=== PATIENT | female | born 1940 | race Caucasian/White ===

== ENCOUNTER 2017-11-02 09:45 | Emergency (ER) | payer MEDICARE ==
[2017-11-02 10:11] VITALS: RESP 18; TEMP 98.4
--- NOTE | 2017-11-02 10:33 | ED ---
General Adult HPI - General Chief complaint: Extremity Problem,Nontraumatic Stated complaint: Right leg pain Time Seen by Provider: 11/02/17 10:23 Source: patient, family, RN notes reviewed Mode of arrival: wheelchair Limitations: no limitations - History of Present Illness Initial comments: Patient is a pleasant 77-year-old female presenting to the emergency Department with right leg discomfort. Onset of symptoms was a week ago. Patient started with mild discomfort near the right ankle. Patient then went on a long car ride , 800 miles. Patient has had increase discomfort and swelling since that time. Patient states discomfort is somewhat in the foot. Patient states discomfort does extend all the way to the right calf and behind the right knee. Patient states discomfort does extend somewhat up on that as well. Patient states he does feel a little bit swollen. No injury. No redness. No fever. No chest pain or difficulty in breathing. - Related Data Home Medications Medication Instructions Recorded Confirmed Aspirin 81 mg PO DAILY 11/24/15 11/02/17 Atenolol [Tenormin] 25 mg PO DAILY 11/24/15 11/02/17 Benazepril HCl 20 mg PO BID 11/24/15 11/02/17 Levothyroxine Sodium [Levoxyl] 100 mcg PO DAILY 11/24/15 11/02/17 Lovastatin [Mevacor] 20 mg PO HS 11/24/15 11/02/17 Omeprazole [PriLOSEC] 20 mg PO AC-BRKFST 11/24/15 11/02/17 amLODIPine [Norvasc] 10 mg PO DAILY 11/24/15 11/02/17 Calcium Carbonate/Vitamin D3 1 cap PO DAILY 11/02/17 11/02/17 [Calcium 600-Vit D3 500 Softgel] Triamterene-Hctz 37.5-25Mg 1 cap PO DAILY 11/02/17 11/02/17 [Dyazide 37.5-25 Capsule] Previous Rx's Medication Instructions Recorded Cyclobenzaprine [Flexeril] 10 mg PO TID PRN #12 tablet 11/02/17 Allergies Allergy/AdvReac Type Severity Reaction Status Date / Time No Known Allergies Allergy Verified 11/02/17 10:18 Review of Systems ROS Statement: Those systems with pertinent positive or pertinent negative responses have been documented in the HPI. ROS Other: All systems not noted in ROS Statement are negative. Constitutional: Denies: fever Eyes: Denies: eye pain ENT: Denies: ear pain Respiratory: Denies: cough, dyspnea Cardiovascular: Denies: chest pain Endocrine: Denies: fatigue Gastrointestinal: Denies: abdominal pain Genitourinary: Denies: dysuria Musculoskeletal: Denies: back pain Skin: Denies: rash Neurological: Denies: weakness Past Medical History Past Medical History: Coronary Artery Disease (CAD), GERD/Reflux, Hyperlipidemia , Hypertension, Thyroid Disorder Additional Past Medical History / Comment(s): "LOW HR," ON 24H MONITOR THRU TODAY. History of Any Multi-Drug Resistant Organisms: None Reported Past Surgical History: Heart Catheterization With Stent, Tonsillectomy, Tubal Ligation Additional Past Surgical History / Comment(s): BILAT CATARACTS SX. PTCA 2012 EST. COLONOSCOPY Past Anesthesia/Blood Transfusion Reactions: No Reported Reaction Date of Last Stent Placement:: [id number] Past Psychological History: No Psychological Hx Reported Smoking Status: Never smoker Past Alcohol Use History: None Reported Past Drug Use History: None Reported - Past Family History Mother Family Medical History: No Reported History General Exam Limitations: no limitations General appearance: alert, in no apparent distress Head exam: Present: atraumatic Eye exam: Present: normal appearance Neck exam: Present: normal inspection Respiratory exam: Present: normal lung sounds bilaterally Cardiovascular Exam: Present: regular rate, normal rhythm Expanded Peripheral pulses: 2+: Posterior Tibialis (R), Dorsalis Pedis (R) GI/Abdominal exam: Present: soft. Absent: tenderness Extremities exam: Present: calf tenderness, other (No bony tenderness. Swelling is not evident. Patient does have some tenderness behind the right calf and extending behind the right knee. Distally the extremity is neurovascularly intact.) Neurological exam: Present: alert Psychiatric exam: Present: normal affect, normal mood Skin exam: Present: normal color. Absent: rash, erythema Course Vital Signs 11/02/17 10:08 Temperature 98.4 F Pulse Rate 60 Respiratory 18 Rate Blood Pressure 108/60 O2 Sat by Pulse 98 Oximetry Medical Decision Making - Medical Decision Making Patient reevaluated and resting comfortably in bed. Patient and family updated. - Radiology Data Radiology results: report reviewed (Ultrasound right leg shows no dvt.), image reviewed (Right ankle x-ray shows no acute fracture. There is a heel spur.) Disposition Clinical Impression: Leg pain Disposition: HOME SELF-CARE Condition: Stable Instructions: Leg Pain (ED), Edema (ED) Additional Instructions: Please follow-up with primary care physician and orthopedics in the next couple days for recheck. Return for fever, redness, increased pain, increased swelling , worsening symptoms or other concerns. Prescriptions: Cyclobenzaprine [Flexeril] 10 mg PO TID PRN #12 tablet PRN Reason: Pain Is patient prescribed a controlled substance at d/c from ED?: No Referrals: Ryan Christiansen MD [Primary Care Provider] - 1-2 days Time of Disposition: 11:40
--- NOTE | 2017-11-02 11:13 | US ---
EXAMINATION TYPE: US venous doppler duplex LE RT DATE OF EXAM: 11/02/2017 11:08 AM COMPARISON: NONE CLINICAL HISTORY: Pain and swelling right ankle. Recent 800 mile car ride. SIDE PERFORMED: Right TECHNIQUE: The lower extremity deep venous system is examined utilizing real time linear array sonog matthieu with graded compression, doppler sonography and color-flow sonography. VESSELS IMAGED: External Iliac Vein (EIV) Common Femoral Vein Deep Femoral Vein Greater Saphenous Vein * Femoral Vein Popliteal Vein Small Saphenous Vein * Proximal Calf Veins (* superficial vessels) Grayscale, color doppler, spectral doppler imaging performed of the deep veins of the right lower ext remity. There is normal flow, compressibility, vascular waveforms. Right Leg: Negative for DVT IMPRESSION: No sonographic evidence of deep venous thrombosis within the right lower extremity.
--- NOTE | 2017-11-02 11:29 | XR ---
EXAMINATION TYPE: XR ankle complete RT DATE OF EXAM: 11/02/2017 CLINICAL HISTORY: Right ankle pain with no known injury TECHNIQUE: Frontal, lateral and oblique images of the right ankle are obtained. COMPARISON: None. FINDINGS: There is no acute fracture/dislocation evident in the right ankle. The ankle mortise appe ars within normal limits. The overlying soft tissue appears unremarkable. Small plantar heel spurs/e nthesophyte is seen. IMPRESSION: There is no acute fracture or dislocation in the right ankle. Small plantar heel spur.
[2017-11-02] MEDS ORDERED: ORPHENADRINE 30 MG/ML 2 ML VIAL IM STA (11:38)
[2017-11-02 12:03] VITALS: BP 110/56; PULSE 62
== END 2017-11-02 12:02 | disposition home or self-care (01) ==
LOC: EC 09:45
DX: M79.604 Pain in right leg (principal); M77.31 Calcaneal spur, right foot; E78.5 Hyperlipidemia, unspecified; I10 Essential (primary) hypertension; I25.10 Atherosclerotic heart disease of native coronary artery without angina pectoris; K21.9 Gastro-esophageal reflux disease without esophagitis; E07.9 Disorder of thyroid, unspecified; Z79.82 Long term (current) use of aspirin; Z79.899 Other long term (current) drug therapy
CPT/HCPCS: 73610; 93971; 99284; 96372; J2360

== ENCOUNTER → 2017-11-20 | Outpatient (CLI) | payer MEDICARE ==
--- NOTE | 2017-11-22 11:24 | MM ---
Reason for exam: screening (asymptomatic). Last mammogram was performed 6 years and 1 month ago. History: Patient is postmenopausal. Physical Findings: A clinical breast exam by your physician is recommended on an annual basis and results should be correlated with mammographic findings. MG 3D Screening Mammo W/Cad Bilateral CC and MLO view(s) were taken. Prior study comparison: October 18, 2011, bilateral digital screening mammo w/CAD. September 21, 2010, bilateral digital screening mammo w/CAD. There are scattered fibroglandular densities. There is chronic nodularity in the right breast. No significant changes when compared with prior studies. ASSESSMENT: Negative, BI-RAD 1 RECOMMENDATION: Routine screening mammogram of both breasts in 1 year.
== END | disposition home or self-care (01) ==
LOC: RADMAMWWP 13:37
PROVIDERS: ATTEND Internal Medicine
DX: Z12.31 Encounter for screening mammogram for malignant neoplasm of breast (principal)
CPT/HCPCS: 77063; 77067

== ENCOUNTER → 2020-11-01 | Outpatient (CLI) | payer MEDICARE ==
--- NOTE | 2020-11-01 12:48 | MR ---
EXAMINATION TYPE: MR lumbar spine wo con DATE OF EXAM: 11/01/2020 COMPARISON: NONE HISTORY: Low back pain into rt lower extremity, burning and numbness in lower extremities TECHNIQUE: T1 and T2 axial and sagittal images of the lumbar spine are submitted. FINDINGS: There is no abnormal signal seen within the visualized spinal cord or paraspinal soft tissu es. History of the right kidney with multiple tiny cysts. Simple cyst involving the left kidney noted and there is a 3.3 cm abdominal aortic aneurysm. There is a moderate superior endplate compression fracture of T12 which appears chronic. At T12-L1 there is degenerative disc disease but no disc herniation or canal stenosis. No foraminal e ncroachment. At L1-2 there is degenerative disc disease but no disc herniation or canal stenosis. No foraminal enc roachment. At L2-3 there is degenerative disc disease but no disc herniation or canal stenosis. No foraminal enc roachment. At L3-4 there is degenerative disc disease but no disc herniation or canal stenosis. No foraminal enc roachment. Facet arthropathy noted. At L4-5 there is degenerative disc disease but no disc herniation or canal stenosis. No foraminal enc roachment. Facet arthropathy noted. Mild circumferential disc bulging. At L5-S1 there is degenerative disc disease but no disc herniation or canal stenosis. No foraminal en croachment. facet arthropathy noted. IMPRESSION: 1. Multilevel degenerative disc disease and facet arthropathy. Chronic appearing superior endplate co mpression fracture T12. 2. No disc herniation. There is very mild disc bulging noted at L4-5 and L5-S1 centrally. No focal he rniation or canal stenosis. 3. 3.3 cm abdominal aortic aneurysm 4. Atrophic right kidney.
== END | disposition home or self-care (01) ==
LOC: RADMRIMAIN 08:50
PROVIDERS: ATTEND Internal Medicine
DX: M51.27 Other intervertebral disc displacement, lumbosacral region (principal); M51.36 Other intervertebral disc degeneration, lumbar region; M47.816 Spondylosis without myelopathy or radiculopathy, lumbar region; I71.4 Abdominal aortic aneurysm, without rupture; N26.1 Atrophy of kidney (terminal)
CPT/HCPCS: 72148

== ENCOUNTER 2020-12-14 05:45 | Emergency (ER) | payer MEDICARE ==
[2020-12-14 05:54] VITALS: TEMP 98.4
[2020-12-14] MEDS ORDERED: KETOROLAC 15 MG/ML 1 ML VIAL IVP STA (06:22)
[2020-12-14] MEDS ORDERED: ONDANSETRON 4 MG/2 ML VIAL IVP STA (06:22)
[2020-12-14] MEDS ORDERED: HYDROmorphone 0.5 MG/0.5 ML SYRINGE IVP STA (06:22)
[2020-12-14] MEDS ORDERED: atenoloL 50 MG TAB PO STA (06:25)
[2020-12-14] MEDS ORDERED: LOSARTAN 50 MG TAB PO STA (06:25)
[2020-12-14] MEDS ORDERED: methylPREDNISolone SOD SUCCI 125 MG/2 ML VIAL IV STA (06:25)
--- NOTE | 2020-12-14 06:56 | ED ---
Back Pain HPI - General Chief Complaint: Back Pain/Injury Stated Complaint: Back Pain Time Seen by Provider: 12/14/20 06:03 Source: patient, RN notes reviewed Mode of arrival: ambulatory Limitations: no limitations - History of Present Illness Initial Comments: This is a 80-year-old female presents emergency Department with chief complaint of low back pain. This has been ongoing issue. Patient had an MRI ordered and completed by her PCP patient did follow-up with Dr. Taylor in which she is ordered epidural injections. Patient has not been contacted for her plane he had. Patient states the pain states her low back she does have some right lower leg symptoms. This is been ongoing denies any bowel, bladder incontinence or retention last seizures states that she takes tramadol occasionally for the pain she did recently complete Medrol Dosepak which she states she felt better on the higher dose - Related Data Home Medications Medication Instructions Recorded Confirmed Aspirin 81 mg PO HS 11/24/15 12/14/20 Levothyroxine Sodium [Levoxyl] 100 mcg PO DAILY 11/24/15 12/14/20 Omeprazole [PriLOSEC] 20 mg PO AC-BRKFST 11/24/15 12/14/20 atenoloL [Tenormin] 25 mg PO DAILY 11/24/15 12/14/20 Acetaminophen Tab [Tylenol] 650 mg PO Q4H PRN 12/14/20 12/14/20 Atorvastatin [Lipitor] 40 mg PO HS 12/14/20 12/14/20 Calcium Carbonate [Calcium] 600 mg PO BID 12/14/20 12/14/20 Cyanocobalamin (Vitamin B-12) 1,000 mcg PO DAILY 12/14/20 12/14/20 [Vitamin B-12] Gabapentin [Neurontin] 300 mg PO TID 12/14/20 12/14/20 Losartan Potassium 100 mg PO DAILY 12/14/20 12/14/20 hydrALAZINE HCL [Apresoline] 25 mg PO TID 12/14/20 12/14/20 methylPREDNISolone Dose Pack See Taper PO DIRECTED 12/14/20 12/14/20 [Medrol Dose Pack] traMADol HCL 25 mg PO TID PRN 12/14/20 12/14/20 Previous Rx's Medication Instructions Recorded HYDROcodone/APAP 5-325MG [[place] 5] 1 each PO Q6HR PRN #12 tab 12/14/20 Allergies Allergy/AdvReac Type Severity Reaction Status Date / Time No Known Allergies Allergy Verified 12/14/20 07:42 Review of Systems ROS Statement: Those systems with pertinent positive or pertinent negative responses have been documented in the HPI. ROS Other: All systems not noted in ROS Statement are negative. Past Medical History Past Medical History: Coronary Artery Disease (CAD), GERD/Reflux, Hyperlipidem ia, Hypertension, Thyroid Disorder Additional Past Medical History / Comment(s): "LOW HR," ON 24H MONITOR THRU TODAY. History of Any Multi-Drug Resistant Organisms: None Reported Past Surgical History: Heart Catheterization With Stent, Tonsillectomy, Tubal Ligation Additional Past Surgical History / Comment(s): BILAT CATARACTS SX. PTCA 2012 EST. COLONOSCOPY Past Anesthesia/Blood Transfusion Reactions: No Reported Reaction Date of Last Stent Placement:: [id number] Past Psychological History: No Psychological Hx Reported Smoking Status: Never smoker Past Alcohol Use History: None Reported Past Drug Use History: None Reported - Past Family History Mother Family Medical History: No Reported History General Exam General appearance: alert, in no apparent distress Head exam: Present: atraumatic, normocephalic, normal inspection Respiratory exam: Present: normal lung sounds bilaterally. Absent: respiratory distress, wheezes, rales, rhonchi, stridor Cardiovascular Exam: Present: regular rate, normal rhythm, normal heart sounds. Absent: systolic murmur, diastolic murmur, rubs, gallop, clicks GI/Abdominal exam: Present: soft, normal bowel sounds. Absent: distended, tenderness, guarding, rebound, rigid Extremities exam: Present: normal inspection, full ROM, normal capillary refill. Absent: tenderness, pedal edema, joint swelling, calf tenderness Back exam: Present: full ROM, tenderness, paraspinal tenderness. Absent: vertebral tenderness Neurological exam: Present: alert, oriented X3, reflexes normal. Absent: motor sensory deficit Skin exam: Present: warm, dry, intact, normal color. Absent: rash Course Vital Signs 12/14/20 12/14/20 12/14/20 05:51 07:00 08:06 Temperature 98.4 F Pulse Rate 63 56 L Respiratory 18 16 Rate Blood Pressure 220/95 210/106 163/84 O2 Sat by Pulse 98 100 Oximetry 12/14/20 12/14/20 08:47 10:10 Temperature Pulse Rate 54 L 60 Respiratory 16 18 Rate Blood Pressure 148/78 139/62 O2 Sat by Pulse 100 93 L Oximetry Medical Decision Making - Medical Decision Making 80-year-old female presented for back pain. I did review the MRI which showed degenerative changes. Patient was seen by Dr. Taylor and referred to pain management. I did contact pain management the did not have an appointment schedule though there is a referral as I talked to salvador Hatch on-call for Dr. Taylor. Patient will follow-up in office for further pain medication. Patient will be written [place] Disposition Clinical Impression: Lumbar radiculopathy, Hypertension Disposition: HOME SELF-CARE Condition: Stable Instructions (If sedation given, give patient instructions): Acute Low Back Pain (ED) Additional Instructions: Please return to the Emergency Department if symptoms worsen or any other concerns. Prescriptions: HYDROcodone/APAP 5-325MG [[place] 5] 1 each PO Q6HR PRN #12 tab PRN Reason: Pain Is patient prescribed a controlled substance at d/c from ED?: Yes When asked, does pt state using other controlled substances?: Yes If prescribed controlled substance>3 days was MAPS reviewed?: Prescribed <3 Days If opioid is for acute pain is fill amount 7 days or less?: Yes If Rx opioid, was Start Talking consent form obtained?: Yes Referrals: Levi Garg MD [Primary Care Provider] - 1-2 days Time of Disposition: 10:27
[2020-12-14] MEDS ORDERED: hydrALAZINE HCL 20 MG/ML 1 ML VIAL IVP STA (07:22)
[2020-12-14 10:13] VITALS: BP 139/62; PULSE 60; RESP 18
== END 2020-12-14 11:11 | disposition home or self-care (01) ==
LOC: EC 05:45
DX: M54.16 Radiculopathy, lumbar region (principal); I10 Essential (primary) hypertension; I25.10 Atherosclerotic heart disease of native coronary artery without angina pectoris; E78.5 Hyperlipidemia, unspecified; K21.9 Gastro-esophageal reflux disease without esophagitis; Z79.82 Long term (current) use of aspirin; Z79.890 Hormone replacement therapy; Z79.899 Other long term (current) drug therapy
CPT/HCPCS: 96374; 96375 ×4; 99283; J0360; J2930; J2405; J1885; J1170

== ENCOUNTER 2021-01-04 06:57 | Day surgery (SDC) | payer MEDICARE ==
[2020-12-31 16:02] VITALS: BMI 31.1
[~2021-01-04 06:57] MED LIST: LACTATED RINGERS 1,000 ML IV SCH
[2021-01-04 07:24] VITALS: RESP 16; TEMP 97.6
[2021-01-04] MEDS ORDERED: LIDOCAINE 1% (10MG/ML) FOR IV START INTRADERMA ONE (07:28)
[2021-01-04] MEDS ORDERED: MIDAZOLAM 2 MG/2 ML VIAL ONE (07:41)
[2021-01-04] MEDS ORDERED: methylPREDNISolone ACETATE 40 MG/ML 1 ML VIAL ONE (07:41)
[2021-01-04] MEDS ORDERED: fentaNYL (PF) 50 MCG/ML 2 ML AMP ONE (07:41)
[2021-01-04] MEDS ORDERED: IOPAMIDOL M200 10 ML VIAL ONE (07:41)
--- NOTE | 2021-01-04 07:54 | P.PCN ---
Date of Procedure: 01/04/21 Procedure(s) Performed: PREOPERATIVE DIAGNOSIS: 1- Lumbar Degenerative Disc Diseases 2-Lumbar spondylosis with Facet arthropathy without myelopathy POSTOPERATIVE DIAGNOSIS: Same as preop diagnosis. PROCEDURE 1. Lumbar epidural steroid injection under fluoroscopic guidance at the L5-S1 level. (Fluoroscopy imaging was available in radiology department) 2. Lumbar epidurogram. ANESTHESIA: Local with 1% lidocaine 3 ml and , moderate sedation with intravenous Versed 1 mg ,and fentanyle 50 Mcg EBL: Minimal PROCEDURE INDICATION: The patient with low back pain and radiculitis symptoms unresponsive to conservative treatment. Fluoroscopy was used to optimize visualization of the needle placement and to maximize safety. PROCEDURE DESCRIPTION / TECHNIQUE: The patient was seen and identified in the preoperative area. Risks, benefits, complications including but not limited to infections ,bleeding ,allergic reaction to the medications ,nerve damage and not complete pain releife , and alternatives were discussed with the patient. The patient agreed to proceed with the procedure and signed the consent. IV was started, and vital signs were stable. Patient was taken to the OR and time out was completed. The patient was placed in the prone position on procedure table and a pillow was placed under the abdomen to reduce lumbar lordosis. The lumbosacral area was prepped and draped in the usual sterile fashion.ere closely monitored during the procedure. Co nscious sedation was used during the procedure to decrease patients anxiety. Vital signs was monitered during the entire procedure. Using anterior-posterior fluoroscopy, the L5-S1 interlaminar space was identified and the skin over this site was marked and then infiltrated with 1% lidocaine subcutaneously. Subsequently, a 20-gauge Tuohy epidural needle was inserted and advanced toward the epidural space using the ``Loss of resistance technique and guided by AP and lateral fluoroscopy. The correct needle position in the epidural space was verified with the injection of 2 mL of the water solub le contrast dye Isovue 200 contrast and observing an excellent epidurogram with the epidural spread of the dye, after negative aspiration for blood and CSF and in the absence of paresthesias. Again after negative aspiration, a 6 ml mixture containing 40 mg of Depo-medrol , and 2 ml of preservative free Normal Saline, and 2 ml of preservative free lidocaine 1% solution was injected and a washout of epidurogram was seen. Needle was withdrawn intact, skin was cleansed, and bandages were applied. COMPLICATIONS: None DISPOSITION / PLANS: The patient was placed in a supine position and transferred to the recovery area in a stable condition for observation. There was no evidence of lower extremity motor or sensory deficit after the procedure. Patient was discharged from the recovery room after meeting discharge criteria. Home discharge instructions were given to the patient by the staff. The patient was reexamined prior to discharge. The patient will schedule a follow up in the clinic in 2-4 weeks.
[2021-01-04] MEDS ORDERED: IV FLUID CONTINUATION 1,000 ML IV ONE (07:57)
[2021-01-04 08:13] VITALS: BP 149/85; PULSE 57
--- NOTE | 2021-01-04 08:25 | FL ---
EXAMINATION TYPE: FL guided pain mgmt statistic DATE OF EXAM: 01/04/2021 CLINICAL HISTORY: Low back pain. TECHNIQUE: Fluoroscopy. COMPARISON: None. FINDINGS: Fluoroscopic guidance was provided during pain relief procedure performed by Dr. Grover . A total of 3 seconds of fluoroscopic time was utilized during the procedure and 1 spot images are acquired. Single image acquired shows needle localization at L5 level. IMPRESSION: As Above.
== END 2021-01-04 08:28 | disposition home or self-care (01) ==
LOC: ORPAIN 06:57
PROVIDERS: ATTEND Specialist
DX: M51.36 Other intervertebral disc degeneration, lumbar region (principal); M47.816 Spondylosis without myelopathy or radiculopathy, lumbar region
CPT/HCPCS: 62323; J2250; J1030; J3010; Q9966

== ENCOUNTER 2021-02-08 08:48 | Day surgery (SDC) | payer MEDICARE ==
[2021-02-04 14:28] VITALS: BMI 29.2
[2021-02-08 09:39] VITALS: RESP 16; TEMP 97.9
[2021-02-08] MEDS ORDERED: LIDOCAINE 1% (10MG/ML) FOR IV START INTRADERMA ONE (09:41)
[2021-02-08] MEDS ORDERED: ROPIVACAINE 5MG/ML 20ML VIAL ONE (09:59)
[2021-02-08] MEDS ORDERED: IOPAMIDOL M200 10 ML VIAL ONE (09:59)
[2021-02-08] MEDS ORDERED: MIDAZOLAM 2 MG/2 ML VIAL ONE (09:59)
[2021-02-08] MEDS ORDERED: fentaNYL (PF) 50 MCG/ML 2 ML AMP ONE (09:59)
[2021-02-08] MEDS ORDERED: TRIAMCINOLONE ACETONIDE 40 MG/ML 1 ML VIAL ONE (09:59)
--- NOTE | 2021-02-08 10:13 | P.PCN ---
Date of Procedure: 02/08/21 Surgeon: Cynthia Olson Pathology: none sent Condition: stable Disposition: PACU Description of Procedure: 1-Lumbar radiculopathy 2- Lumber Degenerative Disc Diseases. POSTOPERATIVE DIAGNOSIS: 1-Lumbar radiculopathy. 2-Lumbar Degenerative Disc Diseases PROCEDURE 1. Lumbar epidural steroid injection under fluoroscopic guidance at the L5-S1 level in the right paramedian approach. 2. Lumbar epidurogram. ANESTHESIA: Local with 1% lidocaine; and IV moderate conscious sedation with Versed and fentanyl EBL: Minimal PROCEDURE INDICATION: The patient with low back pain and radiculitis symptoms u nresponsive to conservative treatment. Fluoroscopy was used to optimize visualization of the needle placement and to maximize safety. PROCEDURE DESCRIPTION / TECHNIQUE: The patient was seen and identified in the preoperative area. Risks, benefits, complications including but not limited to infections ,bleeding ,allergic reaction to the medications ,nerve damage and not complete pain relief , and alternatives were discussed with the patient. The patient agreed to proceed with the procedure and signed the consent. IV was started, and vital signs were stable. Patient was taken to the OR and time out was completed. The patient was placed in the prone position on procedure table and a pillow was placed under the abdomen to reduce lumbar lordosis. The lumbosacral area was prepped and draped in the usual sterile fashion with ChloraPrep.Patient was closely monitored during the procedure. Conscious sedation was used during the procedure to decrease patients anxiety. Vital signs were monitered during the entire procedure. Using anterior-posterior fluoroscopy, the L5-S1 interlaminar space was identified and the skin over this site was marked and then infiltrated with 1% lidocaine subcutaneously. Subsequently, a 20-gauge Tuohy epidural needle was inserted and advanced toward the epidural space using the Loss of resistance to air technique and guided by AP and lateral fluoroscopy. The correct needle position in the epidural space was verified with the injection of 1 mL of the water soluble contrast dye Omnipaque 180 contrast and observing an excellent epidurogram with the epidural spread of the dye, after negative aspiration for blood and CSF and in the absence of paresthesias. Again after negative aspiration, a 7 ml mixture containing 40 mg of Kenalog and 5 ml of preservative free Normal Saline, and 2 ml of preservative free ropivacaine 0.5% solution was injected and a washout of epidurogram was seen. Needle was withdrawn intact, skin was cleansed, and bandages were applied. patient tolerated procedure well and was transferred to PACU in stable condition.A copy of the needle placement picture was saved to the fluoroscopy machine. COMPLICATIONS: None DISPOSITION / PLANS: The patient was placed in a supine position and transferred to the recovery area in a stable condition for observation. There was no evidence of lower extremity motor or sensory deficit after the procedure. Patient was discharged from the recovery room after meeting discharge criteria. Home discharge instructions were given to the patient by the staff. The patient was reexamined prior to discharge. The patient will schedule a follow up in the clinic in 2-4 weeks.
[2021-02-08] MEDS ORDERED: IV FLUID CONTINUATION 750 ML IV ONE (10:20)
--- NOTE | 2021-02-08 10:22 | FL ---
Fluoroscopy INDICATION: Pain FINDINGS: Fluoroscopy time: 4 seconds. Images obtained: 2. IMPRESSIONS: 1. Documentation of fluoroscopy.
[2021-02-08 10:52] VITALS: BP 129/76; PULSE 55
== END 2021-02-08 10:55 | disposition home or self-care (01) ==
LOC: ORPAIN 08:48
PROVIDERS: ATTEND Anesthesiology
DX: M51.16 Intervertebral disc disorders with radiculopathy, lumbar region (principal)
CPT/HCPCS: 62323; J2250; J3301; J3010; Q9966; J2795; 99152

== ENCOUNTER → 2021-03-09 | Outpatient (CLI) | payer MEDICARE ==
[2021-03-09 11:13] VITALS: BP 192/98; PULSE 66; RESP 18; TEMP 98
--- NOTE | 2021-03-09 11:38 | P.PN ---
Subjective Progress Note Date: 03/09/21 This 80-year-old female presenting to clinic today for follow-up appointment for continued chronic low back pain. She has been diagnosed with lumbar degenerative disc disease, lumbar spondylosis without myelopathy. Previously we have done 2 lumbar epidural steroid injections at L5-S1. Patient reports that she's had about 50% relief with these injections however her low back pain continues. Pain increases with any activity. Patient completed physical therapy about 4 years ago when she continued to need to do home exercise program including stretching. She continues to use oral pain medications include tramado without any significant relief. Objective - Vital Signs Vital signs: Vital Signs Temp 98.0 F 03/09/21 11:08 Pulse 66 03/09/21 11:08 Resp 18 03/09/21 11:08 BP 192/98 03/09/21 11:08 Pulse Ox 97 03/09/21 11:08 Intake & Output 03/08/21 03/09/21 03/09/21 18:59 06:59 18:59 Weight 76.204 kg - Exam Physical Examinations : -Constitutiona : Cooperative , not in acute distress . -HEENT : nech : supple , no Lymphadenopathy , normal thyroid size . : eyes : no ptosis , no icterus, no photophobia . - neurologic : Cranial nerve II to XII intact , no focal neurological deffecit . -psychatric : alert , oriented X 3 , appropriate affect , intact judgment and insight . -Lymphatic : no Lymphadenopathy . - musculoskeltal : Lumber spine moter stegnth lower extremities ,thigh and legs 5/5 Right side , 5/5 Left side deep tendon reflexes : normal Knee Jerk , normal ankle Jerk lumber facet Loading Test =positive Right , positive Left Range of motion of the lumbar spine Flexion 30 degrees, extension 10 degrees strait leg raising test = positive right side at 60 tenderness over the Sacroiliac joint on the Right , and Left sides Assessment and Plan Plan: Assessment and plan #1 lumbar disc disease. #2 lumbar spondylosis with facet arthropathy. Patient would be a good candidate for agnostic bilateral lumbar medial branch block L4/5 and L5-S1 Time with Patient: Less than 30
== END ==
LOC: PNWHC3 10:38
PROVIDERS: ATTEND Specialist
DX: M51.36 Other intervertebral disc degeneration, lumbar region (principal); M47.816 Spondylosis without myelopathy or radiculopathy, lumbar region
CPT/HCPCS: 99211

== ENCOUNTER 2021-04-29 06:57 | Day surgery (SDC) | payer MEDICARE ==
[2021-04-27 15:54] VITALS: BMI 29.2
[2021-04-29] MEDS ORDERED: LACTATED RINGERS 1,000 ML IV SCH (07:24)
[2021-04-29 07:39] VITALS: TEMP 97.8
[2021-04-29] MEDS ORDERED: LIDOCAINE 1% (10MG/ML) FOR IV START INTRADERMA ONE (07:39)
[2021-04-29] MEDS ORDERED: TRIAMCINOLONE ACETONIDE 40 MG/ML 1 ML VIAL ONE (08:10)
[2021-04-29] MEDS ORDERED: ROPIVACAINE 5MG/ML 20ML VIAL ONE (08:10)
--- NOTE | 2021-04-29 08:26 | P.PCN ---
Date of Procedure: 04/29/21 Procedure(s) Performed: PREOPERATIVE DIAGNOSIS : 1- Lumbar spondylosis with Facet Arthropathy without myelopathy . 2- Lumber degenerative disc disease POSTOPERATIVE DIAGNOSIS: 1- Lumbar spondylosis with Facet Arthropathy without myelopathy . 2- Lumber degenerative disc disease PROCEDURE: Diagnostic bilateral L3 , L4 , and L5 medial branch block under fluoroscopy guidance(fluoroscopy images available in the radiology Department ) ( To target the facet joint between Bilateral L4-5 , and L5-S1 ) ANESTHESIA: Monitored anesthesia care as per anesthesia department. EBL: Minimal COMPLICATION: None PROCEDURE INDICATION: Chronic low back pain secondary to Facet arthropathy unresponsive to conservative treatment. PROCEDURE DESCRIPTION: the patient was seen and identified in the preop holding area , risks and benefits and possible complications of the procedure and alternative were discussed with the patient, and the patient agreed to proceed with the procedure and signed the consent and vital signs monitored during the procedure and fluoroscopy was used to maximize the benefit and accuracy of the needle placement, and sedation was given to decrease patient anxiety, patient was taken to the procedure room and placed in prone position vital signs monitored in the back prepped with chlorhexidine X3 then under strict sterile technique using a right oblique fluoroscopy ,the junction of the transverse process and the superior articulating process of the right L3 , L4 , and L5 vertebra which corresponding to the fluoroscopy image of the eye of the Jhonatan dog on the block side for the medial branches and subsequently , after local infiltration of skin and subcu tissuies with Ropivacaine 0.5 % , one mL at each level ,then 22-gauge Quincke-type needles , 3 needle was used , each one of them placed at the junction of the base of the transverse process and the superior articular process at the appropriate level, and the needle was advanced until the periosteum contacted, needle placement confirmed with AP oblique and lateral view and after appropriate needle placement confirmed, and after negative aspiration for heme and CSF and there was no paresthesia 1-1/2 mL of Ropivacaine 0.5% mixed with 20 mg Kenalog, then half mL injected at each level after negative aspiration the needle subsequently removed and the same procedure repeated for the left side at left side at L3 , L4 and L5 levels. At the end of the procedure and the needles removed and a bandage applied after the skin was cleaned the cleaning solution patient taken to recovery room in stable condition and monitors in the recovery room for 20-30 minutes and discharged home in stable condition after discharge criteria met and patient will follow up with the pain clinic in 2-4 weeks
[2021-04-29] MEDS ORDERED: IV FLUID CONTINUATION 1,000 ML IV ONE (08:29)
[2021-04-29 08:32] VITALS: RESP 18
[2021-04-29 08:49] VITALS: BP 167/88; PULSE 50
--- NOTE | 2021-04-29 08:51 | FL ---
Fluoroscopy INDICATION: Pain FINDINGS: Fluoroscopy time: 9 seconds. Images obtained: 4. IMPRESSIONS: 1. Documentation of fluoroscopy.
[2021-04-29] MEDS ORDERED: MIDAZOLAM 2 MG/2 ML VIAL ONE (09:39)
[2021-04-29] MEDS ORDERED: .fentaNYL (PF) 50 MCG/ML 2 ML AMP ONE (09:39)
== END 2021-04-29 09:00 | disposition home or self-care (01) ==
LOC: ORPAIN 06:57
PROVIDERS: ATTEND Specialist
DX: G89.29 Other chronic pain (principal); M54.50 Low back pain, unspecified; M47.816 Spondylosis without myelopathy or radiculopathy, lumbar region; M51.16 Intervertebral disc disorders with radiculopathy, lumbar region; I10 Essential (primary) hypertension; E78.5 Hyperlipidemia, unspecified; E07.9 Disorder of thyroid, unspecified; K21.9 Gastro-esophageal reflux disease without esophagitis; Z97.2 Presence of dental prosthetic device (complete) (partial); Z79.890 Hormone replacement therapy; Z79.891 Long term (current) use of opiate analgesic; Z79.899 Other long term (current) drug therapy
CPT/HCPCS: 64493; 64494; J2250; J3301; J3010; J2795

== ENCOUNTER 2021-06-10 06:48 | Day surgery (SDC) | payer MEDICARE ==
[2021-06-07 11:36] VITALS: BMI 29.6
[2021-06-10 07:23] VITALS: RESP 16; TEMP 97.1
[2021-06-10] MEDS ORDERED: LACTATED RINGERS 1,000 ML IV ONE (07:50)
[2021-06-10] MEDS ORDERED: fentaNYL (PF) 50 MCG/ML 2 ML AMP ONE (08:22)
[2021-06-10] MEDS ORDERED: methylPREDNISolone ACETATE 40 MG/ML 1 ML VIAL ONE (08:22)
[2021-06-10] MEDS ORDERED: MIDAZOLAM 2 MG/2 ML VIAL ONE (08:22)
[2021-06-10] MEDS ORDERED: ROPIVACAINE 5MG/ML 20ML VIAL ONE (08:22)
--- NOTE | 2021-06-10 08:38 | P.PCN ---
Date of Procedure: 06/10/21 Procedure(s) Performed: PREOPERATIVE DIAGNOSIS : 1- Lumbar spondylosis with Facet Arthropathy without myelopathy . 2- Lumber degenerative disc disease POSTOPERATIVE DIAGNOSIS: 1- Lumbar spondylosis with Facet Arthropathy without myelopathy . 2- Lumber degenerative disc disease PROCEDURE: Diagnostic bilateral L3 , L4 , and L5 medial branch block under fluoroscopy guidance(fluoroscopy images available in the radiology Department ) ( To target the facet joint between Bilateral L4-5 , and L5-S1 )# 2nd ANESTHESIA: Monitored anesthesia care as per anesthesia department. EBL: Minimal COMPLICATION: None PROCEDURE INDICATION: Chronic low back pain secondary to Facet arthropathy unresponsive to conservative treatment. PROCEDURE DESCRIPTION: the patient was seen and identified in the preop holding area , risks and benefits and possible complications of the procedure and alternative were discussed with the patient, and the patient agreed to proceed with the procedure and signed the consent and vital signs monitored during the procedure and fluoroscopy was used to maximize the benefit and accuracy of the needle placement, and sedation was given to decrease patient anxiety, patient was taken to the procedure room and placed in prone position vital signs monitored in the back prepped with chlorhexidine X3 then under strict sterile technique using a right oblique fluoroscopy ,the junction of the transverse process and the superior articulating process of the right L3 , L4 , and L5 vertebra which corresponding to the fluoroscopy image of the eye of the Jhonatan dog on the block side for the medial branches and subsequently , after local infiltration of skin and subcu tissuies with Ropivacaine 0.5 % , one mL at each level ,then 22-gauge Quincke-type needles , 3 needle was used , each one of them placed at the junction of the base of the transverse process and the superior articular process at the appropriate level, and the needle was advanced until the periosteum contacted, needle placement confirmed with AP oblique and lateral view and after appropriate needle placement confirmed, and after negative aspiration for heme and CSF and there was no paresthesia 1-1/2 mL of Ropivacaine 0.5% mixed with 20 mg Depo-Medrol, then half mL injected at each level after negative aspiration the needle subsequently removed and the same procedure repeated for the left side at left side at L3 , L4 and L5 levels. At the end of the procedure and the needles removed and a bandage applied after the skin was cleaned the cleaning solution patient taken to recovery room in stable condition and monitors in the recovery room for 20-30 minutes and discharged home in stable condition after discharge criteria met and patient will follow up with the pain clinic in 2-4 weeks
--- NOTE | 2021-06-10 08:45 | FL ---
EXAMINATION TYPE: FL guided pain mgmt statistic DATE OF EXAM: 06/10/2021 CLINICAL HISTORY: Low back pain. TECHNIQUE: Fluoroscopy. COMPARISON: None. FINDINGS: Fluoroscopic guidance was provided during pain relief procedure performed by Dr. Grover . A total of 4 seconds of fluoroscopic time was utilized during the procedure and 4 spot images are acquired. Images acquired shows needle localization at several levels in the lower lumbar spine off the midline bilaterally. IMPRESSION: As Above.
[2021-06-10] MEDS ORDERED: IV FLUID CONTINUATION 1,000 ML IV ONE (08:47)
[2021-06-10] MEDS ORDERED: LACTATED RINGERS 1,000 ML IV SCH (08:52)
[2021-06-10 09:01] VITALS: BP 170/75; PULSE 56
== END 2021-06-10 09:15 | disposition home or self-care (01) ==
LOC: ORPAIN 06:48
PROVIDERS: ATTEND Specialist
DX: G89.29 Other chronic pain (principal); M47.816 Spondylosis without myelopathy or radiculopathy, lumbar region; I10 Essential (primary) hypertension; E78.5 Hyperlipidemia, unspecified; E07.9 Disorder of thyroid, unspecified; G43.909 Migraine, unspecified, not intractable, without status migrainosus; K21.9 Gastro-esophageal reflux disease without esophagitis; Z98.51 Tubal ligation status; Z97.2 Presence of dental prosthetic device (complete) (partial); Z79.890 Hormone replacement therapy; Z79.891 Long term (current) use of opiate analgesic; Z79.899 Other long term (current) drug therapy
CPT/HCPCS: 64493; 64494; J2250; J1030; J3010; J2795

== ENCOUNTER → 2021-06-30 | Outpatient (CLI) | payer MEDICARE ==
[2021-06-30 10:29] VITALS: BP 182/84; PULSE 66; RESP 18; TEMP 98
--- NOTE | 2021-06-30 10:47 | P.PN ---
Subjective Progress Note Date: 06/30/21 Principal diagnosis: A 80 yr old female with a history of severe and chronic low back pain secondary to lumbar degenerative disc diseases and lumbar spondylosis with facet arthropathy presents today for follow-up for a bilateral facet block of the medial branches at L4-L5 and L5-S1 #2. She states she experienced 75% pain relief for one hours status post procedure and was disconcerted when the pain started to return again. Pain level is currently at 2 out of 10 in intensity dull and achy in the right aspect of the lumbar spine as progresses to 5 out of 10 in intensity with activity such as lifting, twisting, vacuuming and laying on her right side. Pain is alleviated with medications, icy hot topical, injections, physical therapy 6 years ago, laying supine on her left side and rest. Interventional pain procedures completed include LESIs and facet block of the medial branches L4-L5 to L5-S1 #2 Patient is currently on tramadol and Tylenol OTC Patient denies any side effects of the medication(s), denies excessive drowsiness or sleepiness, denies suicidal ideation and reports that the current pain medication is helping to control the pain and improve activities of daily living. Patient denies any motor or sensory deficits. Patient denies any fever or night sweats, denies any change in the bowel movements or urination. Physical Examination: -Constitutional: Cooperative. Not in acute distress . -HEENT: Neck is supple. No lymphadenopathy. No thyromegaly. Normal thyroid size. Eyes: No ptosis , no icterus, no photophobia. ENT: No auditory deficits. Normal oropharynx. No Thrush. - Respiratory: Chest clear to auscultations bilaterally. No wheezing. No rhonchi. - Cardiovascular: Regular rate and rhythm. S1 / S2 , no S3 , no S4. - Gastrointestinal: Abdomen soft no tenderness. Bowel sounds positive in all four quadrants. No organomegaly. - Genitourinary: Deferred. - Neurologic: Cranial nerve II to XII intact. No focal neurological deficits. - Psychatric: Alert & oriented x 3. Matching mood & appropriate affect. Judgment and insight intact. - Lymphatic: No Lymphadenopathy. - Musculoskeletal: Cervical spine: Muscle bulk/ tone/ strength in the bilateral upper extremities normal. Facet loading test cervical area positive. Lumbar spine: Motor bulk/ tone/ strength lower extremities , thigh and legs : 5/5 Deep tendon reflexes : Normal Knee Jerk. Normal Ankle Jerk . Vertebral body tenderness to palpation over Lumbar Facet Loading Test positive over bilateral L4-L5 and L5-S1 with jump reflex Moderate lumbar paraspinal spasms noted on the right L4 to L5 Straight Leg Raise: positive at 30 degrees right side/ left side Gaenslen's Test postive Sacral spine : Severe tenderness over the Sacroiliac joint: right side / left side Range of motion: Flexion of the lumbar spine <60 degrees Range of motion: Extension of the lumbar spine <20 degrees Gaenslen's Test positive Karen test: positive right side / left side Assessment and plan: Chronic low back pain secondary to lumbar degenerative disc disease , lumbar spondylosis with facet arthropathy without myelopathy Recommendation of bilateral RFA of the L4-L5 and L5-S1 Risks, benefits of procedure discussed and patient verbalized understanding Denies use of aspirin or anticoagulants All patient questions answered MAPS reviewed and it was appropriate. I have spent 31 minutes on patient care today. Dr Grover was available by phone for the evaluation of this patient. The time was used to review the medical records including relevant urine studies and Prescription history (MAPs), review of the available imaging, evaluation and examination of the patient, coordination of care with the medical staff and if applicable referring physicians, as well as creation of the medical record Objective - Vital Signs Vital signs: Vital Signs Temp 98.0 F 06/30/21 10:19 Pulse 66 06/30/21 10:19 Resp 18 06/30/21 10:19 BP 182/84 06/30/21 10:19 Pulse Ox 96 06/30/21 10:19 PQRS Measure Charge Sheet Mode of Arrival: Ambulatory - Pain Location Lower Back Non-Pharmacological Interventions: Heat, Inactivity, Position/Reposition Pharmacological Interventions: Block, Epidural, PRN Medication, Topical Medication PQRS Narrative: Smoking Status Never smoker Blood Pressure 182/84 Pain Intensity [Lower Back] 2 Scale Used Numeric (1 - 10) Hx Alcohol Use (MH) No Home Medications: Ambulatory Orders Levothyroxine Sodium [Levoxyl] 100 mcg PO DAILY 11/24/15 Omeprazole [PriLOSEC] 20 mg PO AC-BRKFST 11/24/15 Acetaminophen Tab [Tylenol] 650 mg PO Q4H PRN 12/14/20 Atorvastatin [Lipitor] 40 mg PO HS 12/14/20 Calcium Carbonate [Calcium] 600 mg PO BID 12/14/20 Losartan Potassium 100 mg PO DAILY 12/14/20 hydrALAZINE HCL [Apresoline] 50 mg PO TID 12/14/20 traMADol HCL 25 - 50 mg PO DAILY 12/14/20 Cyanocobalamin (Vitamin B-12) [Vitamin B-12] 1,000 mcg PO DAILY 12/31/20 Atenolol [Tenormin] 50 mg PO DAILY 06/07/21 Doxylamine Succinate [Unisom] 25 mg PO HS 06/07/21
== END ==
LOC: PNWHC3 09:57
PROVIDERS: ATTEND Physician Assistant Medical
DX: M51.36 Other intervertebral disc degeneration, lumbar region (principal); M47.816 Spondylosis without myelopathy or radiculopathy, lumbar region; G89.29 Other chronic pain
CPT/HCPCS: 99211

== ENCOUNTER 2021-08-12 06:43 | Day surgery (SDC) | payer MEDICARE ==
[2021-08-10 15:59] VITALS: BMI 28.9
[2021-08-12] MEDS ORDERED: LACTATED RINGERS 1,000 ML IV SCH (06:52)
[2021-08-12] MEDS ORDERED: LIDOCAINE 1% (10MG/ML) FOR IV START INTRADERMA PRN (06:52)
[2021-08-12 07:05] VITALS: TEMP 97
[2021-08-12] MEDS ORDERED: fentaNYL (PF) 50 MCG/ML 2 ML AMP ONE (07:48)
[2021-08-12] MEDS ORDERED: ROPIVACAINE 5MG/ML 20ML VIAL ONE (07:48)
[2021-08-12] MEDS ORDERED: methylPREDNISolone ACETATE 40 MG/ML 1 ML VIAL ONE (07:48)
[2021-08-12] MEDS ORDERED: MIDAZOLAM 2 MG/2 ML VIAL ONE (07:48)
--- NOTE | 2021-08-12 08:13 | P.PCN ---
Date of Procedure: 08/12/21 Procedure(s) Performed: PREOPERATIVE DIAGNOSIS: 1-Lumbar Spondylosis with Facet Arthropathy without myelopathy. 2- Lumber degenerative disc disease. POSTOPERATIVE DIAGNOSIS: 1- Lumbar Spondylosis with Facet Arthropathy without myelopathy. 2- Lumber degenerative disc disease. PROCEDURES : Bilateral Radiofrequency thermocoagulation, L3 , L4 , and L5 medial branch, with fluoroscopic guidance (fluoroscopy images available in the radiology department) ( to denervate the facet joint at bilateral L4-5 ,and L5-S1 levels ). ANESTHESIA: Monitored anesthesia care as per anesthesia department . EBL: Minimal PROCEDURE INDICATION: The patient with low back pain secondary to lumbar facet arthropathy who had more than 50% relief of her pain with previous diagnostic lumbar medial branch block with bupivacaine. PROCEDURE DESCRIPTION / TECHNIQUE: The patient was seen and identified in the preoperative area. Risks, benefits, complications, including but not limited to risk of infection ,bleeding , allergic reactions to the medications and no complete pain releife , and alternatives were discussed with the patient, the patient agreed to proceed with the procedure and signed the consent. IV was started. Vital signs remained stable throughout the procedure. Patient was taken to the OR and time out was completed. The patient was placed in the prone position on the procedure table. The lumber area was prepped and draped in the usual sterile fashion. . Vital signs were closely monitored during the procedure .IV sedation was used during the procedure to decrease patients anxiety. Using AP and then oblique fluoroscopy, the ``eye of the Jhonatan dog aviva esponding to the connection between the superior and transverse articular processes of right L3, L4, and L5 were identified, marked, and localized with 1% lidocaine. Subsequently, a [id number] radiofrequency cannula with a 10- mm active tip was advanced guided by fluoroscopy to each of the``eyes of the Jhonatan dog at right L3, L4, and L5. Each site then underwent sensory testing at 50 Hz and 0 to 1 volt and motor testing at 2.5 Hz and 0 to 3 volt with local stimulation, but no radicular symptoms down the legs. Thereafter each sites underwent radiofrequency thermocoagulation at 80 degrees celsius for 90 seconds after injecting 0.5 ml of PF Ropivacaine 1ml, then after the thermocoagulation done , 1 ml of the block solution containing Depo-Medrol 20 mg and 3 ml of Ropivacaine 0.5% was injected at the right L3 , L4 , and L5 , levels after negative aspiration of CSF and blood and with no paresthesias. Cannulas were retracted while injecting lidocaine 1% until the needle is out. The same procedure was repeated at the level of Left L3, L4, and L5 levels. At the end of the procedure, the skin was cleansed and bandages were applied. COMPLICATIONS: No acute complications. DISPOSITION / PLANS: The patient was placed in a supine position and transferred to the recovery area in a stable condition for observation and was discharged from the recovery room after meeting discharge criteria. Home discharge instructions given to the patient by the staff. The patient was reexamined prior to discharge. The patient will schedule a follow up in the clinic in 2-4 weeks.
[2021-08-12] MEDS ORDERED: IV FLUID CONTINUATION 1,000 ML IV ONE ×2 (08:17)
--- NOTE | 2021-08-12 08:25 | FL ---
EXAMINATION TYPE: FL guided pain mgmt statistic DATE OF EXAM: 08/12/2021 CLINICAL HISTORY: Low back pain. TECHNIQUE: Fluoroscopy. COMPARISON: None. FINDINGS: Fluoroscopic guidance was provided during pain relief procedure performed by Dr. Grover . A total of 18 seconds of fluoroscopic time was utilized during the procedure and 6 spot images are acquired. Images acquired shows needle localization at multiple levels in the lumbar spine. IMPRESSION: As Above.
[2021-08-12 08:34] VITALS: BP 160/77; PULSE 52; RESP 18
== END 2021-08-12 08:46 | disposition home or self-care (01) ==
LOC: ORPAIN 06:43
PROVIDERS: ATTEND Specialist
DX: M51.36 Other intervertebral disc degeneration, lumbar region (principal); M47.816 Spondylosis without myelopathy or radiculopathy, lumbar region; I25.10 Atherosclerotic heart disease of native coronary artery without angina pectoris; F41.8 Other specified anxiety disorders; I12.9 Hypertensive chronic kidney disease with stage 1 through stage 4 chronic kidney disease, or unspecified chronic kidney disease; E07.9 Disorder of thyroid, unspecified; N18.9 Chronic kidney disease, unspecified; E78.5 Hyperlipidemia, unspecified; Z86.718 Personal history of other venous thrombosis and embolism; Z90.49 Acquired absence of other specified parts of digestive tract
CPT/HCPCS: 64635; 64636 ×2; J2250; J1030; J3010; J2795

== ENCOUNTER → 2021-08-29 | Outpatient (CLI) | payer MEDICARE ==
[2021-08-29 10:35] VITALS: BP 149/72; PULSE 73; RESP 18
--- NOTE | 2021-08-29 10:54 | P.PN ---
Subjective Progress Note Date: 08/29/21 Principal diagnosis: A 80 yr old female with a history of severe and chronic mid & low back pain secondary to degenerative disc diseases and spondylosis with facet arthropathy presents today for evaluation status post bilateral RFA of L4-L5 and L5-S1. Patient states she experienced 75% pain relief status post procedure. Pain level is currently at 2 out of 10 in intensity, constant, achy in the mid and lower aspects of the lumbar spine which radiates to the lower extremities, right greater than left. Pain escalates as high as 5 out of 10 in intensity with bending, lifting and twisting. Pain is alleviated with medications, injections, heat, physical therapy in the past, home stretching regimen, repositioning and rest. Interventional pain procedures completed include BL RFA L4-L5, L5-S1 Patient is currently on Tramadol from Dr Benedict and Tylenol OTC Patient denies any side effects of the medication(s), denies excessive drowsiness or sleepiness, denies suicidal ideation and reports that the current pain medication is helping to control the pain and improve activities of daily living. Patient denies any motor or sensory deficits. Patient denies any fever or night sweats, denies any change in the bowel movements or urination. Physical Examination: -Constitutional: Cooperative. Not in acute distress . -HEENT: Neck is supple. No lymphadenopathy. No thyromegaly. Normal thyroid size. Eyes: No ptosis , no icterus, no photophobia. ENT: No auditory deficits. Normal oropharynx. No Thrush. - Respiratory: Chest clear to auscultations bilaterally. No wheezing. No rhonchi. - Cardiovascular: Regular rate and rhythm. S1 / S2 , no S3 , no S4. - Gastrointestinal: Abdomen soft no tenderness. Bowel sounds positive in all four quadrants. No organomegaly. - Genitourinary: Deferred. - Neurologic: Cranial nerve II to XII intact. No focal neurological deficits. - Psychatric: Alert & oriented x 3. Matching mood & appropriate affect. Judgment and insight intact. - Lymphatic: No Lymphadenopathy. - Musculoskeletal: Cervical spine: Muscle bulk/ tone/ strength in the bilateral upper extremities normal. Facet loading test cervical area positive. Thoracic spine: Vertebral body tenderness to palpation over T6-T11 with accompanying paraspinal TTP Lumbar spine: Motor bulk/ tone/ strength lower extremities , thigh and legs : 5/5 Deep tendon reflexes : Normal Knee Jerk. Normal Ankle Jerk . Vertebral body tenderness to palpation over Lumbar Facet Loading Test positive Straight Leg Raise: positive at 30 degrees right side/ left side Gaenslen's Test positive Sacral spine : Severe tenderness over the Sacroiliac joint: right side / left side Range of motion: Flexion of the lumbar spine <60 degrees Range of motion: Extension of the lumbar spine <20 degrees Gaenslen's Test positive Karen test: positive right side / left side Assessment and plan: Chronic low back pain secondary to lumbar degenerative disc disease , lumbar spondylosis with facet arthropathy without myelopathy, Thoracic DDD MRI of the Thoracic spine without contrast re: Thoracic DDD All patient questions answered MAPS reviewed and it was appropriate. I have spent 31 minutes on patient care today. Dr Grover was available by phone for the evaluation of this patient. The time was used to review the medical records including relevant urine studies and Prescription history (MAPs), review of the available imaging, evaluation and examination of the patient, coordination of care with the medical staff and if applicable referring physicians, as well as creation of the medical record Objective - Vital Signs Vital signs: Vital Signs Temp Pulse 73 08/29/21 10:31 Resp 18 08/29/21 10:31 BP 149/72 08/29/21 10:31 Pulse Ox 96 08/29/21 10:31 PQRS Measure Charge Sheet Mode of Arrival: Ambulatory - Pain Location Lower Back Non-Pharmacological Interventions: Heat, Home Exercise, Inactivity, Physical Therapy, Position/Reposition, Stretching Pharmacological Interventions: Block, PRN Medication PQRS Narrative: Smoking Status Never smoker Blood Pressure 149/72 Pain Intensity [Lower Back] 2 Scale Used Numeric (1 - 10) Hx Alcohol Use (MH) No Home Medications: Ambulatory Orders Levothyroxine Sodium [Levoxyl] 100 mcg PO DAILY 11/24/15 Omeprazole [PriLOSEC] 20 mg PO AC-BRKFST 11/24/15 Acetaminophen Tab [Tylenol] 650 mg PO Q4H PRN 12/14/20 Atorvastatin [Lipitor] 40 mg PO HS 12/14/20 Calcium Carbonate [Calcium] 600 mg PO BID 12/14/20 Losartan Potassium 100 mg PO DAILY 12/14/20 hydrALAZINE HCL [Apresoline] 50 mg PO TID 12/14/20 traMADol HCL 25 - 50 mg PO TID PRN 12/14/20 Cyanocobalamin (Vitamin B-12) [Vitamin B-12] 1,000 mcg PO DAILY 12/31/20 Atenolol [Tenormin] 50 mg PO DAILY 06/07/21 Doxylamine Succinate [Unisom] 25 mg PO HS 06/07/21 DULoxetine HCL [Cymbalta] 30 mg PO DAILY 08/10/21 Aspirin [Adult Low Dose Aspirin EC] 81 mg PO HS 08/25/21
== END ==
LOC: PNWHC3 10:00
PROVIDERS: ATTEND Specialist
DX: M51.36 Other intervertebral disc degeneration, lumbar region (principal); M47.816 Spondylosis without myelopathy or radiculopathy, lumbar region; G89.29 Other chronic pain; M51.34 Other intervertebral disc degeneration, thoracic region
CPT/HCPCS: 99211

== ENCOUNTER → 2021-10-19 | Outpatient (CLI) | payer MEDICARE ==
--- NOTE | 2021-10-20 03:12 | MR ---
EXAMINATION TYPE: MR thoracic spine wo con DATE OF EXAM: 10/19/2021 COMPARISON: None HISTORY: Back pain Multiplanar multiecho imaging of the thoracic spine with no contrast. Normal alignment. There is some anterior wedging and depression of the superior endplate of T12 verte bra 25%. Fracture unchanged compared to 11/01/2020 MR scan. There is some mild biconcave deformity of upper thoracic vertebra. There is no thoracic paraspinal mass. No thoracic spinal stenosis. Thoracic spinal cord has fairly normal signal pattern. No edema. No thoracic paraspinal mass. No evidence of a ny significant thoracic disc herniation. Posterior elements are intact. IMPRESSION: Old mild T12 compression fracture. No acute fracture seen. No spinal stenosis. There is some mild bic oncave changes in the upper thoracic spine consistent with some osteomalacia.
== END | disposition home or self-care (01) ==
LOC: RADMRIMAIN 19:49
PROVIDERS: ATTEND Internal Medicine
DX: M54.9 Dorsalgia, unspecified (principal)
CPT/HCPCS: 72146

== ENCOUNTER → 2021-11-01 | Outpatient (CLI) | payer MEDICARE ==
--- NOTE | 2021-11-01 18:41 | US ---
EXAMINATION TYPE: US duplex aorta DATE OF EXAM: 11/01/2021 COMPARISON: NONE CLINICAL HISTORY: 81-year-old female I71.4 ABDOMINAL AORTIC ANEURYSM, WITHOUT RUPTURE. Patient states having AAA. HTN. Nonsmoker. Technique: Multiple sonographic images of the abdominal aorta are obtained. FINDINGS: EXAM MEASUREMENTS: Abdominal Aorta: Proximal: 2.4 x 2.4 cm Mid: 1.5 x 1.7 cm Distal: 1.6 x 1.9 cm Bifurcation: Right- 0.9 x 0.9 cm Left- 0.9 x 0.9 cm Aneurysm visualized at mid level of Aorta = 3.7 x 3.7 and spanning 3.1 cm long. Some crescentic mural -based plaque is present within the aneurysm. IMPRESSION: Mid AAA measuring 3.7 cm.
== END | disposition home or self-care (01) ==
LOC: RADUSWWP 14:35
PROVIDERS: ATTEND Internal Medicine
DX: I71.4 Abdominal aortic aneurysm, without rupture (principal)
CPT/HCPCS: 93979

== ENCOUNTER → 2021-12-26 | Outpatient (CLI) | payer MEDICARE ==
--- NOTE | 2021-12-26 16:33 | BD ---
EXAMINATION TYPE: Axial Bone Density DATE OF EXAM: 12/26/2021 COMPARISON: NONE CLINICAL HISTORY: 81 year old Female. ICD-10 CODE: Z13.820 ENCOUNTER FOR SCREENING FOR OSTEOPOROSIS Height: 61 Weight: 146.8 FRAX RISK QUESTIONS: Alcohol (3 or more units per day): no Family History (Parent hip fracture): no Glucocorticoids (More than 3mos): no (Ex: prednisone, prednisolone, methylprednisolone, dexamethasone, and hydrocortisone). History of Fracture in Adulthood: no Secondary Osteoporosis: 1. Type 1 Diabetes: no 2. Hyperthyroidism: no 3. Menopause before 45: no 4. Malnutrition: no 5. Chronic liver disease: no Rheumatoid Arthritis: no Current Tobacco Use: no RISK FACTORS HISTORY OF: Surgery to Spine/Hip(right/left)/Wrist (right/left): no Family History of Osteoporosis: yes Active: no Diet low in dairy products/other sources of calcium: no Postmenopausal woman: yes Lost more than 2 inches in height since high school: no MEDICATIONS: Thyroid Medications: thyroid How Lon years Additional History: EXAM MEASUREMENTS: Bone mineral densitometry was performed using the [facility]. Bone mineral density as measured about the Lumbar spine is: ----- L1-L4(G/cm2): 0.824 T Score Values are as follows: ----- L1: -3.2 ----- L2: -3.3 ----- L3: -3.3 ----- L4: -2.4 ----- L1-L4: -3.0 Bone mineral density has: decreased -13.9 % since study of: 08.08.2001 Bone mineral density about the R hip (g/cm2): 0.677 Bone mineral density about the L hip (g/cm2): 0.707 T Score values are as follows: -----R Neck: -2.6 -----L Neck: -2.4 -----R Total: -2.9 -----L Total: -2.9 Bone mineral density has: decreased -22.6 % since study of: 08.08.2001 FRAX%s: The graph provided illustrates a 20.0% chance for a major osteoporotic fx and a 7.2% chance f or the hips probability for fx in 10 years time. IMPRESSION: Osteoporosis (T Score less than -2.5). There is increased fracture risk and therapy is usually indicated based on age. Re-Screen 1-2 years. NOTE: T-SCORE=SD OF THE YOUNG ADULT MEAN.
== END | disposition home or self-care (01) ==
LOC: RADBDWWP 07:42
PROVIDERS: ATTEND Internal Medicine
DX: M81.0 Age-related osteoporosis without current pathological fracture (principal)
CPT/HCPCS: 77080

== ENCOUNTER → 2022-01-05 | Outpatient (CLI) | payer MEDICARE ==
[~2022-01-05] MED LIST changes: +DENOSUMAB 60 MG/ML 1 ML SYRINGE SQ NR; -LACTATED RINGERS 1,000 ML IV SCH
[2022-01-05 10:43] VITALS: BP 158/72; PULSE 62; RESP 16; TEMP 98.8
== END ==
LOC: PROCWHC3 09:55
PROVIDERS: ATTEND Internal Medicine
DX: M81.0 Age-related osteoporosis without current pathological fracture (principal)
CPT/HCPCS: 96372; J0897

== ENCOUNTER 2022-01-17 08:15 | Day surgery (SDC) | payer MEDICARE ==
[2022-01-13 14:20] VITALS: BMI 27.6
[~2022-01-17 08:15] MED LIST changes: -DENOSUMAB 60 MG/ML 1 ML SYRINGE SQ NR; +LACTATED RINGERS 1,000 ML IV SCH
[2022-01-17 09:23] VITALS: TEMP 97.6
[2022-01-17] MEDS ORDERED: PROPOFOL 10 MG/ML 20 ML VIAL IV ONE (10:16)
--- NOTE | 2022-01-17 10:24 | P.PCN ---
Date of Procedure: 01/17/22 Procedure(s) Performed: BRIEF HISTORY: Patient is a 81-year-old, pleasant, white female scheduled for an upper endoscopy as a part of evaluation of GERD, intermittent epigastric pain and so throat with constant throat clearing the last 2 months duration. She has been on omeprazole 20 mg daily for several years.. PROCEDURE PERFORMED: Esophagogastroduodenoscopy with biopsy. PREOPERATIVE DIAGNOSIS: Long-standing history of GERD/throat irritation and intermittent dysphagia of 2 months duration. IV sedation per anesthesia. PROCEDURE: After informed consent was obtained, the patient was brought into the endoscopy unit. IV sedation was administered by Anesthesia under continuous monitoring. Initially the Olympus GIF-140 video endoscope was inserted into the mouth. Esophagus intubated without any difficulty. It was gradually advanced into the stomach and duodenum and carefully examined. The bulb and the second part of the duodenum appeared normal. The scope at this time was withdrawn to the stomach, adequately insufflated with air, and upon careful examination, mucosa of the antrum had blackish pigmentation and biopsies were done from this area. The, body, cardia and the fundus appeared normal. The scope was then withdrawn into the esophagus. The GE junction was located at 39 cm from the incisors. Small sliding type hiatal hernia noted. The esophagus appeared normal. There were no erosions or ulcerations seen and biopsies were done from the distal esophagus and the patient tolerated the procedure well. IMPRESSION: 1. Mild antral gastritis. 2. Small hiatal hernia. 3. No evidence of esophagitis or esophageal stricture RECOMMENDATIONS: The findings of this examination were discussed with the patient as well as a family. He'll follow with the biopsy results She was advised to increase omeprazole to 20 mg twice a day Hour before breakfast and dinnertime and follow antireflux measures..
[2022-01-17 10:58] VITALS: BP 185/88; PULSE 78; RESP 18
== END 2022-01-17 10:59 | disposition home or self-care (01) ==
LOC: ORWHC2ENDO 08:15
PROVIDERS: ATTEND Internal Medicine Gastroenterology
DX: K29.50 Unspecified chronic gastritis without bleeding (principal); K21.00 Gastro-esophageal reflux disease with esophagitis, without bleeding; K44.9 Diaphragmatic hernia without obstruction or gangrene; I25.10 Atherosclerotic heart disease of native coronary artery without angina pectoris; I10 Essential (primary) hypertension; E78.5 Hyperlipidemia, unspecified; Z95.5 Presence of coronary angioplasty implant and graft; E07.9 Disorder of thyroid, unspecified; Z79.899 Other long term (current) drug therapy; Z79.890 Hormone replacement therapy; Z98.51 Tubal ligation status; Z79.82 Long term (current) use of aspirin
CPT/HCPCS: 88305; 43239; J2704

== ENCOUNTER → 2022-02-06 | Outpatient (CLI) | payer MEDICARE ==
[2022-02-06 09:42] VITALS: PULSE 56; RESP 18; TEMP 98.2
--- NOTE | 2022-02-06 14:48 | P.PAINPG ---
PQRS Measure Charge Sheet Comment: A 81 yr old female with a history of severe and chronic mid to lower back pain x 1 yr secondary to T12 compression fracture, thoracolumbar degenerative disc diseases and lumbar spondylosis with facet arthropathy without myelopathy presents today for evaluation s/p Thoracic MRI. She believes her thoracic pain is due to osteoporosis of which she is taking pyridium for. Pain level is currently at 4/10 in intensity, constant, achy/ burning in character w shooting towards the BLEs. Pain is provoked as high as 7/10 in intensity by lifting/ activity. Pain is alleviated with walking, heat, massage at home, meds (Cymbalta, Tylenol, Tramadol prn), laying on her L side, repositioning and rest. Interventional pain procedures completed include BL RFA L3-5. BETTY L5-S1 x1. Patient is currently on Cymbalta, Tramadol prn, Tylenol Patient denies any side effects of the medication(s), denies excessive drowsiness or sleepiness, denies suicidal ideation and reports that the current pain medication is helping to control the pain and improve activities of daily living. Patient denies any motor or sensory deficits. Patient denies any fever or night sweats, denies any change in the bowel movements or urination. Physical Examination: -Constitutional: Cooperative. Not in acute distress . - Neurologic: Cranial nerve II to XII intact. No focal neurological deficits. - Psychatric: Alert & oriented x 3. Matching mood & appropriate affect. Judgment and insight intact. - Musculoskeletal: Cervical spine: Muscle bulk/ tone/ strength in the bilateral upper extremities normal Vertebral body tenderness to palpation over Spurling test positive Distraction test positive Facet loading test positive Thoracic spine Muscle bulk / tone/ strength in the bilateral paraspinal muscles normal Vertebral body tender to palpation over T12 Facet loading test positive Lumbar spine: Motor bulk/ tone/ strength lower extremities , thigh and legs : 5/5 Deep tendon reflexes : Normal Knee Jerk. Normal Ankle Jerk . Vertebral body tenderness to palpation over L5 Lumbar Facet Loading Test positive Straight Leg Raise: positive at 30 degrees right side/ left side Gaenslen's Test positive Sacral spine : Severe tenderness over the Sacroiliac joint: right side / left side Range of motion: Flexion of the lumbar spine <60 degrees Range of motion: Extension of the lumbar spine <20 degrees Gaenslen's Test positive Jeremiah's Test positive Karen test: positive right side / left side Thigh Thrust Test Sacral Thrust Test Imaging: MRI without contrast of the Thoracic spine from October 2021 reviewed Assessment and plan: Chronic mid to low back pain secondary to lumbar degenerative disc disease , lumbar spondylosis with facet arthropathy without myelopathy Recommendation of follow up with Dr Taylor to explore additional treatment options. We have tried BETTY L5-S1 and RFA L3-5 (which was ineffective in treating pain). All patient questions answered MAPS reviewed and it was appropriate. I have spent less than 30 minutes on patient care today. Dr Grover was avai lable by phone for the evaluation of this patient. The time was used to review the medical records including relevant urine studies and Prescription history (MAPs), review of the available imaging, evaluation and examination of the patient, coordination of care with the medical staff and if applicable referring physicians, as well as creation of the medical record PQRS Narrative: Smoking Status Never smoker Hx Alcohol Use (MH) No Home Medications: Ambulatory Orders Levothyroxine Sodium [Levoxyl] 100 mcg PO DAILY 11/24/15 Omeprazole [PriLOSEC] 20 mg PO [id number] 11/24/15 Acetaminophen Tab [Tylenol] 650 mg PO Q4H PRN 12/14/20 Atorvastatin [Lipitor] 40 mg PO HS 12/14/20 Losartan Potassium 100 mg PO DAILY 12/14/20 hydrALAZINE HCL [Apresoline] 50 mg PO TID 12/14/20 traMADol HCL 50 mg PO TID PRN 12/14/20 Cyanocobalamin (Vitamin B-12) [Vitamin B-12] 1,000 mcg PO DAILY 12/31/20 Doxylamine Succinate [Unisom] 25 mg PO HS 06/07/21 atenoloL [Tenormin] 50 mg PO DAILY 06/07/21 DULoxetine HCL [Cymbalta] 30 mg PO DAILY 08/10/21 Aspirin [Adult Low Dose Aspirin EC] 81 mg PO HS 08/25/21 Calcium Carbonate/Vitamin D3 [Calcium 600-Vit D3 10 mcg (400 Iu)] 1 each PO TID 01/13/22 Controlled Substance Measures - Controlled Substance Measures Is patient prescribed a controlled substance at discharge?: No
== END ==
LOC: PNWHC3 07:13
PROVIDERS: ATTEND Anesthesiology
DX: M51.36 Other intervertebral disc degeneration, lumbar region (principal); M47.816 Spondylosis without myelopathy or radiculopathy, lumbar region; G89.29 Other chronic pain
CPT/HCPCS: 99211

== ENCOUNTER → 2022-03-10 | Outpatient (CLI) | payer MEDICARE ==
--- NOTE | 2022-03-10 23:23 | CT ---
EXAMINATION TYPE: CT sinus wo con DATE OF EXAM: 03/10/2022 COMPARISON: NONE HISTORY: Chronic sinusitis. CT DLP: 814 mGycm. Automated Exposure Control for Dose Reduction was Utilized. TECHNIQUE: CT scan of the sinuses is performed without contrast, axial images are obtained, coronal r eformatted images are also reviewed. FINDINGS: The paranasal sinuses including the frontal, ethmoid, sphenoid, and maxillary sinuses bila terally are well-aerated without abnormal opacification or suspicious opacification. The ostiomeatal complex is patent bilaterally on coronal image 27. Visualized portion of mastoid air cells show no abnormal opacification. The globes are intact bilate rally. Visualized brain parenchyma unremarkable. IMPRESSION: The sinuses are clear and the ostiomeatal complex is patent bilaterally.
== END | disposition home or self-care (01) ==
LOC: RADCTMAIN 16:40
PROVIDERS: ATTEND Otolaryngology
DX: J32.9 Chronic sinusitis, unspecified (principal)
CPT/HCPCS: 70486

== ENCOUNTER → 2022-05-03 | Outpatient (CLI) | payer MEDICARE | END | disposition home or self-care (01) | LOC: LABPAT 09:12 | PROVIDERS: ATTEND Orthopaedic Surgery | DX: Z01.812 Encounter for preprocedural laboratory examination (principal); Z22.322 Carrier or suspected carrier of Methicillin resistant Staphylococcus aureus; M47.816 Spondylosis without myelopathy or radiculopathy, lumbar region; M43.16 Spondylolisthesis, lumbar region | CPT/HCPCS: 87070 ==

== ENCOUNTER 2022-05-09 05:37 | Observation (INO) | payer MEDICARE ==
[2022-05-05 12:43] VITALS: BMI 26.4
--- NOTE | 2022-05-08 16:10 | P.HPOR ---
History of Present Illness H&P Date: 05/03/22 .D:Date: 05/03/22 : 08:46am .T:Title: [facility] History and Physical Date of :[birth year] Age: 81 year Height: 5'2" Weight: 165 lbs BP:121/64 BMI: 30.18 kg/m2 Occupation: retired VAS: 2 CHIEF COMPLAINT: recheck low back pain DOI:Chronic DOS: None Duration of current treatment regiment: >1 year HISTORY: Xrays No new xrays taken in office Trauma or injury No Work-Related No Pain description dull, aching, burning, sharp. Location diffuse Patient notes that their pain radiates to bilateral lower extremities Activity Modification yes Hand Dominance right TREATMENTS COMPLETED: 6 weeks of PT completed? Month and Year of last PT date? 2020 Yes How many sessions? 12 Did it help? No Physician recommended home exercise completed? Duration of HEP course: Current yes Patient has trialed the physician directed home exercise program without relief of their symptoms. Medications yes List: Tramadol without relief. Pt is currently taking ASA Alternative interventions Chiropractic: No Massage therapy: No R.I.C.E: yes heat/ice without relief. Brace: No Injections Yes x2 lumbar BETTY (01/04/21, 02/08/21), 1 facet ainsley (04/29/21), 2 lumbar RFA (06/10/21, 08/12/21) How many? as above Did they help? No RFA: yes , see above SUBJECTIVE: Ms. Marrero returns to the office for a recheck of their low back pain and for a pre-operative review of the planned lumbar (L4-S1) right side MIS Transforaminal Lumbar Interbody Fusion. Patient reports no improvements to her symptoms since the time of the last appointment. The patient continues to complain low back pain radiating into the bilateral lower extremities (R>L) with numbness and tingling through the L4-S1 dermatomal distribution. Furthermore the patient continues to complain of bilateral lower extremity weakness that is effecting her gait stability. Overall the patient has seen a progressive increase in symptoms since their onset. Ms. Marrero symptoms are exacerbated with standing, ambulation, weightlifting, and any flexion/extension/twisting of the back, due to this they notes that it is increasingly difficult for Ms. Marrero to complete many of their daily tasks. Patient is having moderate sleep disturbances as well due to their ongoing pain and associated symptoms. Regarding treatments, the patient has previously trialed all abovementioned treatment modalities without relief of her symptoms. Patient denies trialing any other modalities at this time. For their symptoms, the patient has been taking Tramadol without relief. Otherwise the patient denies any f/c/sob/cp, no bladder or bowel retention/incontinence, no perineal numbness/tingling, and ambulates independently. HISTORY: Ms. Marrero last returned to the office on 02/24/22 for a recheck of their low back pain. Since the time of the last appointment the patient reports increasing diffuse lumbar pain into the bilateral lower extremities with associated diffuse numbness and tingling (R>L). Overall the patient has seen a progressive increase in symptoms since their onset. Ms. Marrero symptoms are exacerbated with most ADL's involving bending/lifting/twisting, due to this they notes that it is increasingly difficult for Ms. Marrero to complete many of their daily tasks. Patient is having severe sleep disturbances as well due to their ongoing pain and associated symptoms. Regarding treatments, the patient has previously trialed all abovementiond modalities without relief of her symptoms. Patient denies trialing any other modalities at this time. Otherwise the patient denies any f/c/sob/cp, no incision concerns, no bladder or bowel retention/incontinence, no perineal numbness/tingling, and ambulates independently. Ms. Marrero was last seen on 01/20/2021 regarding her low back. To review, at the time of the last appointment (12/09/2020) she was given a script for a intralaminar injection between L4-L5, a Medrol dose ricardo, trial of Gabapentin, along with home exercise/health maintenance, and supplements programs. With this she states that she has made good progress. Overall since getting the injection the patient states that her pain has improved moderately. She notes continued pain about the low back but this is vastly improved since the previous appointment. Regarding her pain she does not some mild numbness and tingling in the bilateral lower distal extremities but has no other concerns. At this time she is able to complete many of her daily functions without significant distress. Casandra is happy with the current course of treatment. Of note the patient presents to the office without the use of any ambulatory aides. The patient was previously seen on 12/09/2020 regarding her lower back pain, which she notes was onset in 2017 while she was lifting the corner of a couch. Since this incident she has had ongoing lower pain that has not been relieved with physical therapy. This lower back pain, she notes, radiates down into her right lower extremity. The patient stated that in addition to this pain she also has back spasms which she is taking Tramadol for. She denied having any injections done for her lower back pain. Additionally, she had taken Gabapentin for this pain as well but the patient reports that this did not help either. Overall the pain had limited her movement. However she was not currently using any ambulatory aides for her back pain. Ms. Marrero was otherwise doing well The patients' past social, medical, family, surgical history, as well as review of systems, have been reviewed. Please refer to the Neurosurgery History and Physical form that has been scanned in to our electronic medical record system. 16 points review of systems completed and as stated in HPI, all other systems reviewed are negative. Social History: Reviewed, see appropriate section of the chart for details. P3 Social History: Smoking: never a smoker P3 Alcohol: none P3 Family History: Reviewed, see appropriate section of the chart for details. P2 Past Medical History: Reviewed, see appropriate section of the chart for details. P1 Current Medications: Rx: atenoloL 50 mg tablet Ref: 0 Rx: atorvastatin 40 mg tablet Ref: 0 Rx: hydrALAZINE 25 mg tablet Ref: 0 Rx: levothyroxine 100 mcg capsule Ref: 0 Rx: PriLOSEC Ref: 0 Rx: traMADol 50 mg tablet Ref: 0 Rx: aspirin 81 mg tablet,delayed release Ref: 0 Rx: B12 5,000 mcg-100 mcg sublingual lozenge Ref: 0 Rx: Calcium 600 mg calcium (1,500 mg) tablet Ref: 0 Rx: DULoxetine 30 mg capsule,delayed release Ref: 0 Rx: losartan 100 mg tablet Ref: 0 Rx: Tylenol Extra Strength 500 mg tablet Ref: 0 PHYSICAL EXAMINATION: General: Awake, alert, appropriate for age, in no acute distress. HEENT: No unusual neck masses around region of lateral neck triangle, thyroid, supraclavicular groove Heart: Regular rate and rhythm, normal S1, S2 and no murmur/gallop. Lungs: Clear to auscultation bilaterally with no use of accessory muscles. Extremities: Skin warm and dry without acute lesions, coloration, temperature, skin intact, no tenderness or erythema Integument: Hairy patches: ABSENT Dorsal skin dimples: ABSENT Cafe au lait spots: ABSENT Surgical incisions: NONE Palpation: Please see Pain drawing on Intake sheet for further detail. Midline spinal tenderness: No E6 Cervical Tenderness: No E6 Paralumbar tenderness: No E6 Parathoracic tenderness: No E6 Buttocks tenderness: No E6 Sacroiliac Tenderness: No POSTURAL and MUSCULO-SKELETAL EVALUATION: Coronal Balance: NEUTRAL Recumbent testing: Patient is able to lay flat on back Sagittal Balance: NEUTRAL Shoulder Profile: LEVEL Pelvic Girdle: LEVEL Neck ROM: UNRESTRICTED Lumbar ROM: RESTRICTED Shoulder ROM: Symmetrical Hip ROM: Symmetrical Knee ROM: Symmetrical Hands: Normal appearance, symmetrical Feet: Normal appearance, Symmetrical VASCULAR STATUS : LEFT RIGHT Wrist Pulses INTACT INTACT Pedal Pulses (Dors. pedis & post.tibialis) INTACT INTACT Color NORMAL NORMAL Edema Absent Absent NEUROLOGIC EXAMINATION: Mental Status:Awake and alert, fully oriented, with normal attention, concentration and memory, and fluent, appropriate speech. Cranial Nerves: I: Olfactory not tested. II: Visual acuity normal, no visual field deficit noted with confrontation. III,IV: Normal pupillary reflexes & intact extraocular movements without nystagmus. V,: Intact symmetrical facial sensation. VII: Intact symmetrical facial motor movement VIII: Hearing intact. IX,X: Intact gag, swallow, & normal voice. XI: Sternocleidomastoid, trapezius function intact. XII: Tongue midline with normal movements. L'hermitte's Sign: Negative / absent Spurling'Sign: Absent bilaterally. Cubital percussion test: Absent bilaterally. Mcwilliams-Tinel sign - Carpal region: Absent bilaterally. Straight Leg Raising: Positive right side Crossed straight leg raise: negative O8 MOTOR EXAM (0-5/5, N/T) UPPER EXTREMITY Shoulder Abduction Biceps Triceps Wrist Extension Hand Intr insics Pneumatic Tester Right 5/5 5/5 5/5 5/5 5/5 5/5 Left 5/5 5/5 5/5 5/5 5/5 5/5 LOWER EXTREMITY Hip Flexion Knee Extension Knee Flexion DF PF EHL FHL Right 5/5 5/5 5/5 4/5 4/5 4/5 4/5 Left 5/5 5/5 5/5 4/5 4/5 4/5 4/5 REFLEXES(0-4/2, NT)Upper ExtremityLower Extremity Right 2 2 Left 2 2 Pathological Reflexes RIGHT LEFT Mcwilliams's Absent Absent Clonus Absent Absent Babinski Absent Absent # Indicates mechanical impairment Muscle appearance: Symmetrical, without signs of atrophy or dystrophy. Rectal Tone:Deferred Sensory system (0-4, N/T) Test type RU IRVING RL LL Joint-Position 2 2 2 2 Vibration 2 2 2 2 Pain & LT sense 2 2 2 2 Dermatomal Deficit: None None L4-S1 L4-S1 Gait and Functional Evaluation: Ambulatory aids: Independent Romberg's test: Intact bilaterally Toe heel walk / heel-toe walk intact while maintaining satisfactory balance? No bilaterally Squatting/straightening w/o assistance to a min of 60 degree knee flexion? yes Single leg stance: not intact bilaterally Trendelenburg sign negative bilaterally Hand and finger dexterity intact bilaterally? yes Disdiadochokinesis examination negative bilaterally? yes RADIOGRAPHIC STUDIES: XRay multiview 5 views taken on 12/09/20 completed at [facility] was reviewed by Dr. Alvarado and indicates: Spondylosis throught the lumbar spine worse at L4-5 and L5-S1. There are no acute fractures noted. There is a grade I spondylolisthesis at L4-5 which reduces on extension. overall alignment is maintained. AP pelvis shows no fracture or dislocation with congruent pelvis. This echoes the xrays with Grade I spondylolisthesis of L4-5 which is reduced in supine position. There is spondylosis from L4-S1 with L5-S1 being the worse. There are boggy facets at these levels, some facet hypertrophy. There is mild stenosis created by ligamental hypertrophy as well as facet hypertrophy. There is no fracture dislocation or other lesions noted. There are modic changes type II L5-S1 noted. MRI scan without contrastfrom 11/01/2020 at [facility]: images are reviewed with the patient demonstrate spondylosis from L4 5 and L5- S1. There is a grade 1 spondylolisthesis of L4 and L5 which is mobile and nearly reduced under supine film. It does cause bilateral foraminal stenosis as well as central stenosis due to facet hypertrophy ligamental hypertrophy and facet arthropathy at these levels. Again there is moderate to severe central as well as foraminal stenosis L4 through S1 as well there is spondylosis these levels with disc degeneration disc height loss. There are no acute fractures noted. No lesions. IMPRESSION: It was my pleasure to have seen and examined Casandra. I reviewed the patient's clinical syndrome, physical findings, and imaging studies during the appointment today. It is my impression that the patient has a diagnosis of. 1. L4-L5 grade 1 spondylolisthesis 2. L5-S1 spondylosis with stenosis 3. right lower extremity radiculopathy 4. right lower extremity weakness 5. mechanical low back pain I outlined the natural course history without intervention and various interventional options. PLAN: Based on my findings I suggest the following course of action: -Advised patient to continue with supplements, health maintenance, and home exercise programs. Patient expressed understanding and will continue with these modalities. -I discussed treatment options with the patient, including operative and non- operative options, and they have elected to proceed with the following surgical procedure: lumbar (L4-S1) right side MIS Transforaminal Lumbar Interbody Fusion The indications, risks, benefits, and alternatives to surgery were discussed with the patient at length. Specifically (but not limited to) the risks of infection, stiffness, recurrence of symptoms, need for revision surgery, local numbness, neurovascular injury, and blood clots were discussed. The patient's questions were answered. The decision to proceed was made. Consent will be obtained for the procedure. Spine Surgery Risk Review Ms. Marrero is presenting for evaluation of low back pain. It was my pleasure to have seen and examined Ms. Marrero. In our visit today we have had a chance to go over subjective complaints, physical examination findings and treatments including the natural course history without intervention and various interventional options. The patients imaging demonstrates: XRay multiview 5 views taken on 12/09/20 completed at [facility] was reviewed by Dr. Alvarado and indicates: Spondylosis through the lumbar spine worse at L4-5 and L5-S1. There are no acute fractures noted. There is a grade I spondylolisthesis at L4-5 which reduces on extension. overall alignment is maintained. AP pelvis shows no fracture or dislocation with congruent pelvis. This echoes the xrays with Grade I spondylolisthesis of L4-5 which is reduced in supine position. There is spondylosis from L4-S1 with L5-S1 being the worse. There are boggy facets at these levels, some facet hypertrophy. There is mild stenosis created by ligamental hypertrophy as well as facet hypertrophy. There is no fracture dislocation or other lesions noted. There are modic changes type II L5-S1 noted. MRI scan without contrastfrom 11/01/2020 at [facility]: images are reviewed with the patient demonstrate spondylosis from L4 5 and L5- S1. There is a grade 1 spondylolisthesis of L4 and L5 which is mobile and nearly reduced under supine film. It does cause bilateral foraminal stenosis as well as central stenosis due to facet hypertrophy ligamental hypertrophy and facet arthropathy at these levels. Again there is moderate to severe central as well as foraminal stenosis L4 through S1 as well there is spondylosis these levels with disc degeneration disc height loss. There are no acute fractures noted. No lesions. On physical exam, Ms. Marrero demonstrates severely restricted lumbar ROM due to pain radiating into her bilateral lower extremities. Furthermore the patient demonstrates bilateral lower extremity weakness and L4-S1 dermatomal distribution deficits. Patient demonstrates gait disturbance due to her symptoms and is limited with functional testing due to pain. I have explained to the patient that as their condition progresses it will cause further neurological deficits and eventual paralysis. Based on the patients imaging, physical exam, and the rapid progression and disabling nature of their symptoms, at this time I recommend surgery in the form or a: lumbar (L4-S1) right side MIS Transforaminal Lumbar Interbody Fusion. I discussed the risk and benefits of this procedure at length with Ms. Marrero. The patient and her agreed to considered pursuing the procedure abovementioned. Prior to surgery, she should follow up with her PCP (Cardio, ID, IM etc) for clearance. Questions were invited and answered, and the patient wishes to proceed as outlined below. Currently, I am recommendin.lumbar (L4-S1) right side MIS Transforaminal Lumbar Interbody Fusion 2.Follow up with PCP for surgical clearance 3.Review of surgical risks and benefits as well as an educational packet on the proposed surgical procedure. Risks: All surgical procedures come with inherent risks, including those related to positioning, anesthesia, intraoperative findings, and postoperative complications. It is important to understand that surgery does not come with any guarantee of a successful outcome as complications and adverse events are always possible. The patient was given a handout in office today discussing the surgical procedure and risks associated with the intervention, both of which were discussed with the patient. These risks include but are not limited to the following: * Experiencing same, different or even worse symptoms in back, neck, arms, or legs compared to before surgery. Requiring further surgery or other forms of treatment presently or at some time in the future at same or other levels of the intended spine surgery. On an extreme but fortunately relatively rare basis severe complication such as blindness, stroke, heart attack, temporary and/or permanent nerve injury, paralysis, coma, or may occur, sometimes without known explanation. Surgical complications may include but are not limited to risk of infection, fluid accumulation in the surgical dissection site, including a seroma or hematoma, that requires additional surgery, wound drainage, bleeding, new numbness or weakness, vision changes/loss, spinal fluid leakage, non-healing and/or infected incision, headaches, difficulty or inability to swallow, h oarseness, hemopneumothorax, pneumothorax, impotence, retrograde ejaculation, vaginal dryness; injury to nerves, spinal cord, blood vessels, lymphatics or other vital organs (i.e., bowel injury, injury to the great vessels); heterotopic bone formation; complications related to the hardware such as screws, rods, cages including misplaced hardware, device failure, instrumentation at the wrong spine level, hardware fracture/breakage, or hardware loosening; vertebral failure of the spinal column above or below the newly placed hardware; retained surgical instrumentations or devices and the need for further surgery. * Medical risks of the planned spine surgery include but are not limited to generalized Infections to the whole body or local areas outside of the surgical site (sepsis), heart attack, bleeding, anaphylaxis, meningitis, seizure, epilepsy, hearing loss, burn moore, laceration of the head or other areas of the body, bruising, hypersensitivity of the skin, bladder over dist ension; allergic reaction; shoulder injury related to positioning; fat, blood and air clots to other areas of the body like heart, lungs, brain; failure of internal organs such as lungs, kidneys, liver and excessive bleeding. If blood transfusions are necessary, note that transfusions may cause intolerance reactions such as anaphylaxis or other complex reactions. Despite best efforts, the results of spine surgery might not heal in terms of bone, soft tissues such as skin, fascia, ligaments, and joints. Additionally, in order to achieve best possible results, spine surgery may be carried out beyond the initially planned levels and involve decompression, fusion including insertion of hardware at levels other than the original intended area of surgical interest change some portions of the procedure in order to ensure the best possible outcomes. With spine surgery and spinal fusion, there are different off label uses of instrumentation (devices, implants and hardware) as well as biological substances (bone morphogenic proteins, demineralized bone matrix) as well as using extra bone from allograft sources (i.e. cadaver bone) or autograft (iliac crest bone, ribs, or the spine itself). The patient has been given information about these practices and their inherent risks and benefits. Former[facility] is an educational center that serves as a training facility for neurosurgical and orthopedic HEALTH NURSE and Nursing students. Physician assistants are medically trained surgical providers who function in the outpatient, inpatient, and operating room setting under the direct supervision of the attending surgeon. Formerly [facility] has multiple operating rooms with single and overlapping rooms running daily. They currently function under the required guidelines as produced by the [facility] Finance Committee with regards to the overlapping rooms and will continue to comply with changes to this policy as they occur. The requirements include and are complied with as follows: (1) the critical portions of the overlapping rooms will not occur at the same time, (2) the attending physician will be physically present during the critical portions of the procedure and immediately available during the entire case, and (3) a back-up attending is designated should the primary attending not be immediately available. The patient has had a chance to review all the listed information, has been given print outs detailing this information, and has had all his/her questions answered to their satisfaction. It was my pleasure to have seen and examined Ms. Marrero. In our visit today we have had a chance to go over my understanding of our patient's current condition, the natural course history without intervention and various interventional options. Questions were invited and answered, and the patient wishes to proceed as outlined above. I have seen and examined the patient for 25 minutes and we have spent more than 50% of the time in repeat and detailed counseling about the patient's condition, its natural course history with out and as much as can be predicted with surgery and re-review of various surgical treatment options. In conclusion, Ms. Marrero and her spouse requested we proceed with the above suggested surgery and are willing to accept risks and limitations of the suggested surgery as nature of the disease process and our best attempts at treatment for the condition. Thank you again for allowing us to be part of your patient's care. Please don't hesitate to contact me if you have any further questions. Signed and authenticated by: graphic Follow- up: 2 weeks post-op Patient Education: (Informational booklet, instructions, etc) given at today's appointment: Yes .ED:Patient Education: Y Plan at next visit: pre-operative review Medications Reviewed: YES In our visit today Ms. Marrero and I have had a chance to go over my understanding of the patient's current condition, the natural course history without intervention and various interventional options. Questions were invited and answered, and the patient wishes to proceed as outlined above. I will be sure to keep you updated afterMs. Marrero returns here for further follow-up. Thank you again for your referral. Please do not hesitate to contact me if you have any further questions. Signed and authenticated by: Lee Ghotra Penn [facility] [address] [place] [address] This message is confidential, intended only for the named recipient(s) and may contain information that is privileged or exempt from disclosure under applicable law. If you are not the intended recipient(s), you are notified that the dissemination, distribution or copying of this information is strictly prohibited. If you received this message in error, please notify the sender then delete this message. Patient verbalizes understanding of the information discussed. CC: Dr. Hauser # SIGNED BY Lee Taylor ([facility])05/04/2022 11:22AM Past Medical History Past Medical History: Coronary Artery Disease (CAD), Deep Vein Thrombosis (DVT), GERD/Reflux, Hyperlipidemia, Hypertension, Osteoarthritis (OA), Thyroid Disorder Additional Past Medical History / Comment(s): Hx of DVT right leg about 5 yrs ago, hx migraines, vertebra "out of place," low back pain. History of Any Multi-Drug Resistant Organisms: None Reported Past Surgical History: Heart Catheterization With Stent, Tonsillectomy, Tubal Ligation Additional Past Surgical History / Comment(s): BILATERAL CATARACTS, COLONOSCOPY, one cardiac stent, pain procedure. Past Anesthesia/Blood Transfusion Reactions: No Reported Reaction Date of Last Stent Placement:: 2010 Past Psychological History: No Psychological Hx Reported Smoking Status: Never smoker Past Alcohol Use History: None Reported Past Drug Use History: None Reported - Past Family History Mother Family Medical History: No Reported History Medications and Allergies Home Medications Medication Instructions Recorded Confirmed Type Levothyroxine Sodium [Levoxyl] 100 mcg PO QAM 11/24/15 05/05/22 History Omeprazole [PriLOSEC] 20 mg PO BID 11/24/15 05/05/22 History Atorvastatin [Lipitor] 40 mg PO HS 12/14/20 05/05/22 History Losartan Potassium 100 mg PO QAM 12/14/20 05/05/22 History hydrALAZINE HCL [Apresoline] 50 mg PO TID 12/14/20 05/05/22 History traMADol HCL 50 mg PO TID PRN 12/14/20 05/05/22 History Cyanocobalamin (Vitamin B-12) 1,000 mcg PO DAILY 12/31/20 05/05/22 History [Vitamin B-12] Doxylamine Succinate [Unisom] 25 mg PO HS 06/07/21 05/05/22 History atenoloL [Tenormin] 50 mg PO QAM 06/07/21 05/05/22 History DULoxetine HCL [Cymbalta] 30 mg PO QAM 08/10/21 05/05/22 History Aspirin [Adult Low Dose Aspirin EC] 81 mg PO HS 08/25/21 05/05/22 History Calcium Carbonate/Vitamin D3 1 each PO BID 01/13/22 05/05/22 History [Calcium 600-Vit D3 10 mcg (400 Iu)] Acetaminophen Tab [Tylenol Tab] 500 mg PO Q4-6H PRN 05/05/22 05/05/22 History Allergies Allergy/AdvReac Type Severity Reaction Status Date / Time No Known Allergies Allergy Verified 05/05/22 12:19 Physical Examination Osteopathic Statement: *. No significant issues noted on an osteopathic structural exam other than those noted in the History and Physical/Consult.
[~2022-05-09 05:37] MED LIST changes: +ACETAMINOPHEN TAB 500 MG TAB PO PRN; +GABAPENTIN 300 MG CAP PO PRN; -LACTATED RINGERS 1,000 ML IV SCH; +ONDANSETRON 4 MG/2 ML VIAL IVP PRN; +TRANEXAMIC ACID IN NACL,ISO-OS 1,000 MG in SALINE 1 100ML.BAG IVPB PRN
[2022-05-09] MEDS ORDERED: LIDOCAINE 1% (10MG/ML) FOR IV START INTRADERMA PRN (06:13)
[2022-05-09] MEDS ORDERED: ONDANSETRON 4 MG/2 ML VIAL IVP ONE ×2 (06:13→12:12)
[2022-05-09] MEDS ORDERED: DEXAMETHASONE SOD PHOSPHATE 4 MG/ML 1 ML VIAL IV ONE (06:13)
[2022-05-09] MEDS: LACTATED RINGERS 1,000 ML IV SCH ×2 (06:52→06:56)
[2022-05-09] MEDS ORDERED: ceFAZolin 3,000 MG in SODIUM CHLORIDE 0.9% IRRIGATIO 3,000 ML IRRIGATION ONE (08:34)
[2022-05-09] MEDS ORDERED: THROMBIN (BOVINE) 5,000 UNIT VIAL MISCELLANE ONE (08:43)
[2022-05-09] MEDS ORDERED: GELATIN SPONGE,ABSORB (LARGE) 1 EACH SPONGE MISCELLANE ONE (08:43)
[2022-05-09] MEDS ORDERED: LACTATED RINGERS 1,000 ML IV ONE (10:36)
--- NOTE | 2022-05-09 10:47 | XR ---
Intraoperative/procedural fluoroscopic services were provided for L4-S1 fusion. Hardware appears inta ct with appropriate alignment. Total fluoroscopy time is 2.35 minutes with a total of 5 submitted cali ges to PACS. Please see the operative note for further details.
[2022-05-09] MEDS ORDERED: HYDROcodone/APAP 5-325MG 1 EACH TAB PO PRN (10:48)
[2022-05-09] MEDS ORDERED: SENNOSIDES-DOCUSATE SODIUM 1 EACH TAB PO PRN (10:48)
[2022-05-09] MEDS ORDERED: MAG HYDROX/AL HYDROX/SIMETH 30 ML CUP PO PRN (10:48)
[2022-05-09] MEDS ORDERED: MAGNESIUM HYDROXIDE 2,400 MG/10 ML CUP PO PRN (10:48)
[2022-05-09] MEDS ORDERED: ONDANSETRON 4 MG/2 ML VIAL IVP PRN (10:48)
[2022-05-09] MEDS: HYDROmorphone 0.5 MG/0.5 ML SYRINGE IVP PRN ×5 (11:27→23:44)
[2022-05-09] MEDS: ACETAMINOPHEN TAB 325 MG TAB PO SCH ×3 (14:41→23:45)
--- NOTE | 2022-05-09 14:55 | P.OP ---
Date of Procedure: 05/09/22 Preoperative Diagnosis: 1. L4-5 Grade I spondylolisthesis 2. L5-S1 severe spondylosis with foraminal stenosis 3. LE paresthesia and radiculopathy 4. Mechanical LBP Postoperative Diagnosis: 1. L4-5 Grade I spondylolisthesis 2. L5-S1 severe spondylosis with foraminal stenosis 3. LE paresthesia and radiculopathy 4. Mechanical LBP Procedure(s) Performed: 1. L4-5 and L5-S1 posteriolatearl and interbody fusion (96046, 15592) 2. Insertion of biomechanical device ([id number]) 3. Segmental instrumentation L4-S1 (82955) 4. L4-S1 laminectomy, facetectomy and foraminotomy more than that needed for cage placement and for extral dural element decompression (35847, 37886) Use of IONM Use of microscope Implants: -Globus Creo Screw and austyn system -Zivation expandable cages x2 -Autograft, Allograft, iFactor, MagnatOs Anesthesia: JINGA Surgeon: Lee Taylor [employer] Plant Operations Engineer #1: Bj Solorio (Was present and assisted in all aspecrtes of the case from positioning to dressing placement) Estimated Blood Loss (ml): 50 IV fluids (ml): 1,000 Urine output (ml): 250 Pathology: none sent Condition: stable Disposition: PACU Indications for Procedure: Ms. Marrero is presenting for evaluation of low back pain. It was my pleasure to have seen and examined Ms. Marrero. In our visit today we have had a chance to go over subjective complaints, physical examination findings and treatments including the natural course history without intervention and various interventional options. The patients imaging demonstrates: XRay multiview 5 views taken on 12/09/20 completed at [facility] of was reviewed by Dr. Alvarado and indicates: Spondylosis through the lumbar spine worse at L4-5 and L5-S1. There are no acute fractures noted. There is a grade I spondylolisthesis at L4-5 which reduces on extension. overall alignment is maintained. AP pelvis shows no fracture or dislocation with congruent pelvis. This echoes the xrays with Grade I spondylolisthesis of L4-5 which is reduced in supine position. There is spondylosis from L4-S1 with L5-S1 being the worse. There are boggy facets at these levels, some facet hypertrophy. There is mild stenosis created by ligamental hypertrophy as well as facet hypertrophy. There is no fracture dislocation or other lesions noted. There are modic changes type II L5-S1 noted. [facility] are reviewed with the patient demonstrate spondylosis from L4 5 and L5- S1. There is a grade 1 spondylolisthesis of L4 and L5 which is mobile and nearly reduced under supine film. It does cause bilateral foraminal stenosis as well as central stenosis due to facet hypertrophy ligamental hypertrophy and facet arthropathy at these levels. Again there is moderate to severe central as well as foraminal stenosis L4 through S1 as well there is spondylosis these levels with disc degeneration disc height loss. There are no acute fractures noted. No lesions. On physical exam, Ms. Marrero demonstrates severely restricted lumbar ROM due to pain radiating into her bilateral lower extremities. Furthermore the patient demonstrates bilateral lower extremity weakness and L4-S1 dermatomal distribution deficits. Patient demonstrates gait disturbance due to her symptoms and is limited with functional testing due to pain. I have explained to the patient that as their condition progresses it will cause further neurological deficits and eventual paralysis. Based on the patients imaging, physical exam, and the rapid progression and disabling nature of their symptoms, at this time I recommend surgery in the form or a: lumbar (L4-S1) right side MIS Transforaminal Lumbar Interbody Fusion. I discussed the risk and benefits of this procedure at length with Ms. Marrero. The patient and her agreed to considered pursuing the procedure abovementioned. Prior to surgery, she should follow up with her PCP (Cardio, ID, IM etc) for clearance. Questions were invited and answered, and the patient wishes to proceed as outlined below. Currently, I am recommendin.lumbar (L4-S1) right side MIS Transforaminal Lumbar Interbody Fusion Description of Procedure: The patient was seen and examined in the preoperative area. All preoperative protocols were followed. Informed consent was obtained risks and benefits of the procedure were discussed at length. Risks including bleeding infection damage to the surrounding tissue and risk of reoperation were discussed with the patient. Risk of anesthesia up to and including was a discussed with the patient. These are outlined in the risk review. They were willing to accept these risks and all the risks of surgery. The patient was given a weight-based dose of antibiotics in the form of 2 g Ancef. The patient was seen and evaluated by the anesthesia team who deemed them fit for surgery. The site was marked, the patient was willing to proceed with the procedure. The patient was transferred to the operative suite by the Department of anesthesia. They were then drifted off to sleep by the department anesthesia and GETA was performed. The patient tolerated this well. Leggett catheter was placed by nursing staff, a-traumatically. Once confirmation of lines and ventilation the patient was transferred to a prone Shiva table very carefully. All bony prominences including wrists, elbows, axilla, chest, hips, and thighs, and feet were padded very well. Special attention was paid to the genitalia, and these were padded accordingly. SCDs were placed on bilateral lower extremities and were connected. Arms were well padded and placed on arm boards up and out in the 90/90 position. Once in position, again we confirmed good ventilation capabilities and that lines were running appropriately. The patients Lumbar spine was then exposed. 1010s were placed outlining the incision site. Standard alcohol was used to clean the incision site and allowed to dry. C-arm was used to needle localize the pedicles at L4-S1 and bio-urvashi the patient and confirm level for incision which was marked with a skin marker. Operative briefing was performed with all teams and everyone in agreement to proceed. The patient was then prepped and draped in a normal sterile fashion. Timeout was then performed, and all parties agreed with the procedure to be performed. C arm was then used to target pedicles bilaterally at L4-S1. Jamshidi was used and bi-planar fluoroscopy was used to access L4 pedicles. Once accessed wires were placed in their void. This was repeated at L5 and S1 bilaterally. Skin incision was then made along these wires and on the left side, perfect scalpel was used over the wire to create a path and measure screw length at L4-S1. Screws were then placed over wires on the left side. Once screw was at the back of the body wire was removed. The screws were confirmed to be in good position on AP and lateral. We then tested screws and they all tested above 20 mA. Attention was then turned to interbody fusion at L5-S1. Tubular retractor system was placed at the interspace of L5-S1 using biplanar c arm. Once in position and dilated up to 26mm tube it was locked to the bed and confirmed in good position. Microscope was then brought in for visualization. Limited myomectomy was performed and laminectomy, complete facetectomy and foraminotomy performed at L5-S1 using high speed lillie and Kerrison rongure. The ligamentum was removed and dural sac decompressed. Exiting and traversing roots visualized and decompressed. Neural elements were then protected, and disc space accessed with an osteotome. Sequential shaving then done under lateral imaging and complete discectomy performed using kalia, pituitary and curette. Once good bleeding endplates accomplished and good height synagogue with trials, a combination of autograft, allograft and synthetic placed anterior in the disc space. The cage was then selected and impacted into place under lateral imag ing. The cage was then expanded restoring height, lordosis and alignment. The cage was backfilled with bone graft through a funnel. The medical records secretary removed and area inspected. Good cage placement, stable cage and no injuries. Area was irrigated copiously, and meticulous hemostasis achieved. The tubular retractor was then removed under direct visualization. Attention was then turned to interbody fusion at L4-5. Tubular retractor system was placed at the interspace of L4-5 using biplanar c arm. Once in position and dilated up to 26mm tube it was locked to the bed and confirmed in good position. Microscope was then brought in for visualization. Limited myomectomy was performed and laminectomy, complete facetectomy and foraminotomy performed at L4-5 using high speed lillie and Kerrison rongure. The ligamentum was removed and dural sac decompressed. Exiting and traversing roots visualized and decompressed. Neural elements were then protected, and disc space accessed with an osteotome. Sequential shaving then done under lateral imaging and complete discectomy performed using kalia, pituitary and curette. Once good bleeding endplates accomplished and good height synagogue with trials, a combination of autograft, allograft and synthetic placed anterior in the disc space. The cage was then selected and impacted into place under lateral imaging. The cage was then expanded restoring height, lordosis and alignment. The cage was backfilled with bone graft through a funnel. The medical records secretary removed and area inspected. Good cage placement, stable cage and no injuries. Area was irrigated copiously, and meticulous hemostasis achieved. The tubular retractor was then removed under direct visualization. Screws were then selected and placed over the previously placed wires on the right side. This was done in the fashion described above. Screws were then tested, and all tested above 15 mA. Shells were then placed on the tabs. Austyn length was then measured, and rods selected. They were then placed through the MIS tabs, subfascial. These were then locked into place with set screws and final tightened. Austyn holders removed and images taken showing good placement of rods good lordosis and synagogue of height. Tabs were broken off. Wounds were then copiously irrigated with NSS. [place] used for TP decortication and mixture of MagnatOs, allograft and autograft packed posterolateral. Facia was then closed with 0 Vircyl on a Scorpion suture passer for MIS closure. Deep subq closed with 0 Vicryl. Superficial subq closed with 2-0 Vicryl and skin with tej. Wound edges approximated very well. Wound was then cleaned with alcohol and dried. Wounds dressed with Optifoam dressings. The patient was then transferred off the table back to their hospital bed a- traumatically. They were extubated by the department of anesthesia. They were then transferred to PACU in stable condition having tolerated the procedure with no complications.
--- NOTE | 2022-05-09 15:53 | CT ---
EXAMINATION TYPE: CT lumbar spine wo con DATE OF EXAM: 05/09/2022 3:40 PM COMPARISON: None HISTORY: Post op lumbar fusion CT DLP: 612.9 mGycm Automated exposure control for dose reduction was used. Unenhanced CT of the lumbar spine was performed. Bone and soft tissue window settings are submitted as well as coronal and sagittal reconstructions. L1-L2: Normal disc space height. No disc herniation protrusion or central stenosis. No facet joint arthropathy. No evidence for foraminal encroachment. L2-L3: Normal disc space height. No disc herniation protrusion or central stenosis. No facet joint arthropathy. No evidence for foraminal encroachment. L3-L4: Mild degenerative disc space narrowing. Left paracentral disc bulge without left-sided foramin al encroachment. No evidence for central stenosis. L4-L5: Postoperative changes of lumbar fusion. Pedicular screws are in place. Soft tissue foci of air are noted compatible with recent postoperative procedure. Postoperative alignment is within normal l imits. Streak artifact limits evaluation. L5-S1: Postoperative changes of lumbar fusion. Pedicular screws are in place. Soft tissue foci of air are noted compatible with recent postoperative procedure. Postoperative alignment is within normal l imits. Streak artifact limits evaluation. Abdominal aortic aneurysm has been discussed previously. IMPRESSION: Postoperative changes of the lumbar fusion. Postoperative soft tissue air noted. No evidence for absc ess. Intervertebral body spacers are well placed.
--- NOTE | 2022-05-09 16:03 | P.CONS ---
History of Present Illness - Reason for Consult Consult date: 05/09/22 HTN Requesting physician: Lee Taylor - Chief Complaint back pain - History of Present Illness Patient is a 81-year-old female with coronary artery disease status post stent, hypertension, dyslipidemia, and prior DVT who presented to the hospital for elective L4 to S1 decompression with fusion secondary to severe spondylosis with foraminal stenosis and radiculopathy Patient seen and examined at bedside. She is doing well post surgery. She is having some back pain with raidation down her right leg to mid thigh. She denies any lightheadedness, dizziness, nausea, chest pain, shortness of breath. She was in her normal state of health up and back pain prior to surgery. She was not using any assistive devices at home. She lives with her . Pertinent positives and negatives as discussed in HPI, a complete review of systems was performed and all other systems are negative. Vital signs reviewed General: nontoxic, , appears at stated age Derm: warm, dry Head: atraumatic, normocephalic, symmetric Eyes: EOMI, no lid lag, anicteric sclera, pupils equal round reactive to light ENT: Nose and ears atraumatic, no thrush, no pharyngeal erythema Neck: No thyromegaly, no cervical lymphadenopathy, trachea midline, supple Mouth: no lip lesion, mucus membranes moist Cardiovascular: S1S2 reg, no murmur, positive posterior tibial pulse bilateral, no edema, capillary refill less than 2 seconds Lungs: clear to auscultation bilateral, no rhonchi, no rales, no wheeze, no accessory muscle use Abdominal: soft, nontender to palpation, no guarding, no appreciable organomegaly, normal bowel sounds Ext: no gross muscle atrophy, muscle strength 5 out of 5 in bilateral upper extremities, able to wiggle toes on bilateral lower extremities, no contractures Neuro: CN II-XII grossly intact, no focal deficits noted movement in LE limited due to pain. Psych: Alert, oriented, appropriate affect Assessment/Plan: 81 yo F with severe lumbar spondylosis with foraminal stenosis resulting in ridiculopathy s/p 4-S1 decompression wtih fusion. -Postoperative management by Orthopedic spine surgery. Hypertension -Blood pressure mildly elevated after surgery up to 166/79 likely secondary to pain -Resume home hydralazine, atenolol with parameters -Follow blood pressures Dyslipidemia -Resume statin on discharge GERD -Resume home PPI Hypothyroidism -Resume home levothyroxine History of DVT - post procedural, about 5 years ago, was on eliquis has been off for years. If she is in the hospital past tomorrow I would start chemical DVT prophylaxis if okay with orthopedic spine surgery. Coronary artery disease status post stent Thank you for allowing us to participate in the care of this pleasant patient. Do not hesitate to contact us with questions. Someone can be reached from the [facility] [place]Note 2[place] hospitalist group all hours of the day at [phone] or via [employer]. Past Medical History Past Medical History: Coronary Artery Disease (CAD), Deep Vein Thrombosis (DVT), GERD/Reflux, Hyperlipidemia, Hypertension, Osteoarthritis (OA), Thyroid Disorder Additional Past Medical History / Comment(s): Hx of DVT right leg about 5 yrs ago, hx migraines, vertebra "out of place," low back pain. History of Any Multi-Drug Resistant Organisms: None Reported Past Surgical History: Heart Catheterization With Stent, Tonsillectomy, Tubal Ligation Additional Past Surgical History / Comment(s): BILATERAL CATARACTS, COLONOSCOPY, one cardiac stent, pain procedure. Past Anesthesia/Blood Transfusion Reactions: No Reported Reaction Date of Last Stent Placement:: End 2010 Past Psychological History: No Psychological Hx Reported Smoking Status: Never smoker Past Alcohol Use History: None Reported Past Drug Use History: None Reported - Past Family History Mother Family Medical History: No Reported History father Family Medical History: Coronary Artery Disease (CAD) Medications and Allergies Home Medications Medication Instructions Recorded Confirmed Type Levothyroxine Sodium [Levoxyl] 100 mcg PO QAM 11/24/15 05/09/22 History Omeprazole [PriLOSEC] 20 mg PO BID 11/24/15 05/09/22 History Atorvastatin [Lipitor] 40 mg PO HS 12/14/20 05/09/22 History Losartan Potassium 100 mg PO QAM 12/14/20 05/09/22 History hydrALAZINE HCL [Apresoline] 50 mg PO TID 12/14/20 05/09/22 History traMADol HCL 50 mg PO TID PRN 12/14/20 05/09/22 History Cyanocobalamin (Vitamin B-12) 1,000 mcg PO DAILY 12/31/20 05/09/22 History [Vitamin B-12] Doxylamine Succinate [Unisom] 25 mg PO HS 06/07/21 05/09/22 History atenoloL [Tenormin] 50 mg PO QAM 06/07/21 05/09/22 History DULoxetine HCL [Cymbalta] 30 mg PO QAM 08/10/21 05/09/22 History Aspirin [Adult Low Dose Aspirin EC] 81 mg PO HS 08/25/21 05/09/22 History Calcium Carbonate/Vitamin D3 1 each PO BID 01/13/22 05/09/22 History [Calcium 600-Vit D3 10 mcg (400 Iu)] Acetaminophen Tab [Tylenol Tab] 500 mg PO Q4-6H PRN 05/05/22 05/09/22 History Allergies Allergy/AdvReac Type Severity Reaction Status Date / Time No Known Allergies Allergy Verified 05/09/22 06:27 Physical Exam Osteopathic Statement: *. No significant issues noted on an osteopathic structural exam other than those noted in the History and Physical/Consult. Vitals: Vital Signs Temp Pulse Pulse Resp BP Pulse Ox 05/09/22 15:15 97.3 F L 81 20 154/70 91 L 05/09/22 14:13 97.3 F L 81 19 154/70 05/09/22 13:30 78 16 146/63 100 05/09/22 13:00 77 17 153/79 92 L 05/09/22 12:46 69 15 166/79 95 05/09/22 12:32 68 16 163/80 98 05/09/22 12:15 73 16 168/74 100 05/09/22 12:00 62 24 166/94 100 05/09/22 11:45 60 24 187/99 99 05/09/22 11:30 60 24 165/80 100 05/09/22 11:15 60 16 161/80 05/09/22 11:00 61 16 154/93 97 05/09/22 10:48 97 F L 67 16 141/61 98 05/09/22 06:36 97.2 F L 59 L 16 183/83 99 Intake and Output 05/09/22 05/09/22 05/09/22 06:59 14:59 22:59 Intake Total 200 1750 Output Total 400 Balance 200 1350 Intake: IV 200 1750 Output: Urine 350 Estimated Blood Loss 50 Other: Weight 63.4 kg 63.4 kg
[2022-05-09] MEDS: HYDROcodone/APAP 7.5-325MG 1 EACH TAB PO PRN ×2 (16:45→22:54)
[2022-05-09] MEDS: hydrALAZINE HCL 50 MG TAB PO SCH ×2 (16:45→21:24)
[2022-05-09] MEDS ORDERED: CALCIUM CARBONATE 500 MG CHEWABLE PO PRN (18:35)
[2022-05-09] MEDS: GABAPENTIN 100 MG CAP PO SCH (21:24)
[2022-05-09] MEDS: CYCLOBENZAPRINE 5 MG TAB PO PRN (22:54)
[2022-05-10] MEDS: HYDROcodone/APAP 7.5-325MG 1 EACH TAB PO PRN (06:32)
[2022-05-10] MEDS: ACETAMINOPHEN TAB 325 MG TAB PO SCH ×3 (06:32→17:51)
[2022-05-10] MEDS: PANTOPRAZOLE 40 MG TABLET PO SCH (06:33)
[2022-05-10] MEDS: CYCLOBENZAPRINE 5 MG TAB PO PRN (06:33)
[2022-05-10] MEDS: LEVOTHYROXINE 100 MCG TAB PO SCH (06:33)
--- NOTE | 2022-05-10 08:10 | P.PN ---
Subjective Progress Note Date: 05/10/22 Principal diagnosis: L4-5 Grade I spondylolisthesis L5-S1 severe spondylosis with foraminal stenosis LE paresthesia and radiculopathy Mechanical LBP Patient seen and examined this morning. Patient is resting in bed. She states that she was up with physical therapy yesterday and stood at bedside and sat in chair. She states that her pain is not currently managed, medication will be modified. Patient denies numbness healing to bilateral lower extremities. She does report a burning sensation in her right thigh. Surgical dressing is clean dry and intact. We will reassess patient this afternoon for possible discharge. Patient denies any fevers/chills, nausea/vomiting, or chest pain. Objective - Vital Signs Vital signs: Vital Signs Temp 97.5 F L 05/10/22 07:51 Pulse 75 05/10/22 07:51 Resp 17 05/10/22 07:51 BP 156/75 05/10/22 07:51 Pulse Ox 92 L 05/10/22 07:51 FiO2 Intake & Output 05/09/22 05/10/22 05/10/22 18:59 06:59 18:59 Intake Total 1750 Output Total 1000 1300 Balance 750 -1300 Weight 63.4 kg Intake: IV 1750 Output: Urine 950 1300 Estimated Blood Loss 50 Other: Voiding Method Indwelling Catheter - Exam Physical Examination General: The patient is awake and alert, in no acute distress Skin: Skin is warm and dry with no obvious rashes or lesions. Hairy patches absent, no dorsal skin dimples, no cafe au lait spots. Surgical incisions to lumbar region. Eye: Pupils are equal, round and reactive to light, extra-ocular movements are intact; there is normal conjunctiva bilaterally. Neck: The neck is supple, there is no tenderness and ROM intact. Cardiovascular: There is a regular rate and rhythm. No murmur, rub or gallop is appreciated. Respiratory: Lungs are clear to auscultation, respirations are non-labored, breath sounds are equal. Gastrointestinal: Soft, non-distended, non-tender abdomen. Back: There is no tenderness to palpation in the midline, paralumbar, parathoracic or buttocks region. There is no obvious deformity . Musculoskeletal: ROM limited secondary to pain and stiffness from surgical procedure. Muscle strength in all major muscle groups of bilateral upper extremities 5/5, bilateral lower extremities 4/5. Neurological: CN 2-12 intact. There are no obvious motor or sensory deficits. Movement and coordination equal and intact. Sensory exam to light touch intact C5-T1 and intact from L2-S1. Reflexes 2/4 in bilateral upper and lower extremities. Negative Hoffmans, babinski, and clonus signs. Psychiatric: Cooperative, appropriate mood & affect, normal judgment. Assessment and Plan Assessment: Post-Op day 1: Minimally Invasive TLIF L4-S1 Plan: -Appreciate communications consultant and team management. -Activity: Ambulate QID, OOB all meals, up and about, limit lifting bending twisting to less than 5 lbs. Use walker or cane if needed for stability. -Daily PT/OT, increase ambulation strength and balance. -Brace when up and about, not needed in bed or chair -Pain control: Adequate at this time -Meds: reviewed -GI ppx: senna, Miralax -DVT PPX: Heparin -Hygiene: Shower today. Maintain dressing clean and dry. Meticulous cleaning after BMs away from the incision site -Encourage IS 10x/hr -Dispo: Anticipate discharge home later today with homecare *I reviewed and discussed this case with my attending Dr. Taylor, whom has reviewed this chart and films and is in agreement with assessment and plan of care as outlined above. I have personally seen and examined the patient, performed the documentation and the assessment and plan as written. Number of minutes spent on the visit: 20m.
[2022-05-10] MEDS: GABAPENTIN 100 MG CAP PO SCH ×2 (08:20→21:41)
[2022-05-10] MEDS: atenoloL 50 MG TAB PO SCH (08:20)
[2022-05-10] MEDS: hydrALAZINE HCL 50 MG TAB PO SCH ×3 (08:20→21:41)
[2022-05-10] MEDS: LOSARTAN 50 MG TAB PO SCH (08:20)
[2022-05-10] MEDS: DULoxetine HCL 30 MG CAPSULE.DR PO SCH (08:20)
[2022-05-10] MEDS: HYDROmorphone 0.5 MG/0.5 ML SYRINGE IVP PRN ×2 (08:22→11:53)
[2022-05-10] MEDS: CYCLOBENZAPRINE 5 MG TAB PO SCH ×3 (08:27→21:41)
[2022-05-10 10:25] LABS: HCT 35.4 % (37.2-46.3); HGB 11.6 g/dL (12.0-15.0); MCH 31.1 pg (27.0-32.0); MCHC 32.8 g/dL (32.0-37.0); MCV 94.9 fL (80.0-97.0); Mean Platelet Volume 9.2 fL (9.5-12.2); NRBC Per 100 WBC 0 /100 WBCS (0.0-0.0); Platelet Count 172 X 10*3/uL (140-440); RBC 3.73 X 10*6/uL (4.10-5.20); RDW 13.2 % (11.5-14.5); WBC 13.72 X 10*3/uL (4.50-10.00)
[2022-05-10] MEDS: HYDROcodone/APAP 7.5-325MG 1 EACH TAB PO SCH ×3 (11:01→21:42)
--- NOTE | 2022-05-10 11:54 | P.PN ---
Subjective Progress Note Date: 05/10/22 Pt is slowly improving. PT recommends ongoing monitoring for unsteady gait. Gen: awake, alert HEENT: normocephalic, atraumatic, good hearing acuity, moist mucous membranes Resp: good air exchange, breathing comfortably with no accessory muscle use CVS: good distal perfusion x 4, GI: soft, NTTP, ND : no SPT, no CVAT, pinzon catheter not present MSK: no pitting edema, no clubbing Neuro: non-focal, moving all extremities Psych: cooperative, euthymic mood Assessment/plan: 81 yo F with severe lumbar spondylosis with foraminal stenosis resulting in ridiculopathy s/p 4-S1 decompression wtih fusion. -Postoperative management by Orthopedic spine surgery. Hypertension -Blood pressure mildly elevated after surgery up to 166/79 likely secondary to pain -Resume home hydralazine, atenolol with parameters -Follow blood pressures Dyslipidemia -Resume statin on discharge GERD -Resume home PPI Hypothyroidism -Resume home levothyroxine History of DVT - post procedural, about 5 years ago, was on eliquis has been off for years. If she is in the hospital past tomorrow I would start chemical DVT prophylaxis if okay with orthopedic spine surgery. Coronary artery disease status post stent Thank you for allowing us to participate in the care of this pleasant patient. Do not hesitate to contact us with questions. Someone can be reached from the [facility] hospitalist group all hours of the day at [phone] or via perfect serve. Objective - Vital Signs Vital signs: Vital Signs Temp 97.5 F L 05/10/22 07:51 Pulse 75 05/10/22 07:51 Resp 17 05/10/22 07:51 BP 156/75 05/10/22 07:51 Pulse Ox 92 L 05/10/22 07:51 FiO2 Intake & Output 05/09/22 05/10/22 05/10/22 18:59 06:59 18:59 Intake Total 1750 Output Total 1000 1300 Balance 750 -1300 Weight 63.4 kg Intake: IV 1750 Output: Urine 950 1300 Estimated Blood Loss 50 Other: Voiding Method Indwelling Catheter Indwelling Catheter - Labs CBC & Chem 7: 05/10/22 07:58 Labs: Abnormal Lab Results - Last 24 Hours (Table) 05/10/22 Range/Units 07:58 WBC 13.72 H (4.50-10.00) X 10*3/uL RBC 3.73 L (4.10-5.20) X 10*6/uL Hgb 11.6 L (12.0-15.0) g/dL Hct 35.4 L (37.2-46.3) % MPV 9.2 L (9.5-12.2) fL
[2022-05-10 12:08] LABS: Basophils # (A) 0.02 X 10*3/uL (0.00-0.10); Basophils % (A) 0.1 %; Eosinophils # (A) 0 X 10*3/uL (0.04-0.35); Eosinophils % (A) 0 %; Immature Grans, Automated 0.4 %; Lymphocytes # (A) 1.05 X 10*3/uL (0.90-5.00); Lymphocytes % (A) 7.7 %; Monocytes # (A) 1.61 X 10*3/uL (0.20-1.00); Monocytes % (A) 11.7 %; Neutrophils # (A) 10.99 X 10*3/uL (1.80-7.70); Neutrophils % (A) 80.1 %
[2022-05-10] MEDS: traMADol 50 MG TAB PO PRN ×2 (13:44→18:52)
[2022-05-10 17:50] LABS: African American GFR (CKD) 49.8 (60.0-200.0); Anion Gap 12.8 mmol/L (10.00-18.00); BUN/Creat Ratio 18.33 Ratio (12.00-20.00); Calcium 9.3 mg/dL (8.7-10.3); Carbon Dioxide 22.2 mmol/L (20.0-27.5); Non-African American GFR(CKD) 42.9 (60.0-200.0); Potassium 4.7 mmol/L (3.5-5.5)
[2022-05-11] MEDS: HYDROcodone/APAP 7.5-325MG 1 EACH TAB PO SCH ×4 (01:00→11:28)
[2022-05-11] MEDS: ACETAMINOPHEN TAB 325 MG TAB PO SCH ×3 (01:02→11:29)
[2022-05-11] MEDS: LEVOTHYROXINE 100 MCG TAB PO SCH (06:22)
[2022-05-11] MEDS ORDERED: LIDOCAINE 2% INJ 20 MG/ML (2 ML VIAL) ONE (07:32)
[2022-05-11] MEDS ORDERED: SUCCINYLCHOLINE CHLORIDE 200 MG/10 ML VIAL IV ONE (07:32)
[2022-05-11] MEDS ORDERED: fentaNYL (PF) 50 MCG/ML 2 ML AMP ONE (07:32)
[2022-05-11] MEDS ORDERED: MIDAZOLAM 2 MG/2 ML VIAL ONE (07:32)
[2022-05-11] MEDS ORDERED: HYDROmorphone (PF) 1 MG/ML ONE (07:32)
[2022-05-11] MEDS ORDERED: ePHEDrine 50 MG/ML 1 ML VIAL ONE (07:32)
[2022-05-11] MEDS ORDERED: PROPOFOL 10 MG/ML 20 ML VIAL IV ONE (07:32)
[2022-05-11] MEDS ORDERED: TRANEXAMIC ACID IN NACL,ISO-OS 1,000 MG/100 ML BAG ONE (07:32)
[2022-05-11] MEDS: DULoxetine HCL 30 MG CAPSULE.DR PO SCH (08:15)
[2022-05-11] MEDS: PANTOPRAZOLE 40 MG TABLET PO SCH (08:15)
[2022-05-11] MEDS: GABAPENTIN 100 MG CAP PO SCH (08:17)
[2022-05-11] MEDS: CYCLOBENZAPRINE 5 MG TAB PO SCH (08:17)
[2022-05-11] MEDS: atenoloL 50 MG TAB PO SCH (08:18)
--- NOTE | 2022-05-11 08:34 | P.PN ---
Subjective Progress Note Date: 05/11/22 Principal diagnosis: L4-5 Grade I spondylolisthesis L5-S1 severe spondylosis with foraminal stenosis LE paresthesia and radiculopathy Mechanical LBP Patient seen and examined this morning. Patient is resting in bed. Awaiting delivery for LSO brace. Please encourage patient to continue to increase her physical activity as tolerated. She may shower this morning prior to discharge. Patient denies numbness healing to bilateral lower extremities. Surgical dressing is clean dry and intact. Patient denies any fevers/chills, nausea/vomiting, or chest pain. Objective - Vital Signs Vital signs: Vital Signs Temp 98.9 F 05/11/22 00:53 Pulse 73 05/11/22 00:53 Resp 18 05/11/22 00:53 BP 117/67 05/11/22 00:53 Pulse Ox 95 05/10/22 20:00 FiO2 Intake & Output 05/10/22 05/11/22 05/11/22 18:59 06:59 18:59 Other: Voiding Method Indwelling Catheter # Voids 2 1 - Exam Physical Examination General: The patient is awake and alert, in no acute distress Skin: Skin is warm and dry with no obvious rashes or lesions. Hairy patches absent, no dorsal skin dimples, no cafe au lait spots. Surgical incisions to lumbar region. Eye: Pupils are equal, round and reactive to light, extra-ocular movements are intact; there is normal conjunctiva bilaterally. Neck: The neck is supple, there is no tenderness and ROM intact. Cardiovascular: There is a regular rate and rhythm. No murmur, rub or gallop is appreciated. Respiratory: Lungs are clear to auscultation, respirations are non-labored, breath sounds are equal. Gastrointestinal: Soft, non-distended, non-tender abdomen. Back: There is no tenderness to palpation in the midline, paralumbar, parathoracic or buttocks region. There is no obvious deformity . Musculoskeletal: ROM limited secondary to pain and stiffness from surgical procedure. Muscle strength in all major muscle groups of bilateral upper extremities 5/5, bilateral lower extremities 4/5. Neurological: CN 2-12 intact. There are no obvious motor or sensory deficits. Movement and coordination equal and intact. Sensory exam to light touch intact C5-T1 and intact from L2-S1. Reflexes 2/4 in bilateral upper and lower extremities. Negative Hoffmans, babinski, and clonus signs. Psychiatric: Cooperative, appropriate mood & affect, normal judgment. - Labs CBC & Chem 7: 05/10/22 07:58 05/10/22 07:58 Labs: Abnormal Lab Results - Last 24 Hours (Table) 05/10/22 05/10/22 Range/Units 07:58 07:58 WBC 13.72 H (4.50-10.00) X 10*3/uL RBC 3.73 L (4.10-5.20) X 10*6/uL Hgb 11.6 L (12.0-15.0) g/dL Hct 35.4 L (37.2-46.3) % MPV 9.2 L (9.5-12.2) fL Immature Gran # 0.05 H (0.00-0.04) X 10*3/uL Neutrophils # 10.99 H (1.80-7.70) X 10*3/uL Monocytes # 1.61 H (0.20-1.00) X 10*3/uL Eosinophils # 0 L (0.04-0.35) X 10*3/uL Est GFR (CKD-EPI)AfAm 49.8 L (60.0-200.0) Est GFR (CKD-EPI)NonAf 42.9 L (60.0-200.0) Assessment and Plan Assessment: Post-Op day 2: Minimally Invasive TLIF L4-S1 Plan: -Appreciate mergers and acquisitions consultant and team management. -Activity: Ambulate QID, OOB all meals, up and about, limit lifting bending t wisting to less than 5 lbs. Use walker or cane if needed for stability. -Daily PT/OT, increase ambulation strength and balance. -Brace when up and about, not needed in bed or chair -Pain control: Adequate at this time -Meds: reviewed -GI ppx: senna, Miralax -DVT PPX: Heparin -Hygiene: Shower today. Maintain dressing clean and dry. Meticulous cleaning after BMs away from the incision site -Encourage IS 10x/hr -Dispo: Anticipate discharge home today with homecare *I reviewed and discussed this case with my attending Dr. Taylor, whom has reviewed this chart and films and is in agreement with assessment and plan of care as outlined above. I have personally seen and examined the patient, performed the documentation and the assessment and plan as written. Number of minutes spent on the visit: 20m.
[2022-05-11 09:06] VITALS: RESP 16; TEMP 97.8
[2022-05-11 09:24] VITALS: BP 135/76; PULSE 80
[2022-05-11] MEDS: LOSARTAN 50 MG TAB PO SCH (09:28)
[2022-05-11] MEDS: traMADol 50 MG TAB PO PRN (09:28)
[2022-05-11] MEDS: hydrALAZINE HCL 50 MG TAB PO SCH (09:28)
[2022-05-11] MEDS: LACTATED RINGERS 1,000 ML IV SCH (10:30)
--- NOTE | 2022-05-11 11:39 | P.PN ---
Subjective Progress Note Date: 05/11/22 Pt is slowly improving. Medically cleared for discharge. Gen: awake, alert HEENT: normocephalic, atraumatic, good hearing acuity, moist mucous membranes Resp: good air exchange, breathing comfortably with no accessory muscle use CVS: good distal perfusion x 4, GI: soft, NTTP, ND : no SPT, no CVAT, pinzon catheter not present MSK: no pitting edema, no clubbing Neuro: non-focal, moving all extremities Psych: cooperative, euthymic mood Assessment/plan: 81 yo F with severe lumbar spondylosis with foraminal stenosis resulting in ridiculopathy s/p 4-S1 decompression wtih fusion. -Postoperative management by Orthopedic spine surgery. Hypertension -Blood pressure mildly elevated after surgery up to 166/79 likely secondary to pain -Resume home hydralazine, atenolol with parameters -Follow blood pressures Dyslipidemia -Resume statin on discharge GERD -Resume home PPI Hypothyroidism -Resume home levothyroxine History of DVT - post procedural, about 5 years ago, was on eliquis has been off for years. If she is in the hospital past tomorrow I would start chemical DVT prophylaxis if okay with orthopedic spine surgery. Coronary artery disease status post stent Thank you for allowing us to participate in the care of this pleasant patient. Do not hesitate to contact us with questions. Someone can be reached from the [facility] hospitalist group all hours of the day at [phone] or via [employer] serve. Objective - Vital Signs Vital signs: Vital Signs Temp 97.8 F 05/11/22 08:00 Pulse 80 05/11/22 09:20 Resp 16 05/11/22 08:00 BP 135/76 05/11/22 09:20 Pulse Ox 99 05/11/22 10:20 FiO2 Intake & Output 05/10/22 05/11/22 05/11/22 18:59 06:59 18:59 Intake Total 360 Balance 360 Intake: Oral 360 Other: Voiding Method Indwelling Catheter # Voids 2 1 2 - Labs CBC & Chem 7: 05/10/22 07:58 05/10/22 07:58 Labs: Abnormal Lab Results - Last 24 Hours (Table) 05/10/22 05/10/22 Range/Units 07:58 07:58 Immature Gran # 0.05 H (0.00-0.04) X 10*3/uL Neutrophils # 10.99 H (1.80-7.70) X 10*3/uL Monocytes # 1.61 H (0.20-1.00) X 10*3/uL Eosinophils # 0 L (0.04-0.35) X 10*3/uL Est GFR (CKD-EPI)AfAm 49.8 L (60.0-200.0) Est GFR (CKD-EPI)NonAf 42.9 L (60.0-200.0)
== END 2022-05-11 12:00 | disposition home health service (06) ==
LOC: OR 05:37 → EDSTATUS 10:15 → 4SSUR 10:52 → OR 05-11 06:31 → 4SSUR 05-11 06:31
PROVIDERS: ADMIT Orthopaedic Surgery; ATTEND Orthopaedic Surgery
DX: M47.27 Other spondylosis with radiculopathy, lumbosacral region (principal); M48.07 Spinal stenosis, lumbosacral region; M51.17 Intervertebral disc disorders with radiculopathy, lumbosacral region; M43.16 Spondylolisthesis, lumbar region; E03.9 Hypothyroidism, unspecified; I25.10 Atherosclerotic heart disease of native coronary artery without angina pectoris; K21.9 Gastro-esophageal reflux disease without esophagitis; E78.5 Hyperlipidemia, unspecified; I10 Essential (primary) hypertension; I71.40 Abdominal aortic aneurysm, without rupture, unspecified; Z86.718 Personal history of other venous thrombosis and embolism; Z79.82 Long term (current) use of aspirin; Z79.899 Other long term (current) drug therapy; Z95.5 Presence of coronary angioplasty implant and graft; Z98.51 Tubal ligation status; Z79.890 Hormone replacement therapy; Z98.42 Cataract extraction status, left eye; Z98.41 Cataract extraction status, right eye; Z82.49 Family history of ischemic heart disease and other diseases of the circulatory system
CPT/HCPCS: 96365; 97116; 97162; 97530; 97166; 80048; 85025; 72100; 72131; 22612; 22614; 22853 ×2; 20930; 20936; G0378; C1713; C1762; J2250; J0330; J1100; J0690 ×3; J2405; J3010; J1170 ×3; J2704; J2001; 36415; 86850; 86900; 86901

== ENCOUNTER → 2022-05-31 | Outpatient (CLI) | payer MEDICARE ==
--- NOTE | 2022-05-31 17:03 | US ---
EXAMINATION TYPE: US venous doppler duplex LE DATE OF EXAM: 05/31/2022 4:48 PM COMPARISON: NONE CLINICAL HISTORY: R60.0 LOCALIZED EDEMA. Edema bilateral legs. Back surgery 3 weeks ago SIDE PERFORMED: bilateral TECHNIQUE: The lower extremity deep venous system is examined utilizing real time linear array sonog matthieu with graded compression, doppler sonography and color-flow sonography. VESSELS IMAGED: Common Femoral Vein Deep Femoral Vein Greater Saphenous Vein * Femoral Vein Popliteal Vein Small Saphenous Vein * Proximal Calf Veins (* superficial vessels) Right Leg: No evidence of acute DVT. duplicate vein noted Left Leg: No evidence of acute DVT Grayscale, color doppler, spectral doppler imaging performed of the deep veins of the lower extremiti es. There is normal flow, compressibility, vascular waveforms. IMPRESSION: No evidence of deep vein thrombosis of the bilateral lower extremities.
== END | disposition home or self-care (01) ==
LOC: RADUSWWP 15:58
PROVIDERS: ATTEND Internal Medicine
DX: R60.0 Localized edema (principal)
CPT/HCPCS: 93970

== ENCOUNTER → 2023-02-02 | Outpatient (CLI) | payer MEDICARE ==
[~2023-02-02] MED LIST changes: -ACETAMINOPHEN TAB 500 MG TAB PO PRN; +DENOSUMAB 60 MG/ML 1 ML SYRINGE SQ ONE; -GABAPENTIN 300 MG CAP PO PRN; -ONDANSETRON 4 MG/2 ML VIAL IVP PRN; -TRANEXAMIC ACID IN NACL,ISO-OS 1,000 MG in SALINE 1 100ML.BAG IVPB PRN
[2023-02-02 15:31] VITALS: BP 197/93; PULSE 55; RESP 18; TEMP 97.6
== END ==
LOC: PROCWHC3 12:58
PROVIDERS: ATTEND Internal Medicine
DX: M81.0 Age-related osteoporosis without current pathological fracture (principal)
CPT/HCPCS: 96372; J0897

== ENCOUNTER → 2023-11-12 | Outpatient (CLI) | payer MEDICARE ==
[2023-11-12 13:19] VITALS: BP 154/87; PULSE 61; RESP 16; TEMP 98.3
[2023-11-12] MEDS: DENOSUMAB 60 MG/ML 1 ML SYRINGE SQ NR (13:19)
== END ==
LOC: PROCWHC3 12:48
PROVIDERS: ATTEND Internal Medicine
DX: M81.0 Age-related osteoporosis without current pathological fracture (principal)
CPT/HCPCS: 96372; J0897

== ENCOUNTER → 2024-03-19 | Outpatient (CLI) | payer MEDICARE ==
[2024-03-19 15:00] LABS: African American GFR (CKD) 40 (>60 ml/min/1.73 sqM); Blood Urea Nitrogen 45 mg/dL (7-17); Non-African American GFR(CKD) 34 (>60 ml/min/1.73 sqM)
== END | disposition home or self-care (01) ==
LOC: RADCTMAIN 14:17
PROVIDERS: ATTEND Surgery
DX: I71.43 Infrarenal abdominal aortic aneurysm, without rupture (principal)
CPT/HCPCS: 82565; 84520

== ENCOUNTER → 2024-04-09 | Outpatient (CLI) | payer MEDICARE ==
[~2024-04-09] MED LIST changes: -DENOSUMAB 60 MG/ML 1 ML SYRINGE SQ ONE; +SODIUM CHLORIDE 0.9% 250 ML in EMPTY BAG 1 BAG IV PRN; +SODIUM CHLORIDE 0.9% 500 ML 500 ML in EMPTY BAG 1 BAG IV PRN
[2024-04-09 08:59] VITALS: BP 155/82; PULSE 62; RESP 16; TEMP 97.7
[2024-04-09] MEDS: SODIUM CHLORIDE 0.9% 1,000 ML IV NR (09:01)
[2024-04-09 10:55] LABS: African American GFR (CKD) 49 (>60 ml/min/1.73 sqM); Blood Urea Nitrogen 34 mg/dL (7-17); Non-African American GFR(CKD) 43 (>60 ml/min/1.73 sqM)
--- NOTE | 2024-04-09 12:04 | CT ---
EXAMINATION TYPE: CT angio abdomen pelvis CT DLP: 2002 mGycm, Automated exposure control for dose reduction was used. DATE OF EXAM: 04/09/2024 11:38 AM COMPARISON:CT lumbar spine 05/09/2022, aortic duplex ultrasound 11/01/2021 CLINICAL INDICATION:Female, 83 years old with history of I71.40 ABDOMINAL AORTIC ANEURYSM, WITHOUT RU PTURE,; ABDOMINAL AORTIC ANEURYSM TECHNIQUE: Multiple thin slice sub-millimeter images were obtained through the abdomen and pelvis bef ore and after administration of contrast. Patient was given Isovue 370, 100 cc intravenously. 3-D r econstructed images and maximum intensity projection images were obtained of the aorta. FINDINGS: CTA Abdomen and pelvis: Tortuosity of the descending thoracic aorta with moderate mural thrombus. The re is a thrombosed 8 mm saccular aneurysm (series 9, image 12). Atherosclerotic plaquing is identifie d within the abdominal aorta. No evidence for intramural hematoma or dissection. Tortuosity of the a bdominal aorta. Fusiform abdominal aortic aneurysm at the level of the renal arteries measuring 4.5 x 3.8 cm with moderate eccentric mural plaque. There is a broad-based saccular aneurysm on the right a t this level at the origin the right renal artery measuring 1.3 cm. This demonstrates complete thromb osis. There is trace flow identified within a narrow caliber right renal artery. Additional right eduardo al artery saccular aneurysm measuring up to 6 mm with questionable internal enhancement. The left eduardo al artery is widely patent. The celiac axis and SMA are patent with mild to moderate stenosis of the origins. Within the mid abdominal aorta is fusiform ectasia measuring up to 2.6 cm. The ALVIN is patent . The bilateral common iliac arteries are patent with mild atherosclerotic plaque. The internal and e xternal iliac arteries are patent with mild atherosclerotic plaque. The common femoral arteries appea r widely patent. VISCERA: The liver, spleen, adrenal glands, kidneys, pancreas, and gallbladder are not optimally enha nced due the arterial phase utilized. LIVER: Unremarkable GALLBLADDER AND BILE DUCTS: Unremarkable. PANCREAS: Unremarkable. SPLEEN: Unremarkable. ADRENAL GLANDS: Unremarkable. KIDNEYS AND URETERS: No evidence of hydronephrosis or renal calculus. The right kidney with a 1.1 cm cyst. PELVIS BLADDER: Underdistended, limiting evaluation. REPRODUCTIVE: Uterus is surgical absent versus atrophic. ABDOMEN & PELVIS STOMACH AND BOWEL: Stomach and duodenum are unremarkable. Distal colonic diverticulosis without evide nce for acute diverticulitis. The appendix is within normal limits. No focal bowel wall thickening or surrounding inflammatory changes. No evidence of bowel obstruction. PERITONEUM: No evidence of pneumoperitoneum or free fluid. MUSCULOSKELETAL: No acute osseous abnormalities. Post surgical changes from posterior fusion involvin g L4-S1 with disc spacers. Prominent node involving the inferior endplate of the L3 vertebral body. D egenerative changes of the pubic symphysis. LYMPH NODES: No evidence for lymphadenopathy. SOFT TISSUE/ABDOMINAL WALL: Small fat filled umbilical hernia. LOWER CHEST: Visualized lung bases are clear. Coronary artery calcifications. Mitral annulus calcific ations. IMPRESSION 1. Fusiform abdominal aortic aneurysm measuring up to 4.5 cm at the level of the renal arteries. Add itional fusiform ectasia of the mid abdominal aorta measuring up to 2.6 cm. 2. 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 3. Trace flow with narrow caliber of the right renal artery with saccular aneurysm measuring up to 6 mm with questionable internal enhancement. Resultant atrophic appearance of the right kidney 4. 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 5. Colonic diverticulosis without evidence for acute diverticulitis. [facility], , 04/09/2024 12:02 PM
== END ==
LOC: PROCWHC3 08:30
PROVIDERS: ATTEND Surgery
DX: I71.40 Abdominal aortic aneurysm, without rupture, unspecified (principal)
CPT/HCPCS: 82565; 84520; 74174; 96360; Q9967

== ENCOUNTER 2024-05-15 13:39 | Inpatient (IN) | payer MEDICARE ==
[2024-05-15] MEDS: HYDROmorphone 1 MG/ML 1 ML SYRINGE IVP STA (14:06)
--- NOTE | 2024-05-15 14:29 | XR ---
EXAMINATION TYPE: XR ankle complete 3 views RT DATE OF EXAM: 05/15/2024 COMPARISON: NONE CLINICAL INDICATION: Female, 83 years old with history of fall down stairs; FINDINGS: Images show trimalleolar ankle fracture dislocation characterized by oblique fracture dista l fibula, displaced fracture of the posterior malleolus, and additional transverse fracture through t he base of the medial malleolus. There is secondary posterior dislocation of the tibiotalar joint and associated soft tissue swelling. IMPRESSION: Trimalleolar ankle fracture dislocation. [facility], , 05/15/2024 2:27 PM
[2024-05-15] MEDS: PROPOFOL 10 MG/ML 20 ML VIAL IV ONE ×2 (15:08→17:29)
--- NOTE | 2024-05-15 15:33 | XR ---
EXAMINATION TYPE: XR ankle limited RT DATE OF EXAM: 05/15/2024 3:28 PM COMPARISON: 05/15/2024 CLINICAL INDICATION: Female, 83 years old with history of post reduction, pain TECHNIQUE: XR ankle limited RT; ankle is imaged in frontal, lateral and oblique projections. FINDINGS/IMPRESSION: Persistent posterior dislocation of the foot with respect to the ankle. There remains displacement of the medial and lateral malleolus. [facility], , 05/15/2024 3:31 PM
[2024-05-15] MEDS: LIDOCAINE 1% INJ 10MG/ML (20 ML MDV) SQ ONE (17:04)
[2024-05-15] MEDS: BUPIVACAINE (PF) 0.5% 30 ML VIAL SQ STA (17:04)
[2024-05-15] MEDS ORDERED: NALOXONE 0.4 MG/ML 1 ML VIAL IV PRN (17:47)
--- NOTE | 2024-05-15 17:47 | ED ---
Lower Extremity Injury HPI - General Chief Complaint: Extremity Injury, Lower Stated Complaint: Fall, right ankle pain Time Seen by Provider: 05/15/24 13:46 Source: patient, EMS Mode of arrival: EMS - History of Present Illness Initial Comments: 83-year-old female presents emergency department after she sustained a fall. Patient was going down the stairs when she missed the last step and rolled her ankle. She was unable to get her 's attention therefore she crawled across the house to get him. EMS was called. It was splinted by fire. Patient had significant deformity with purple discoloration to her ankle. Pulses were thready. Patient brought into the emergency department and had been given 5 mg of morphine for her pain. She denies any other injuries from the fall. Denies head injury. No neck or back pain. Patient is not on any blood thinners. Has had previous back surgery by Dr. Be and is requesting Dr. Be if she needs surgery. - Related Data Home Medications Medication Instructions Recorded Confirmed Levothyroxine Sodium [Levoxyl] 100 mcg PO DAILY 11/24/15 05/15/24 Omeprazole [PriLOSEC] 20 mg PO DAILY 11/24/15 05/15/24 Atorvastatin [Lipitor] 40 mg PO HS 12/14/20 05/15/24 Losartan Potassium 100 mg PO DAILY 12/14/20 05/15/24 DULoxetine HCL [Cymbalta] 30 mg PO DAILY 08/10/21 05/15/24 Aspirin [Adult Low Dose Aspirin EC] 81 mg PO HS 08/25/21 05/15/24 Calcium Carbonate/Vitamin D3 1 tab PO BID@0900,1300 01/13/22 05/15/24 [Calcium 600-Vit D3 10 mcg (400 Iu)] Acetaminophen Tab [Tylenol Tab] 500 mg PO Q6H PRN 05/05/22 05/15/24 Ascorbic Acid [Vitamin C] 2,000 mg PO DAILY 02/02/23 05/15/24 atenoloL [Tenormin] 50 mg PO BID 02/02/23 05/15/24 Amitriptyline HCl [Elavil] 20 mg PO HS 05/15/24 05/15/24 Cyanocobalamin (Vitamin B-12) 2,500 mcg PO DAILY 12/26/24 12/26/24 [Vitamin B-12] Magnesium 200 mg PO DAILY 05/15/24 05/15/24 hydrALAZINE HCL [Apresoline] 50 mg PO TID 05/15/24 05/15/24 Allergies Allergy/AdvReac Type Severity Reaction Status Date / Time No Known Allergies Allergy Verified 05/15/24 19:18 Review of Systems ROS Statement: Those systems with pertinent positive or pertinent negative responses have been documented in the HPI. ROS Other: All systems not noted in ROS Statement are negative. Past Medical History Past Medical History: Coronary Artery Disease (CAD), Deep Vein Thrombosis (DVT), GERD/Reflux, Hyperlipidemia, Hypertension, Musculoskeletal Disorder, Osteoarthritis (OA), Thyroid Disorder Additional Past Medical History / Comment(s): Hx of DVT right leg about 5 yrs ago, hx migraines, vetebra "out of place," low back pain History of Any Multi-Drug Resistant Organisms: None Reported Past Surgical History: Back Surgery, Heart Catheterization With Stent, Tonsillectomy, Tubal Ligation Additional Past Surgical History / Comment(s): BILATERAL CATARACTS, COLONOSCOPY. one cardiac stent, Pain procedure, back surgery april Past Anesthesia/Blood Transfusion Reactions: No Reported Reaction Date of Last Stent Placement:: [id number] Past Psychological History: No Psychological Hx Reported Smoking Status: Never smoker - Past Family History Mother Family Medical History: No Reported History father Family Medical History: Coronary Artery Disease (CAD) General Exam General appearance: alert, in no apparent distress Head exam: Present: atraumatic, normocephalic, normal inspection Eye exam: Present: normal appearance, PERRL, EOMI. Absent: scleral icterus, conjunctival injection, periorbital swelling ENT exam: Present: normal exam, mucous membranes moist Neck exam: Present: normal inspection. Absent: tenderness, meningismus, lymphadenopathy Respiratory exam: Present: normal lung sounds bilaterally. Absent: respiratory distress, wheezes, rales, rhonchi, stridor Cardiovascular Exam: Present: regular rate, normal rhythm, normal heart sounds. Absent: systolic murmur, diastolic murmur, rubs, gallop, clicks GI/Abdominal exam: Present: soft, normal bowel sounds. Absent: distended, tenderness, guarding, rebound, rigid Extremities exam: Present: tenderness, normal capillary refill, joint swelling, other (Gross deformity to the right ankle. The foot is purple and discolored. There is a palpable DP and PT pulse. Patient has limited range of motion due to the obvious injury). Absent: pedal edema, calf tenderness Back exam: Present: normal inspection Neurological exam: Present: alert, oriented X3, CN II-XII intact Psychiatric exam: Present: normal affect, normal mood Skin exam: Present: warm, dry, intact, normal color. Absent: rash Course Vital Signs 05/15/24 05/15/24 05/15/24 13:44 14:09 14:35 Temperature 98.2 F Pulse Rate 61 58 L 57 L Respiratory 20 21 20 Rate Blood Pressure 191/99 196/94 178/92 O2 Sat by Pulse 99 99 100 Oximetry 05/15/24 05/15/24 05/15/24 14:59 15:09 15:12 Temperature Pulse Rate 62 61 55 L Respiratory 21 17 22 Rate Blood Pressure 192/115 207/113 203/105 O2 Sat by Pulse 100 100 86 L Oximetry 05/15/24 05/15/24 05/15/24 15:14 15:30 15:37 Temperature Pulse Rate 56 L 58 L 59 L Respiratory 14 15 15 Rate Blood Pressure 198/97 171/88 169/85 O2 Sat by Pulse 96 99 100 Oximetry 05/15/24 05/15/24 05/15/24 16:03 16:58 17:00 Temperature Pulse Rate 59 L 57 L 57 L Respiratory 16 22 18 Rate Blood Pressure 142/91 197/94 176/97 O2 Sat by Pulse 93 L 99 99 Oximetry 05/15/24 05/15/24 05/15/24 17:08 17:10 17:12 Temperature Pulse Rate 57 L 67 57 L Respiratory 21 25 H 14 Rate Blood Pressure 187/103 183/95 O2 Sat by Pulse 100 94 L 100 Oximetry 05/15/24 05/15/24 05/15/24 17:14 17:15 17:19 Temperature Pulse Rate 59 L 54 L 58 L Respiratory 13 14 13 Rate Blood Pressure 189/99 166/91 171/85 O2 Sat by Pulse 100 96 100 Oximetry 05/15/24 05/15/24 05/15/24 17:24 17:25 18:46 Temperature 98.1 F Pulse Rate 58 L 62 56 L Respiratory 17 15 14 Rate Blood Pressure 176/94 127/75 201/95 O2 Sat by Pulse 96 100 99 Oximetry Procedures - [place] Protocol (Time Out) Procedure Performed:: right ankle reduction Performing Provider: Anna Moreno Nurse: Kelli Momin Respiratory Therapist: Marisela Toscano Patient Identification (2 identifiers required): Verbal, Name Patient/Legal Cellophane Wrapping Examiner has Confirmed: Consent Site: right ankle Site Marked: Yes Site Verified With Patient/Guardian: Yes Final Confirmation: Site - Procedures Initial comment: - Procedural Sedation #2 *Procedural Sedation Start Time: 17:09 *Procedural Sedation Stop Time: 17:40 *Risks,benefits, and alternative therapies discussed?: Yes *Patient indicates understanding of risk/benefit discussion?: Yes *Indications: fracture/dislocation reduction *Previous Adverse Reaction to Anesthesia/Sedation?: No * Testing Complete?: No Reason Test Not Complete:: Post-menopausal *ASA Class: II *Mallampati Airway Score: 1 Preparation: awake overnight monitor applied, pulse oximeter, capnometry used, supplemental O2 applied, reversal agents at bedside, suction/airway equipment at bedside IV Propofol Dose (mgs): 60 Complications: hypoxia Interventions: oxygen applied Patient Tolerated Procedure: well, no complications - Orthopedic Fracture Reduction Fracture #1 Consent Obtained: written consent Side: right Fracture Reduction Location: tibia, fibula Analgesia: procedural sedation Technique: direct manipulation Post Reduction X-rays Demonstrate: other (not reduced) Post-Reduction Neuro Exam: intact Post-Reduction Vascular Exam: intact Splint Applied: Yes Patient Tolerated Procedure: well - Orthopedic Splinting/Casting Injury #1 Side: right Lower Extremity Injury Location: ankle Lower Extremity Immobilizer: posterior splint, stirrup splint, Jesús wrap, synthetic pre-padded splint - Procedural Sedation *Procedural Sedation Start Time: 15:09 *Procedural Sedation Stop Time: 15:40 *Risks,benefits, and alternative therapies discussed?: Yes *Patient indicates understanding of risk/benefit discussion?: Yes *Indications: fracture/dislocation reduction *Previous Adverse Reaction to Anesthesia/Sedation?: No * Testing Complete?: No Reason Test Not Complete:: Post-menopausal *ASA Class: II *Mallampati Airway Score: 1 Preparation: awake overnight monitor applied, pulse oximeter, capnometry used, supplemental O2 applied, reversal agents at bedside, suction/airway equipment at bedside IV Propofol Dose (mgs): 40 Complications: hypoxia Interventions: oxygen applied Patient Tolerated Procedure: well, no complications Medical Decision Making - Medical Decision Making Was pt. sent in by a medical professional or institution (, [facility], PSYCHOLOGICAL ANTHROPOLOGIST, urgent care, hospital, or usp...) When possible be specific @ -No Did you speak to anyone other than the patient for history (EMS, parent, family, police, friend...)? What history was obtained from this source @ -Spoke with EMS for history Did you review nursing and triage notes (agree or disagree)? Why? @ -I reviewed and agree with nursing and triage notes Were old charts reviewed (outside hosp., previous admission, EMS record, old EKG, old radiological studies, urgent care reports/EKG's, usp records)? Report findings @ -No old charts were reviewed Differential Diagnosis (chest pain, altered mental status, abdominal pain women, abdominal pain men, vaginal bleeding, weakness, fever, dyspnea, syncope, headache, dizziness, GI bleed, back pain, seizure, CVA, palpatations, mental health, musculoskeletal)? @ -Differential Musculoskeletal Muscular strain, contusion, ligament sprain, fracture, arthritis, septic arthritis, bursitis, cellulitis, muscle spasm, nerve compression, DVT, arterial occlusion, herpes zoster, electrolyte abnormality, tumor.... This is not meant to be in all inclusive list EKG interpreted by me (3pts min.). @ -Not done X-rays interpreted by me (1pt min.). @ -Yes which demonstrates a right sided trimalleolar fracture dislocation of the ankle CT interpreted by me (1pt min.). @ -None done U/S interpreted by me (1pt. min.). @ -None done What testing was considered but not performed or refused? (CT, X-rays, U/S, labs)? Why? @ -None What meds were considered but not given or refused? Why? @ -None Did you discuss the management of the patient with other professionals (professionals i.e. [facility] Kathleen, PSYCHOLOGICAL ANTHROPOLOGIST, lab, RT, psych nurse, social media senior associate, acquisitions librarian, teacher, bsa/aml compliance officer, case management assistant)? Give summary @ -Spoke with Dr. Be who does present to the emergency department and evaluates the patient Was smoking cessation discussed for >3mins.? @ -No Was critical care preformed (if so, how long)? @ -No Were there social determinants of health that impacted care today? How? (Homelessness, low income, unemployed, alcoholism, drug addiction, transportation, low edu. Level, literacy, decrease access to med. care, correction, rehab)? @ -No Was there de-escalation of care discussed even if they declined (Discuss DNR or withdrawal of care, Hospice)? DNR status @ -No What co-morbidities impacted this encounter? (DM, HTN, Smoking, COPD, CAD, Cancer, CVA, ARF, Chemo, Hep., AIDS, mental health diagnosis, sleep apnea, mor bid obesity)? @ -None Was patient admitted / discharged? Hospital course, mention meds given and ro wesly, prescriptions, significant lab abnormalities, going to OR and other pertinent info. @ -Upon arrival patient seen and evaluated in trauma 2. Thorough history and physical exam was performed. Upon arrival patient is administered additional pain medications. She had been given 5 mg of morphine by EMS. I did perform an x-ray which demonstrates a fracture dislocation. Patient was given procedural sedation and I did attempt to reduce the patient's dislocation. Post reduction films demonstrate persistent dislocation. Because of this I did call and speak with Dr. be. He does present to the emergency department. I did sedate the patient a second time and this time he attempted reduction which was unsuccessful. He states that the patient must go to the OR for fixation. Catherine chance will be admitted to his service with medicine on consult Undiagnosed new problem with uncertain prognosis? @ -No Drug Therapy requiring intensive monitoring for toxicity (Heparin, Nitro, Insulin, Cardizem)? @ -No Were any procedures done? @ -No Diagnosis/symptom? @ -Acute fall, right ankle trimalleolar fracture dislocation Acute, or Chronic, or Acute on Chronic? @ -Acute Uncomplicated (without systemic symptoms) or Complicated (systemic symptoms)? @ -Complicated Side effects of treatment? @ -No Exacerbation, Progression, or Severe Exacerbation? @ -No Poses a threat to life or bodily function? How? (Chest pain, USA, NM, pneumonia, PE, COPD, DKA, ARF, appy, cholecystitis, CVA, Diverticulitis, Homicidal, Suicidal, threat to staff... and all critical care pts) @ -No - Lab Data Result diagrams: 05/17/24 03:45 05/17/24 03:45 Lab Results 05/15/24 05/15/2405/15/24 Range/Units 18:09 18:09 18:09 WBC 7.7 (3.8-10.6) k/uL RBC 4.09 (3.80-5.40) m/uL Hgb 12.2 (11.4-16.0) gm/dL Hct 37.8 (34.0-46.0) % MCV 92.4 (80.0-100.0) fL MCH 29.9 (25.0-35.0) pg MCHC 32.4 (31.0-37.0) g/dL RDW 12.6 (11.5-15.5) % Plt Count 210 (150-450) k/uL MPV 6.8 Immature Gran % (Auto) % Absolute Nucleated RBC % Neutrophils % 77 % Lymphocytes % 11 % Monocytes % 7 % Eosinophils % 2 % Basophils % 0 % Immature Gran # (0.00-0.04) X 10*3/uL Neutrophils # 6.0 (1.3-7.7) k/uL Lymphocytes # 0.9 L (1.0-4.8) k/uL Monocytes # 0.6 (0-1.0) k/uL Eosinophils # 0.1 (0-0.7) k/uL Basophils # 0.0 (0-0.2) k/uL NRBC/100 WBC Diff (0.00-0.01) X 10*3/uL Hypochromasia PT 10.4 (10.0-12.5) sec INR 0.9 (<1.2) APTT 20.3 L (22.0-30.0) sec Sodium 135 L (137-145) mmol/L Potassium 4.9 (3.5-5.1) mmol/L Chloride 106 (98-107) mmol/L Carbon Dioxide 23 (22-30) mmol/L Anion Gap 6 mmol/L BUN 32 H (7-17) mg/dL Creatinine 1.21 H (0.52-1.04) mg/dL Est GFR (CKD-EPI)AfAm 49 (>60 ml/min/1.73 sqM) Est GFR (CKD-EPI)NonAf 42 (>60 ml/min/1.73 sqM) Glucose 86 (74-99) mg/dL POC Glucose (mg/dL) (70-110) mg/dL POC Glu Pipelines Manager ID Calcium 8.9 (8.4-10.2) mg/dL Total Bilirubin 0.4 (0.2-1.3) mg/dL AST 27 (14-36) U/L ALT 20 (4-34) U/L Alkaline Phosphatase 38 (38-126) U/L Total Protein 5.7 L (6.3-8.2) g/dL Albumin 3.6 (3.5-5.0) g/dL Globulin g/dL Albumin/Globulin Ratio Blood Type Blood Type Recheck Bld Type Recheck Status Antibody Screen Spec Expiration Date 05/15/24 05/15/24 05/16/24 Range/Units 19:36 22:14 07:33 WBC 8.02 6.9 (3.8-10.6) k/uL RBC 3.89 L 3.68 L (3.80-5.40) m/uL Hgb 11.3 L 11.0 L (11.4-16.0) gm/dL Hct 36.9 L 35.1 (34.0-46.0) % MCV 94.9 95.2 (80.0-100.0) fL MCH 29.0 30.0 (25.0-35.0) pg MCHC 30.6 L 31.5 (31.0-37.0) g/dL RDW 13.2 12.6 (11.5-15.5) % Plt Count 184 195 (150-450) k/uL MPV 9.4 L 6.6 Immature Gran % (Auto) 0.40 % Absolute Nucleated RBC 0 % Neutrophils % 70.1 78 % Lymphocytes % 13.8 11 % Monocytes % 13.6 7 % Eosinophils % 1.9 2 % Basophils % 0.2 0 % Immature Gran # 0.03 (0.00-0.04) X 10*3/uL Neutrophils # 5.62 5.4 (1.3-7.7) k/uL Lymphocytes # 1.11 0.8 L (1.0-4.8) k/uL Monocytes # 1.09 H 0.5 (0-1.0) k/uL Eosinophils # 0.15 0.1 (0-0.7) k/uL Basophils # 0.02 0.0 (0-0.2) k/uL NRBC/100 WBC Diff 0 (0.00-0.01) X 10*3/uL Hypochromasia Moderate PT (10.0-12.5) sec INR (<1.2) APTT (22.0-30.0) sec Sodium (137-145) mmol/L Potassium (3.5-5.1) mmol/L Chloride (98-107) mmol/L Carbon Dioxide (22-30) mmol/L Anion Gap mmol/L BUN (7-17) mg/dL Creatinine (0.52-1.04) mg/dL Est GFR (CKD-EPI)AfAm (>60 ml/min/1.73 sqM) Est GFR (CKD-EPI)NonAf (>60 ml/min/1.73 sqM) Glucose (74-99) mg/dL POC Glucose (mg/dL) 95 (70-110) mg/dL POC Glu Pipelines Manager ID Opal Huber Calcium (8.4-10.2) mg/dL Total Bilirubin (0.2-1.3) mg/dL AST (14-36) U/L ALT (4-34) U/L Alkaline Phosphatase (38-126) U/L Total Protein (6.3-8.2) g/dL Albumin (3.5-5.0) g/dL Globulin g/dL Albumin/Globulin Ratio Blood Type Blood Type Recheck Bld Type Recheck Status Antibody Screen Spec Expiration Date 05/16/24 05/16/24 Range/Units 07:33 07:40 WBC (3.8-10.6) k/uL RBC (3.80-5.40) m/uL Hgb (11.4-16.0) gm/dL Hct (34.0-46.0) % MCV (80.0-100.0) fL MCH (25.0-35.0) pg MCHC (31.0-37.0) g/dL RDW (11.5-15.5) % Plt Count (150-450) k/uL MPV Immature Gran % (Auto) % Absolute Nucleated RBC % Neutrophils % % Lymphocytes % % Monocytes % % Eosinophils % % Basophils % % Immature Gran # (0.00-0.04) X 10*3/uL Neutrophils # (1.3-7.7) k/uL Lymphocytes # (1.0-4.8) k/uL Monocytes # (0-1.0) k/uL Eosinophils # (0-0.7) k/uL Basophils # (0-0.2) k/uL NRBC/100 WBC Diff (0.00-0.01) X 10*3/uL Hypochromasia PT (10.0-12.5) sec INR (<1.2) APTT (22.0-30.0) sec Sodium 133 L (137-145) mmol/L Potassium 4.7 (3.5-5.1) mmol/L Chloride 106 (98-107) mmol/L Carbon Dioxide 21 L (22-30) mmol/L Anion Gap 6 mmol/L BUN 26 H (7-17) mg/dL Creatinine 1.12 H (0.52-1.04) mg/dL Est GFR (CKD-EPI)AfAm 53 (>60 ml/min/1.73 sqM) Est GFR (CKD-EPI)NonAf 46 (>60 ml/min/1.73 sqM) Glucose 105 H (74-99) mg/dL POC Glucose (mg/dL) (70-110) mg/dL POC Glu Pipelines Manager ID Calcium 8.5 (8.4-10.2) mg/dL Total Bilirubin 0.4 (0.2-1.3) mg/dL AST 22 (14-36) U/L ALT 15 (4-34) U/L Alkaline Phosphatase 41 (38-126) U/L Total Protein 5.2 L (6.3-8.2) g/dL Albumin 3.2 L (3.5-5.0) g/dL Globulin 2.0 g/dL Albumin/Globulin Ratio 1.6 Blood Type B Positive Blood Type Recheck B Pos Bld Type Recheck Status No Antibody Screen NEGATIVE Spec Expiration Date 05/19/20242339 Disposition Clinical Impression: Trimalleolar fracture of right ankle, Fall Disposition: ADMITTED IP TO THIS [facility] Condition: Serious Is patient prescribed a controlled substance at d/c from ED?: No Time of Disposition: 17:46 Decision to Admit Reason: Admit from EC Decision Date: 05/15/24 Decision Time: 17:46
--- NOTE | 2024-05-15 17:58 | XR ---
EXAMINATION TYPE: XR ankle limited RT DATE OF EXAM: 05/15/2024 5:40 PM COMPARISON: 05/15/2024 CLINICAL INDICATION: Female, 83 years old with history of post reduction; PHH, pain TECHNIQUE: XR ankle limited RT; frontal, lateral and oblique projections. FINDINGS/IMPRESSION: 1. No evidence of acute fracture. Enthesophyte remains subluxed posteriorly with respect to the tibia. Displacement of the fibula is si milar the medial malleolus has improved placement, no prior.r foot is thought to be displaced up to 1 .7 cm. [facility], , 05/15/2024 5:55 PM
[2024-05-15 18:15] LABS: Basophils % (A) 0 %; Eosinophils # (A) 0.1 k/uL (0-0.7); Eosinophils % (A) 2 %; HCT 37.8 % (34.0-46.0); HGB 12.2 gm/dL (11.4-16.0); Lymphocytes # (A) 0.9 k/uL (1.0-4.8); Lymphocytes % (A) 11 %; MCH 29.9 pg (25.0-35.0); MCHC 32.4 g/dL (31.0-37.0); MCV 92.4 fL (80.0-100.0); Mean Platelet Volume 6.8; Monocytes # (A) 0.6 k/uL (0-1.0); Monocytes % (A) 7 %; Neutrophils % (A) 77 %; Platelet Count 210 k/uL (150-450); RBC 4.09 m/uL (3.80-5.40); RDW 12.6 % (11.5-15.5); WBC 7.7 k/uL (3.8-10.6)
[2024-05-15 18:31] LABS: ALT 20 U/L (4-34); African American GFR (CKD) 49 (>60 ml/min/1.73 sqM); Albumin 3.6 g/dL (3.5-5.0); Anion Gap 6 mmol/L; Blood Urea Nitrogen 32 mg/dL (7-17); Calcium 8.9 mg/dL (8.4-10.2); Carbon Dioxide 23 mmol/L (22-30); Chloride 106 mmol/L (98-107); Glucose 86 mg/dL (74-99); Non-African American GFR(CKD) 42 (>60 ml/min/1.73 sqM); Sodium 135 mmol/L (137-145); Total Bilirubin 0.4 mg/dL (0.2-1.3); Total Protein 5.7 g/dL (6.3-8.2)
[2024-05-15 18:34] LABS: INR 0.9 (<1.2); Partial Thromboplastin Time 20.3 sec (22.0-30.0); Prothrombin Time 10.4 sec (10.0-12.5)
[2024-05-15 18:36] LABS: Potassium 4.9 mmol/L (3.5-5.1)
[2024-05-15 18:37] LABS: AST 27 U/L (14-36); Alkaline Phosphatase 38 U/L (38-126)
[2024-05-15] MEDS: IV FLUID CONTINUATION 1,000 ML IV ONE (19:13)
[2024-05-15 19:37] LABS: Glucose,Whole Blood 95 mg/dL (70-110)
[2024-05-15] MEDS: ceFAZolin 1,000 MG VIAL IVPB ONE (19:45)
[2024-05-15] MEDS ORDERED: MIDAZOLAM 2 MG/2 ML VIAL ONE (19:45)
[2024-05-15] MEDS ORDERED: fentaNYL (PF) 50 MCG/ML 2 ML AMP ONE (19:45)
[2024-05-15] MEDS ORDERED: HYDROmorphone 0.5 MG/0.5 ML SYRINGE IVP PRN ×2 (20:02→21:08)
[2024-05-15] MEDS: BACITRACIN ZINC 500 UNIT/GM OINT 28.4 GM TUBE TOPICAL ONE (20:36)
--- NOTE | 2024-05-15 20:58 | P.HPOR ---
History of Present Illness H&P Date: 05/15/24 83 yo female sustained a fall from standing at home when she slipped on ice causing a twisting to her right ankle. She had visible deformity and inability to ambulate after and was brought to ED via EMS with her . She had attempted reduction in the ED by ED provider as well as myself which were unsuccessful due to the high instability of the fracture. She was subsequently taken to the OR emergent for closed reduction and external fixation due to swelling, open medial malleolar fracture and need for reduction to prevent further skin breakdown. She has pain in her ankle, denies any nu mbness/tingling, sob, cp, f, c, n, v, or other issues at this time. She did not hit her head when she fell. She did not LOC. Review of Systems 16 pt ROS completed and as stated in HPI all other systems reviewed negative. Past Medical History Past Medical History: Coronary Artery Disease (CAD), Deep Vein Thrombosis (DVT), GERD/Reflux, Hyperlipidemia, Hypertension, Musculoskeletal Disorder, Osteoarthritis (OA), Thyroid Disorder Additional Past Medical History / Comment(s): Hx of DVT right leg about 5 yrs ago, hx migraines, vetebra "out of place," low back pain History of Any Multi-Drug Resistant Organisms: None Reported Past Surgical History: Back Surgery, Heart Catheterization With Stent, Tonsillectomy, Tubal Ligation Additional Past Surgical History / Comment(s): BILATERAL CATARACTS, COLONOSCOPY. one cardiac stent, Pain procedure, back surgery april Past Anesthesia/Blood Transfusion Reactions: No Reported Reaction Date of Last Stent Placement:: [id number] Past Psychological History: No Psychological Hx Reported Smoking Status: Never smoker - Past Family History Mother Family Medical History: No Reported History father Family Medical History: Coronary Artery Disease (CAD) Medications and Allergies Home Medications Medication Instructions Recorded Confirmed Type Levothyroxine Sodium [Levoxyl] 100 mcg PO DAILY 11/24/15 05/15/24 History Omeprazole [PriLOSEC] 20 mg PO DAILY 11/24/15 05/15/24 History Atorvastatin [Lipitor] 40 mg PO HS 12/14/20 05/15/24 History Losartan Potassium 100 mg PO DAILY 12/14/20 05/15/24 History DULoxetine HCL [Cymbalta] 30 mg PO DAILY 08/10/21 05/15/24 History Aspirin [Adult Low Dose Aspirin EC] 81 mg PO HS 08/25/21 05/15/24 History Calcium Carbonate/Vitamin D3 1 tab PO BID@0900,1300 01/13/22 05/15/24 History [Calcium 600-Vit D3 10 mcg (400 Iu)] Acetaminophen Tab [Tylenol Tab] 500 mg PO Q6H PRN 05/05/22 05/15/24 History Ascorbic Acid [Vitamin C] 2,000 mg PO DAILY 02/02/23 05/15/24 History atenoloL [Tenormin] 50 mg PO BID 02/02/23 05/15/24 History Amitriptyline HCl [Elavil] 20 mg PO HS 05/15/24 05/15/24 History Cyanocobalamin (Vitamin B-12) 2,500 mcg PO DAILY 05/15/24 05/15/24 History [Vitamin B-12] Magnesium 200 mg PO DAILY 05/15/24 05/15/24 History hydrALAZINE HCL [Apresoline] 50 mg PO TID 05/15/24 05/15/24 History Allergies Allergy/AdvReac Type Severity Reaction Status Date / Time No Known Allergies Allergy Verified 05/15/24 19:18 Physical Examination Osteopathic Statement: *. No significant issues noted on an osteopathic structural exam other than those noted in the History and Physical/Consult. Alert and oriented 3 appears well-nourished well-hydrated is no acute distress. She does not appear septic. On exam she is laying in the trauma bay. Her right lower extremity is currently splinted. The splint was removed. She has visible deformity of the right ankle with medial tenting and skin breakdown. She has tennis palpation of the right ankle as well as pain with any motion of t he right ankle. She has numbness in the great toe however she has good capillary refill is brisk and less than 2 seconds all toes. She has positive EHL FHL. She is not able to dorsi flexion plantarflex at this time secondary to fracture. She is intact to light touch and pinprick sensation in L2 S1 nerve distribution. Compartments are soft and compressible at this time. The remainder of her exam is benign she has full painless range of motion of all upper and lower extremity joints at this time. No other injuries evident at this time. Results X-rays reveal a fracture dislocation of the right ankle with trimalleolar involvement. There is a posterior malleolus is 10-15% with a lateral malleolus that is displaced large medial malleolar fracture. There is medial clear space widening. There is obvious syndesmotic injury as well. Postreduction films showed inadequate reduction. - Labs Labs: Abnormal Lab Results - Last 24 Hours (Table) 05/15/24 05/15/24 05/15/24 Range/Units 18:09 18:09 18:09 Lymphocytes # 0.9 L (1.0-4.8) k/uL APTT 20.3 L (22.0-30.0) sec Sodium 135 L (137-145) mmol/L BUN 32 H (7-17) mg/dL Creatinine 1.21 H (0.52-1.04) mg/dL Total Protein 5.7 L (6.3-8.2) g/dL H & H 05/15/24 Range/Units 18:09 Hgb 12.2 (11.4-16.0) gm/dL Hct 37.8 (34.0-46.0) % Coagulation 05/15/24 Range/Units 18:09 INR 0.9 (<1.2) Result Diagrams: 05/15/24 18:09 05/15/24 18:09 Assessment and Plan Assessment: Right ankle trimalleolar fracture dislocation impending open with skin tenting medially and skin abrasion Classification as grade 2 open fracture dislocation right ankle Plan: Nothing by mouth Appropriate antibiotic given Attempted reduction in the ED unsuccessful Discussed with the patient and her risks and benefits the patient brought to the OR emergently for closed reduction external fixation placement they are amenable to this. Risks and benefits were discussed and clean risk of bleeding infection damage stretches risk of reoperation was anesthesia up to and including are willing to assume these risks and all her surgery.
--- NOTE | 2024-05-15 21:02 | P.PN ---
Progress Note - Text Progress Note Date: 05/15/24 POST OP: DX: RIGHT ANKLE GRADE II OPEN TRIMAL FRACTURE DISLOCATION PROCEDURE: CLOSED REDUCTION EX FIX PLACEMENT SURGEON: PING ANESTHESIA: SPINAL, MAC EBL: 10 CC FLUIDS: 500CC URINE: 0CC COMPLICATION: NONE DISPO: STABLE TO PACU POST ORDERS: CT RIGHT ANKLE POST OP NWB PAIN CONTROL GI PPX DVT PPX PIN SITE CLEANING DAILY
[2024-05-15] MEDS ORDERED: hydrOXYzine pamoate 25 MG CAP PO PRN (21:08)
[2024-05-15] MEDS ORDERED: SENNOSIDES-DOCUSATE SODIUM 1 EACH TAB PO PRN (21:08)
[2024-05-15] MEDS ORDERED: ONDANSETRON 4 MG/2 ML VIAL IVP PRN (21:08)
--- NOTE | 2024-05-15 21:11 | XR ---
Intraoperative/procedural fluoroscopic services were provided. Total fluoroscopy time is 54.6 seconds with a total of 6 submitted images to PACS. Please see the operative/procedural note for further det ails. DAP: 0.33 mGym2 Please see surgeon's report for further details. [facility], , 05/15/2024 9:08 PM
[2024-05-15] MEDS: hydrALAZINE HCL 20 MG/ML 1 ML VIAL IVP STA (21:26)
[2024-05-15] MEDS: CYCLOBENZAPRINE 5 MG TAB PO SCH (22:55)
[2024-05-15] MEDS: HYDROmorphone 1 MG/ML 1 ML SYRINGE IVP PRN (23:21)
[2024-05-16] MEDS: ATORVASTATIN 40 MG TAB PO SCH (00:30)
[2024-05-16] MEDS: hydrALAZINE HCL 50 MG TAB PO SCH (00:30)
[2024-05-16] MEDS: LOSARTAN 50 MG TAB PO SCH (00:30)
[2024-05-16] MEDS: HYDROcodone/APAP 5-325MG 1 EACH TAB PO PRN ×2 (01:30→08:33)
[2024-05-16 01:37] LABS: Basophils # (A) 0.02 X 10*3/uL (0.00-0.10); Basophils % (A) 0.2 %; Eosinophils # (A) 0.15 X 10*3/uL (0.04-0.35); Eosinophils % (A) 1.9 %; HCT 36.9 % (37.2-46.3); HGB 11.3 g/dL (12.0-15.0); Lymphocytes # (A) 1.11 X 10*3/uL (0.90-5.00); Lymphocytes % (A) 13.8 %; MCHC 30.6 g/dL (32.0-37.0); MCV 94.9 FL (80.0-97.0); Mean Platelet Volume 9.4 FL (9.5-12.2); Monocytes # (A) 1.09 X 10*3/uL (0.20-1.00); Monocytes % (A) 13.6 %; NRBC Per 100 WBC 0 X 10*3/uL (0.00-0.01); Neutrophils # (A) 5.62 X 10*3/uL (1.80-7.70); Neutrophils % (A) 70.1 %; Platelet Count 184 X 10*3/uL (140-440); RBC 3.89 X 10*6/uL (4.10-5.20); RDW 13.2 % (11.5-14.5); WBC 8.02 X 10*3/uL (4.50-10.00)
--- NOTE | 2024-05-16 03:25 | P.CONS ---
History of Present Illness - Reason for Consult Consult date: 05/16/24 Medical management - Chief Complaint Medical management - History of Present Illness Patient is a 83-year-old female who sustained a fall earlier today was diagnosed with grade 2 open fracture dislocation right ankle. She subsequently underwent an emergent closed reduction and external fixation of the right ankle earlier last night by Dr. Taylor. She is currently being seen in the surgical unit for consultation for medical management. No intraoperative complications were reported. Estimated blood loss of 10 cc. Patient was seen at bedside. Currently endorses pain, numbness, tingling sensation in her right ankle. Patient has not attempted to ambulate as of yet. She also has not passed gas or had a bowel movement as of yet. Denies fever, chills, chest pain, shortness of breath, belly pain, lightheadedness or dizziness. No tingling, numbness, weakness anywhere else except the right ankle. Vitals on admission pulse rate 64, blood pressure 152/75, O2 sat 97% on nasal cannula 2 L/min Right ankle x-ray prior to the surgery showed trimalleolar ankle fracture dislocation Labs on admission show WBC 8.02, hemoglobin 11.3, hematocrit 36.9, platelets 18 4, sodium 135, potassium 4.9, chloride 106, carbon dioxide 23, BUN 32, creatinine 1.21, glucose 86 Review of systems: Pertinent positives and negatives as discussed in HPI, a complete review of systems was performed and all other systems are negative. PMH: History of GERD, hyperlipidemia, hypertension, musculoskeletal disorder, osteoarthritis, history of deep vein thrombosis, coronary artery disease, thyroid disease PSH: Back surgery, heart cath with stent, tonsillectomy, tubal ligation FMH: Father has a history of coronary artery disease Allergies: No known drug allergies Social history: Tobacco: Never smoker Alcohol: No alcohol use Recreational drugs: No drug use Travel: No travel history Sick contacts: No sick contacts Physical examination: Vital signs reviewed General: nontoxic, no distress, appears at stated age Derm: warm, dry, intact Head: atraumatic, normocephalic, symmetric Eyes: EOMI, anicteric sclera Mouth: no lip lesion, mucus membranes moist Cardiovascular: S1 S2 reg, no murmur Lungs: CTA bilateral, no rhonchi, no rales, no accessory muscle use Abdominal: soft, non-tender to palpation Extremities: No cyanosis, clubbing, or pedal edema. Surgical dressing noted on the right ankle with no gross abnormalities. Neuro: Alert, Oriented, Gross neurological examination did not reveal any focal deficits. Psych: well appearing, appropriate affect Assessment/Plan: 83-year-old female who sustained a fall earlier today was diagnosed with grade 2 open fracture dislocation of the right ankle. Patient subsequently underwent an emergent closed reduction and external fixation of the right ankle by Dr. Taylor. She is currently being seen in the surgical unit for medical management. Active: #. Hyponatremia Sodium 135 Initiate normal saline at 75 cc an hour Monitor morning CMP #. Chronic kidney disease stage IIIa Baseline creatinine of 1.4 Estimated GFR of 49 BUN 32 Creatinine 1.21 Monitor morning CMP #. Status post closed reduction and external fixation of the right ankle on 04/15/2024 Defer pain management and DVT prophylaxis to orthopedic surgery Hemoglobin 11.3, likely to be normal postsurgical change Monitor morning CBC Chronic: #. GERD Restart omeprazole 20 mg daily #. Hyperlipidemia Restart atorvastatin 40 mg at bedtime #. Hypothyroidism Restart levothyroxine 100 mcg daily CODE STATUS: Full code I have seen and evaluated the patient today. I Discussed the case with the resident and agree with the resident's findings I edited the assessment and plan as necessary as documented in the resident's note. Past Medical History Past Medical History: Coronary Artery Disease (CAD), Deep Vein Thrombosis (DVT), GERD/Reflux, Hyperlipidemia, Hypertension, Musculoskeletal Disorder, Osteoarthritis (OA), Thyroid Disorder Additional Past Medical History / Comment(s): Hx of DVT right leg about 5 yrs ago, hx migraines, vetebra "out of place," low back pain History of Any Multi-Drug Resistant Organisms: None Reported Past Surgical History: Back Surgery, Heart Catheterization With Stent, Tonsill ectomy, Tubal Ligation Additional Past Surgical History / Comment(s): BILATERAL CATARACTS, COLONOSCOPY. one cardiac stent, Pain procedure, back surgery april Past Anesthesia/Blood Transfusion Reactions: No Reported Reaction Date of Last Stent Placement:: [id number] Past Psychological History: No Psychological Hx Reported Smoking Status: Never smoker Past Alcohol Use History: None Reported Past Drug Use History: None Reported - Past Family History Mother Family Medical History: No Reported History father Family Medical History: Coronary Artery Disease (CAD) Medications and Allergies Home Medications Medication Instructions Recorded Confirmed Type Levothyroxine Sodium [Levoxyl] 100 mcg PO DAILY 11/24/15 05/15/24 History Omeprazole [PriLOSEC] 20 mg PO DAILY 11/24/15 05/15/24 History Atorvastatin [Lipitor] 40 mg PO HS 12/14/20 05/15/24 History Losartan Potassium 100 mg PO DAILY 12/14/20 05/15/24 History DULoxetine HCL [Cymbalta] 30 mg PO DAILY 08/10/21 05/15/24 History Aspirin [Adult Low Dose Aspirin EC] 81 mg PO HS 08/25/21 05/15/24 History Calcium Carbonate/Vitamin D3 1 tab PO BID@0900,1300 01/13/22 05/15/24 History [Calcium 600-Vit D3 10 mcg (400 Iu)] Acetaminophen Tab [Tylenol Tab] 500 mg PO Q6H PRN 05/05/22 05/15/24 History Ascorbic Acid [Vitamin C] 2,000 mg PO DAILY 02/02/23 05/15/24 History atenoloL [Tenormin] 50 mg PO BID 02/02/23 05/15/24 History Amitriptyline HCl [Elavil] 20 mg PO HS 05/15/24 05/15/24 History Cyanocobalamin (Vitamin B-12) 2,500 mcg PO DAILY 05/15/24 05/15/24 History [Vitamin B-12] Magnesium 200 mg PO DAILY 05/15/24 05/15/24 History hydrALAZINE HCL [Apresoline] 50 mg PO TID 05/15/24 05/15/24 History Allergies Allergy/AdvReac Type Severity Reaction Status Date / Time No Known Allergies Allergy Verified 05/15/24 19:18 Physical Exam Vitals: Vital Signs Temp Pulse Pulse Resp BP BP Pulse Ox 05/16/24 00:39 64 152/75 97 05/16/24 00:24 182/75 97 05/16/24 00:10 68 160/78 98 05/15/24 23:54 76 145/80 97 05/15/24 23:39 184/80 95 05/15/24 23:25 61 189/85 98 05/15/24 22:54 53 L 186/74 93 L 05/15/24 22:10 98.3 F 61 16 157/73 97 05/15/24 21:41 54 L 16 157/76 99 05/15/24 21:26 55 L 16 172/82 99 05/15/24 21:11 54 L 16 193/79 98 05/15/24 20:56 97.9 F 59 L 20 151/70 96 05/15/24 19:13 99.1 F 57 L 16 191/84 98 05/15/24 18:46 98.1 F 56 L 14 201/95 99 05/15/24 17:25 62 15 127/75 100 05/15/24 17:24 58 L 17 176/94 96 05/15/24 17:19 58 L 13 171/85 100 05/15/24 17:15 54 L 14 166/91 96 05/15/24 17:14 59 L 13 189/99 100 05/15/24 17:12 57 L 14 100 05/15/24 17:10 67 25 H 183/95 94 L 05/15/24 17:08 57 L 21 187/103 100 05/15/24 17:00 57 L 18 176/97 99 05/15/24 16:58 57 L 22 197/94 99 05/15/24 16:03 59 L 16 142/91 93 L 05/15/24 15:37 59 L 15 169/85 100 05/15/24 15:30 58 L 15 171/88 99 05/15/24 15:14 56 L 14 198/97 96 05/15/24 15:12 55 L 22 203/105 86 L 05/15/24 15:09 61 17 207/113 100 05/15/24 14:59 62 21 192/115 100 05/15/24 14:35 57 L 20 178/92 100 05/15/24 14:09 58 L 21 196/94 99 05/15/24 13:44 98.2 F 61 20 191/99 99 Intake and Output 05/15/24 05/15/24 05/16/24 14:59 22:59 06:59 Intake Total 800 Output Total 10 Balance 790 Intake: IV 800 Output: Estimated Blood Loss 10 Other: Weight 66.678 kg 66.678 kg 66.678 kg Results CBC & Chem 7: 05/15/24 22:14 05/15/24 18:09 Labs: Abnormal Lab Results - Last 24 Hours (Table) 1205/15/24 05/15/24 Range/Units 18:09 18:09 18:09 RBC (4.10-5.20) X 10*6/uL Hgb (12.0-15.0) g/dL Hct (37.2-46.3) % MCHC (32.0-37.0) g/dL MPV (9.5-12.2) FL Lymphocytes # 0.9 L (1.0-4.8) k/uL Monocytes # (0.20-1.00) X 10*3/uL APTT 20.3 L (22.0-30.0) sec Sodium 135 L (137-145) mmol/L BUN 32 H (7-17) mg/dL Creatinine 1.21 H (0.52-1.04) mg/dL Total Protein 5.7 L (6.3-8.2) g/dL 05/15/24 Range/Units 22:14 RBC 3.89 L (4.10-5.20) X 10*6/uL Hgb 11.3 L (12.0-15.0) g/dL Hct 36.9 L (37.2-46.3) % MCHC 30.6 L (32.0-37.0) g/dL MPV 9.4 L (9.5-12.2) FL Lymphocytes # (1.0-4.8) k/uL Monocytes # 1.09 H (0.20-1.00) X 10*3/uL APTT (22.0-30.0) sec Sodium (137-145) mmol/L BUN (7-17) mg/dL Creatinine (0.52-1.04) mg/dL Total Protein (6.3-8.2) g/dL
--- NOTE | 2024-05-16 04:37 | CT ---
EXAM: CT Right Lower Extremity Without Intravenous Contrast, Ankle CLINICAL HISTORY: ITS.REASON CT Reason: FRACTURE TECHNIQUE: Axial computed tomography images of the right ankle without intravenous contrast. CTDI is 21 mGy and DLP is 975.5 mGy-cm. This CT exam was performed using one or more of the following dose reduction techniques: automated exposure control, adjustment of the mA and/or kV according to patient size, and/or use of iterative reconstruction technique. COMPARISON: X-ray dated 05/15/2024 FINDINGS: Bones/joints: Obliquely oriented fracture is visualized to the distal fibula originating at the level of the tibiotalar joint. Comminuted mildly displaced fracture is visualized to the medial malleolus. Fracture is visualized to the posterior malleolus. External fixation is in place. No dislocation. Soft tissues: Soft tissue swelling is seen surrounding the fracture. The medial malleolar fracture closely approximates the posterior tibial tendon. Underlying entrapment is not excluded. IMPRESSION: External fixation of a trimalleolar fracture.
[2024-05-16] MEDS: LEVOTHYROXINE 100 MCG TAB PO SCH (05:57)
--- NOTE | 2024-05-16 07:39 | P.OP ---
Date of Procedure: 05/15/24 Preoperative Diagnosis: Right ankle fracture dislocation trimalleolar grade 2 open s/p FFS Postoperative Diagnosis: Right ankle fracture dislocation trimalleolar grade 2 open s/p FFS Procedure(s) Performed: 1. RIGHT ANKLE CLOSED REDUCTION WITH EXTERNAL FIXATION PLACEMENT 2. RIGHT ANKLE INSTRUMENTATION, EXTERNAL FIXATION Implants: [employer] EXTERNAL FIXATOR Anesthesia: GETA, spinal Surgeon: Lee Taylor Polishing Machine Operator #1: Thomas Hatch (WILMA Lino Was present and assisted with all aspects of the case from positioning to dressing placement) Estimated Blood Loss (ml): 10 IV fluids (ml): 500 Urine output (ml): 0 Pathology: none sent Condition: stable Disposition: PACU Indications for Procedure: Orthopedic Surgery Risk Review Casandra Marrero is a 83-year-old female presenting for evaluation of sudden onset right ankle pain, inability to ambulate after step fall and twisting injury to right ankle. It was my pleasure to have seen and examined Casandra Marrero. In our visit today we have had a chance to go over subjective complaints, physical examination findings and treatments including the natural course history without intervention and various interventional options. Her imaging de monstrates right trimalleolar fracture dislocation. On physical exam, Casandra Marrero demonstrates pain with motion of right ankle, which is NV intact at this time. There is medial soft tissue disruption with impending open fracture and skin tenting I have explained to the patient that this fracture needs stabilization. Based on the patients imaging, physical exam, and the rapid progression and disabling nature of her symptoms, at this time I recommend surgery in the form or a: Closed reduction with external fixator placement right ankle I discussed the risk and benefits of this procedure at length with Casandra Marrero. Questions were invited and answered, and the patient wishes to proceed as outlined below. Currently, I am recommendin. Closed reduction with external fixator placement right ankle 2. Review of surgical risks and benefits as well as an educational packet on the proposed surgical procedure. Risks: All surgical procedures come with inherent risks, including those related to positioning, anesthesia, intraoperative findings, and postoperative complications. It is important to understand that surgery does not come with any guarantee of a successful outcome as complications and adverse events are always possible. The patient was given a handout discussing the surgical procedure and risks associated with the intervention, both of which were discussed with the patient. These risks include but are not limited to the following: - Experiencing same, different or even worse symptoms compared to before surgery. - Requiring further surgery or other forms of treatment presently or at some time in the future . - On an extreme but fortunately relatively rare basis severe complication such as blindness, stroke, heart attack, temporary and/or permanent nerve injury, paralysis, coma, or may occur, sometimes without known explanation. - Surgical complications may include but are not limited to risk of infection, fluid accumulation in the surgical dissection site, including a seroma or hematoma, that requires additional surgery, wound drainage, bleeding, new numbness or weakness, vision changes/loss, spinal fluid leakage, non-healing and/or infected incision, headaches, difficulty or inability to swallow, hoarseness, hemopneumothorax, pneumothorax, injury to nerves, spinal cord, blood vessels, lymphatics or other vital organs (i.e., bowel injury, injury to the great vessels); heterotopic bone formation; complications related to the hardware such as screws, rods, including misplaced hardware, device failure, hardware fracture/breakage, or hardware loosening; retained surgical instrumentations or devices and the need for further surgery. - Medical risks of the planned surgery include but are not limited to generalized Infections to the whole body or local areas outside of the surgical site (sepsis), heart attack, bleeding, anaphylaxis, meningitis, seizure, epilepsy, hearing loss, burn moore, laceration of the head or other areas of the body, bruising, hypersensitivity of the skin, bladder over distension; allergic reaction; shoulder injury related to positioning; fat, blood and air clots to other areas of the body like heart, lungs, brain; failure of internal organs such as lungs, kidneys, liver and excessive bleeding. If blood transfusions are necessary, note that transfusions may cause intolerance reactions such as anaphylaxis or other complex reactions. Despite best efforts, the results of surgery might not heal in terms of bone, soft tissues such as skin, fascia, ligaments, and joints. [facility] has multiple operating rooms with single and overlapping rooms running daily. They currently function under the required guidelines as produced by the [employer] Committee with regards to the overlapping rooms and will continue to comply with changes to this policy as they occur. The requirements include and are complied with as follows: (1) the critical portions of the overlapping rooms will not occur at the same time, (2) the attending physician will be physically present during the critical portions of the procedure and immediately available during the entire case, and (3) a back-up attending is designated should the primary attending not be immediately available. The patient has had a chance to review all the listed information, has been given print outs detailing this information, and has had all his/her questions answered to their satisfaction. It was my pleasure to have seen and examined Casandra Marrero. In our visit today we have had a chance to go over my understanding of our patient's current condition, the natural course history without intervention and various interventional options. Questions were invited and answered, and the patient wishes to proceed as outlined above. I have seen and examined the patient for 25 minutes and we have spent more than 50% of the time in repeat and detailed counseling about the patient's condition, its natural course history with out and as much as can be predicted with surgery and re-review of various surgical treatment options. In conclusion, Casandra Marrero and requested we proceed with the above suggested surgery and are willing to accept risks and limitations of the suggested surgery as nature of the disease process and our best attempts at treatment for the condition. Thank you again for allowing us to be part of your patient's care. Please don't hesitate to contact me if you have any further questions. Signed and authenticated by: Lee Wu [facility] [address] [place] [id number] Description of Procedure: The patient was seen and examined in the preoperative area. All preoperative protocols were followed. Informed consent was obtained risks and benefits of the procedure were discussed at length. Risks including bleeding infection damage to the surrounding tissue and risk of reoperation were discussed with the patient. Risk of anesthesia up to and including was a discussed with the patient. These are outlined in the risk reviewed. They were willing to accept these risks and all of the risks of surgery. The patient was given a weight- based dose of antibiotics in the form of 2 g Ancef and weight-based dose gentamicin due to clinical grade 2 open fracture. The patient was seen and evaluated by the anesthesia team who deemed them fit for surgery. The site was marked, the patient was willing to proceed with the procedure. The patient was transferred to the operative suite by the Department of anesthesia. There were then drifted off to sleep by the department of anesthesia and spinal with sedation anesthesia was used. Once adequate anesthe thomas had been obtained the patient was carefully transferred to the operative bed. All bony prominences were padded accordingly. SCDs were placed on the nonoperative lower extremities. Arms were well padded. Right lower extremity was exposed and placed on of bone foam ramp hip bump was placed underneath the right hip Preoperative briefing was done with the operative team and everyone was ready for the procedure to start. The patients right leg was then prepped and draped in the normal sterile fashion. Timeout was then performed and all parties in agreement with the procedure to be performed. Fluoroscopy was then used for reduction of the right ankle skin neck were made over the anterior tibial surface and pins were placed for the tibial portion of the delta frame external fixator construct. These were placed off to me in the AP and lateral and bicortically. They had good purchase. We then placed the calcaneal pin medial to lateral in optimal position. We then placed a first metatarsal pin again using fluoroscopy for all these. Once all pins were in position the delta frame was built the ankle was then reduced and held in reduction while the frame was tightened thoroughly. AP and lateral fluoroscopic imaging confirmed good reduction with good reduction of the tibiotalar joint as well as of the lateral malleolus and syndesmotic injury. The pin sites are clean thoroughly as well as the medial wound which was impending open and was not completely through the skin but due to the nature of this fracture and the severity of likely soft tissue stripping underneath this was classified as grade 2 open type fracture. We then built a kickstand for the patient's heel. This is to offload the heel and aid with elevation and swelling. All of the set screws were final tightened. We then placed Adaptic and 4 x 4's on the pin sites after cleaning the entire construct was then wrapped with Kerlix and an Jesús wrap. The patient was then transferred back to their hospital bed. There were awakened by department of anesthesia having tolerated the procedure very well with no complications. The patient was then transported to the postoperative care unit in stable condition.
[2024-05-16 07:50] LABS: Basophils % (A) 0 %; Eosinophils # (A) 0.1 k/uL (0-0.7); Eosinophils % (A) 2 %; HCT 35.1 % (34.0-46.0); Hypochromasia Moderate; Lymphocytes # (A) 0.8 k/uL (1.0-4.8); Lymphocytes % (A) 11 %; MCHC 31.5 g/dL (31.0-37.0); MCV 95.2 fL (80.0-100.0); Mean Platelet Volume 6.6; Monocytes # (A) 0.5 k/uL (0-1.0); Monocytes % (A) 7 %; Neutrophils # (A) 5.4 k/uL (1.3-7.7); Neutrophils % (A) 78 %; Platelet Count 195 k/uL (150-450); RBC 3.68 m/uL (3.80-5.40); RDW 12.6 % (11.5-15.5); WBC 6.9 k/uL (3.8-10.6)
[2024-05-16 08:17] LABS: ALT 15 U/L (4-34); AST 22 U/L (14-36); African American GFR (CKD) 53 (>60 ml/min/1.73 sqM); Albumin 3.2 g/dL (3.5-5.0); Albumin/Globulin Ratio 1.6; Alkaline Phosphatase 41 U/L (38-126); Anion Gap 6 mmol/L; Blood Urea Nitrogen 26 mg/dL (7-17); Calcium 8.5 mg/dL (8.4-10.2); Carbon Dioxide 21 mmol/L (22-30); Chloride 106 mmol/L (98-107); Glucose 105 mg/dL (74-99); Non-African American GFR(CKD) 46 (>60 ml/min/1.73 sqM); Potassium 4.7 mmol/L (3.5-5.1); Sodium 133 mmol/L (137-145); Total Bilirubin 0.4 mg/dL (0.2-1.3); Total Protein 5.2 g/dL (6.3-8.2)
[2024-05-16] MEDS: DULoxetine HCL 30 MG CAPSULE.DR PO SCH (08:32)
[2024-05-16] MEDS: PANTOPRAZOLE 40 MG TABLET PO SCH (08:32)
[2024-05-16] MEDS: ASPIRIN 325 MG TAB PO SCH (08:32)
[2024-05-16] MEDS: HYDROmorphone 0.5 MG/0.5 ML SYRINGE IVP PRN (09:54)
--- NOTE | 2024-05-16 13:30 | P.CON ---
Consult Note - . Consult date: 05/16/24 Assessment/Plan:: Hospital Course: kristi is a 83-year-old female who sustained a fall earlier today was diagnosed with grade 2 open fracture dislocation right ankle. She subsequently underwent an emergent closed reduction and external fixation of the right ankle earlier last night by Dr. Taylor. She is currently being seen in the surgical unit for consultation for medical management. No intraoperative complications were reported. Estimated blood loss of 10 cc. Patient was seen at bedside. Currently endorses sever pain in her right ankle. Patient has not attempted to ambulate as of yet. Pertinent Imaging: [] Subjective: [] Pertinent positives and negatives as discussed above, a complete review of systems was performed and all other systems are negative. Vitals Signs Reviewed. General: [nontoxic], [no distress], [appears at stated age] Derm: [warm], [dry] Head: [atraumatic], [normocephalic], [symmetric] Eyes: [EOMI], [no lid lag], [anicteric sclera] Mouth: [no lip lesion], [mucus membranes moist] Cardiovascular: [S1S2 reg], [no murmur] Lungs: [CTA bilateral], [no rhonchi, no rales] , [no accessory muscle use] Abdominal: [soft], [ nontender to palpation], [no guarding], [no appreciable organomegaly] Ext: Surgical dressing noted on the right ankle, soaked with blood Neuro: [ CN II-XI grossly intact], [no focal neuro deficits] Psych: [Alert], [oriented], [appropriate affect] Data Reviewed Today: Pertinent Labs: Hemoglobin remained stable at 11.0, no leukocytosis, thrombocytes normal, hyponatremia 1 35-1 33 today, creatinine stable 1.12, Assessment and Plan: Right ankle fracture status post closed reduction and external fixation 05/15/2024 -Pain management, DVT prophylaxis per primary team -Incentive spirometry -PT OT -Monitor CBC Acute euvolemic hyponatremia -Continue with NS at 75 cc/h, monitor BMP [Chronic:] CKD stage III: Creatinine at baseline, monitor BMP GERD: Continue PPI HLD: Continue statins Hypothyroidism: Continue levothyroxine DVT ppx: Per Ortho
[2024-05-16] MEDS: CYCLOBENZAPRINE 10 MG TAB PO PRN (13:42)
[2024-05-16] MEDS: oxyCODONE-APAP 5-325MG 1 EACH TAB PO PRN (13:43)
--- NOTE | 2024-05-16 17:23 | P.PN ---
Progress Note - Text Progress Note Date: 05/16/24 CT reviewed. Pt has complex trimal fracture dislocation impending open medially with large medial/posterior extending comminuted fragment with lateral malleolus fracture and syndesmotic injury. Currently stable in Ex Fix. Discussed case with Dr. Barahona, Ortho Trauma MAC. Also, discussed with pt and . We will transfer her to [facility] for higher level of care due to complexity of fracture case, need for orthopedic trauma care for appropriate treatment of fracture for optimal patient outcome. She is amendable to this. We will start transfer to [facility] for care.
--- NOTE | 2024-05-16 17:41 | P.PN ---
Subjective Progress Note Date: 05/16/24 Principal diagnosis: Right ankle fracture dislocation trimalleolar grade 2 open s/p FFS Patient and were present during encounter this morning on 4 S. and nurse was present during encounter. Patient states she has been in a lot of pain and is wondering if she can have any increase or adjustment in her pain medication. Patient states most of the pain is located just distal to the right knee where her external fixation device is located on the right lower extremity. Patient denies any other significant areas of pain at this time. Objective - Vital Signs Vital signs: Vital Signs Temp 99.3 F 05/16/24 07:41 Pulse 66 05/16/24 07:41 Resp 18 05/16/24 07:41 BP 98/57 05/16/24 07:41 Pulse Ox 94 L 05/16/24 07:41 FiO2 Intake & Output 05/15/24 05/16/24 05/16/24 18:59 06:59 18:59 Intake Total 1280 Output Total 360 Balance 920 Weight 66.678 kg 66.678 kg Intake: IV 800 Oral 480 Output: Urine 350 Estimated Blood Loss 10 - Exam External fixation devices present to the right lower extremity. Dressing was taken down at bedside this morning. Pin sites appear to be clean. Pin sites were cleaned with alcohol swab by nursing. There was some moderate serosanguineous drainage over the 2 pins over the proximal anterior tibia. Area was cleaned with saline and 4 x 4's. New Adaptic, 4 x 4's ABDs Kerlix and Jesús bandage was placed over external fixation device. Patient does have good sensation throughout the right foot. Cap refill under 3 seconds in digits in the right foot. There is moderate to significant tenderness to patient extending distally from the right knee near the portal sites where the pins are placed. Nontender to palpation throughout rest of extremities on exam. Patient does have limited range of motion of the right lower extremity from the knee to the foot secondary to pain and external fixation device in place. Patient is able to flex and extend the hip on the right lower extremity. Patient does have good range of motion throughout the left lower extremity and bilateral upper extremities on exam. Radial pulse intact, 2+ bilaterally. Negative Homans bilaterally. - Labs CBC & Chem 7: 05/16/24 07:33 05/16/24 07:33 Labs: Abnormal Lab Results - Last 24 Hours (Table) 12/26/24 12/26/24 12/26/24 Range/Units 18:09 18:09 18:09 RBC (4.10-5.20) X 10*6/uL Hgb (12.0-15.0) g/dL Hct (37.2-46.3) % MCHC (32.0-37.0) g/dL MPV (9.5-12.2) FL Lymphocytes # 0.9 L (1.0-4.8) k/uL Monocytes # (0.20-1.00) X 10*3/uL APTT 20.3 L (22.0-30.0) sec Sodium 135 L (137-145) mmol/L Carbon Dioxide (22-30) mmol/L BUN 32 H (7-17) mg/dL Creatinine 1.21 H (0.52-1.04) mg/dL Glucose (74-99) mg/dL Total Protein 5.7 L (6.3-8.2) g/dL Albumin (3.5-5.0) g/dL 05/15/24 05/16/24 05/16/24 Range/Units 22:14 07:33 07:33 RBC 3.89 L 3.68 L (4.10-5.20) X 10*6/uL Hgb 11.3 L 11.0 L (12.0-15.0) g/dL Hct 36.9 L (37.2-46.3) % MCHC 30.6 L (32.0-37.0) g/dL MPV 9.4 L (9.5-12.2) FL Lymphocytes # 0.8 L (1.0-4.8) k/uL Monocytes # 1.09 H (0.20-1.00) X 10*3/uL APTT (22.0-30.0) sec Sodium 133 L (137-145) mmol/L Carbon Dioxide 21 L (22-30) mmol/L BUN 26 H (7-17) mg/dL Creatinine 1.12 H (0.52-1.04) mg/dL Glucose 105 H (74-99) mg/dL Total Protein 5.2 L (6.3-8.2) g/dL Albumin 3.2 L (3.5-5.0) g/dL Assessment and Plan Assessment: Right ankle fracture dislocation trimalleolar grade 2 open s/p FFS Postop day 1 status post: 1. RIGHT ANKLE CLOSED REDUCTION WITH EXTERNAL FIXATION PLACEMENT 2. RIGHT ANKLE INSTRUMENTATION, EXTERNAL FIXATION Plan: 1. Right ankle fracture dislocation trimalleolar grade 2 open -right ankle closed reduction with external fixation placement; right ankle instrumentation, external fixation surgery performed yesterday, , 05/15/2024. Patient stable at bedside this morning on 4 S. with external fixation device present over right lower extremity. Postoperative dressing was taken down pin sites were cleaned by nursing and new dressing was placed over the device. There was some saturation of the postoperative dressing over the proximal tibial pins. Patient to be nonweightbearing to the right lower extremity at this time. Pt has complex trimal fracture dislocation impending open medially with large medial/posterior extending comminuted fragment with lateral malleolus fracture and syndesmotic injury. Currently stable in Ex Fix. Discussed case with Dr. Barahona, Ortho Trauma [facility] [place]. Also, discussed with pt and . We will transfer her to [facility] for higher level of care due to complexity of fracture case, need for orthopedic trauma care for appropriate treatment of fracture for optimal patient outcome. She is amendable to this. We will start transfer to [facility] for care. 2. Appreciate medical management 3. Pain management -Percocet; Flexeril; gabapentin 4. DVT prophylaxis -aspirin 5. GI prophylaxis -senna 6. PT/OT -nonweightbearing right lower extremity 7. Encourage incentive spirometer use 8. Discharge planning -staff on 4 S. is in process of transferring patient to [facility]. Dr. Barahona accepting patient at [facility]. Time with Patient: Less than 30
[2024-05-16] MEDS: HYDROcodone/APAP 10-325MG 1 EACH TAB PO SCH (18:20)
[2024-05-16] MEDS: CYCLOBENZAPRINE 10 MG TAB PO SCH (18:20)
[2024-05-16] MEDS: GABAPENTIN 100 MG CAP PO SCH (18:20)
[2024-05-17 09:13] LABS: Basophils # (A) 0.02 X 10*3/uL (0.00-0.10); Basophils % (A) 0.2 %; Eosinophils # (A) 0.32 X 10*3/uL (0.04-0.35); Eosinophils % (A) 3.8 %; HCT 34.7 % (37.2-46.3); HGB 10.9 g/dL (12.0-15.0); Lymphocytes # (A) 0.98 X 10*3/uL (0.90-5.00); Lymphocytes % (A) 11.5 %; MCH 29.2 pg (27.0-32.0); MCHC 31.4 g/dL (32.0-37.0); Mean Platelet Volume 9.4 FL (9.5-12.2); Monocytes # (A) 1.09 X 10*3/uL (0.20-1.00); Monocytes % (A) 12.8 %; NRBC Per 100 WBC 0 X 10*3/uL (0.00-0.01); Neutrophils # (A) 6.09 X 10*3/uL (1.80-7.70); Neutrophils % (A) 71.3 %; Platelet Count 176 X 10*3/uL (140-440); RBC 3.73 X 10*6/uL (4.10-5.20); RDW 13.1 % (11.5-14.5); WBC 8.53 X 10*3/uL (4.50-10.00)
[2024-05-17] MEDS: atenoloL 50 MG TAB PO SCH (09:22)
[2024-05-17 09:45] LABS: BUN/Creat Ratio 21.82 Ratio (12.00-20.00); Calcium 8.4 mg/dL (8.7-10.3); Carbon Dioxide 22.4 mmol/L (21.6-31.8); Chloride 100 mmol/L (96-109); Glucose 118 mg/dL (70-110); Potassium 4.9 mmol/L (3.5-5.5); Sodium 132 mmol/L (135-145)
--- NOTE | 2024-05-17 12:52 | P.PN ---
Subjective Progress Note Date: 05/17/24 Subjective: Patient seen and examined at bedside. No acute events overnight. Pertinent positives and negatives as discussed above, a complete review of systems was performed and all other systems are negative. Vitals Signs Reviewed. General: Nontoxic, no distress, appears at stated age Derm: Warm, dry Head: Atraumatic, normocephalic, symmetric Eyes: EOMI, no lid lag, anicteric sclera Mouth: No lip lesion, mucus membranes moist Cardiovascular: S1S2 reg, no murmur Lungs: CTA bilateral, no rhonchi, no rales, no accessory muscle use Abdominal: Soft, nontender to palpation, no guarding, no appreciable organomegaly Ext: No gross muscle atrophy, no edema, no contractures, right ankle/foot and external fixation device, covered in dressing Neuro: CN II-XI grossly intact, no focal neuro deficits Psych: Alert, oriented, appropriate affect Data Reviewed Today: Pertinent Labs: WBC 8.53, hemoglobin 10.9, sodium 132, creatinine 1.1 Imaging: No new imaging Assessment and Plan: Active: Right ankle fracture with dislocation status post external fixation -Orthopedic surgery planning for transfer -On oral [place] as needed, gabapentin 100 3 times daily, Flexeril 10 3 times daily, IV Dilaudid as needed, monitor for sedation -Bowel regimen and DVT prophylaxis per orthopedics Normocytic anemia -Likely in the setting of acute illness -No active bleeding Euvolemic hyponatremia -Continue to follow, hold off further IV fluids Hypertension -Continue atenolol 50 twice daily, hydralazine 50 3 times daily, losartan 100 daily Hypothyroidism -Continue levothyroxine 100 mcg daily Depression/anxiety -Continue duloxetine 30 mg daily, amitriptyline 20 nightly GERD -Continue pantoprazole 40 daily Thank you for allowing us to participate in the care of this pleasant patient. Do not hesitate to contact us with questions. Someone can be reached from the [facility] hospitalist group all hours of the day at [phone] or via perfect serve. Objective - Vital Signs Vital signs: Vital Signs Temp 98.2 F 05/17/24 08:00 Pulse 75 05/17/24 08:00 Resp 16 05/17/24 08:00 BP 145/79 05/17/24 08:00 Pulse Ox 93 L 05/17/24 08:00 FiO2 Intake & Output 05/16/24 05/17/24 05/17/24 18:59 06:59 18:59 Output Total 500 400 Balance -500 -400 Output: Urine 500 400 Other: Voiding Method External Catheter External Catheter - Labs CBC & Chem 7: 05/17/24 03:45 05/17/24 03:45 Labs: Abnormal Lab Results - Last 24 Hours (Table) 05/17/24 05/17/24 Range/Units 03:45 03:45 RBC 3.73 L (4.10-5.20) X 10*6/uL Hgb 10.9 L (12.0-15.0) g/dL Hct 34.7 L (37.2-46.3) % MCHC 31.4 L (32.0-37.0) g/dL MPV 9.4 L (9.5-12.2) FL Monocytes # 1.09 H (0.20-1.00) X 10*3/uL Sodium 132 L (135-145) mmol/L Est GFR (CKD-EPI) 50 L (>=60) BUN/Creatinine Ratio 21.82 H (12.00-20.00) Ratio Glucose 118 H (70-110) mg/dL Calcium 8.4 L (8.7-10.3) mg/dL
[2024-05-17] MEDS: AMITRIPTYLINE HCL 10 MG TAB PO SCH (22:00)
[2024-05-18 09:47] LABS: Basophils # (A) 0.03 X 10*3/uL (0.00-0.10); Basophils % (A) 0.3 %; Eosinophils # (A) 0.48 X 10*3/uL (0.04-0.35); Eosinophils % (A) 5.5 %; HCT 32.6 % (37.2-46.3); HGB 10.6 g/dL (12.0-15.0); Lymphocytes # (A) 1.18 X 10*3/uL (0.90-5.00); Lymphocytes % (A) 13.6 %; MCH 29.8 pg (27.0-32.0); MCHC 32.5 g/dL (32.0-37.0); MCV 91.6 FL (80.0-97.0); Mean Platelet Volume 9.9 FL (9.5-12.2); Monocytes # (A) 1.04 X 10*3/uL (0.20-1.00); NRBC Per 100 WBC 0 X 10*3/uL (0.00-0.01); Neutrophils # (A) 5.92 X 10*3/uL (1.80-7.70); Neutrophils % (A) 68.3 %; Platelet Count 205 X 10*3/uL (140-440); RBC 3.56 X 10*6/uL (4.10-5.20); WBC 8.68 X 10*3/uL (4.50-10.00)
[2024-05-18 10:01] LABS: BUN/Creat Ratio 21.25 Ratio (12.00-20.00); Blood Urea Nitrogen 25.5 mg/dL (9.0-27.0); Calcium 8.3 mg/dL (8.7-10.3); Carbon Dioxide 23.1 mmol/L (21.6-31.8); Chloride 100 mmol/L (96-109); Glucose 104 mg/dL (70-110); Potassium 4.8 mmol/L (3.5-5.5); Sodium 131 mmol/L (135-145)
--- NOTE | 2024-05-18 11:54 | P.PN ---
Subjective Progress Note Date: 05/18/24 Principal diagnosis: Right ankle fracture dislocation trimalleolar grade 2 open s/p FFS Patient was seen at bedside this morning sitting up in chair with legs elevated and pillow beneath right lower extremity with external fixation device present to right lower extremity. Patient says there is improvement in regards to the pain in the right lower extremity. She does seem to be somewhat groggy during encounter.Patient states most of the pain is located just distal to the right knee where her external fixation device is located on the right lower extremity. Patient denies any other significant areas of pain at this time. Patient is hoping to be transferred to [facility]. Staff on 4 S. working on this transfer. Objective - Vital Signs Vital signs: Vital Signs Temp 98.7 F 05/18/24 07:24 Pulse 86 05/18/24 07:24 Resp 15 05/18/24 07:24 BP 110/52 05/18/24 07:24 Pulse Ox 93 L 05/18/24 07:24 FiO2 Intake & Output 05/17/24 05/18/24 05/18/24 18:59 06:59 18:59 Intake Total 480 Output Total 950 Balance 480 -950 Intake: Oral 480 Output: Urine 950 Other: Voiding Method External Catheter External Catheter - Exam External fixation devices present to the right lower extremity. Jesús bandage appears to be clean, dry, intact on exam today. Maintain dressing clean, dry, intact. Nursing to clean pin sites with alcohol daily. Patient does have good sensation throughout the right foot. Cap refill under 3 seconds in digits in the right foot. There is moderate to significant tenderness to patient extending distally from the right knee near the portal sites where the pins are placed. Nontender to palpation throughout rest of extremities on exam. Patient does have limited range of motion of the right lower extremity from the knee to the foot secondary to pain and external fixation device in place. Patient is able to flex and extend the hip on the right lower extremity. Patient does have good range of motion throughout the left lower extremity and bilateral upper extremities on exam. Radial pulse intact, 2+ bilaterally. Negative Homans bilaterally. - Labs CBC & Chem 7: 05/18/24 04:01 05/18/24 04:01 Labs: Abnormal Lab Results - Last 24 Hours (Table) 05/18/24 05/18/24 Range/Units 04:01 04:01 RBC 3.56 L (4.10-5.20) X 10*6/uL Hgb 10.6 L (12.0-15.0) g/dL Hct 32.6 L (37.2-46.3) % Monocytes # 1.04 H (0.20-1.00) X 10*3/uL Eosinophils # 0.48 H (0.04-0.35) X 10*3/uL Sodium 131 L (135-145) mmol/L Est GFR (CKD-EPI) 45 L (>=60) BUN/Creatinine Ratio 21.25 H (12.00-20.00) Ratio Calcium 8.3 L (8.7-10.3) mg/dL Assessment and Plan Assessment: Right ankle fracture dislocation trimalleolar grade 2 open s/p FFS Postop day 3 status post: 1. RIGHT ANKLE CLOSED REDUCTION WITH EXTERNAL FIXATION PLACEMENT 2. RIGHT ANKLE INSTRUMENTATION, EXTERNAL FIXATION Plan: 1. Right ankle fracture dislocation trimalleolar grade 2 open -right ankle close d reduction with external fixation placement; right ankle instrumentation, external fixation surgery performed , 05/15/2024. Patient stable at bedside this morning on 4 S. with external fixation device present over right lower extremity. Dressing appears to be clean, dry, intact over external fixation device present to the right lower extremity. Patient to be nonweightbearing to the right lower extremity at this time. Nursing to clean pin sites daily with alcohol. Pt has complex trimal fracture dislocation impending open medially with large medial/posterior extending comminuted f ragment with lateral malleolus fracture and syndesmotic injury. Currently stable in Ex Fix. Discussed case with Dr. Barahona, [place] [facility] [place] Also, discussed with pt and . We will transfer her [place] [facility] [place] due to complexity of fracture case, need for orthopedic trauma care for appropriate treatment of fracture for optimal patient outcome. She is amendable to this. We will start transfer [place] [facility] [place]. 2. Appreciate medical management 3. Pain management -Percocet; Flexeril; gabapentin 4. DVT prophylaxis -aspirin 5. GI prophylaxis -senna 6. PT/OT -nonweightbearing right lower extremity 7. Encourage incentive spirometer use 8. Discharge planning -staff on 4 S. is in process of transferring patient to [facility]. Dr. Barahona accepting patient at [facility]. Time with Patient: Less than 30
--- NOTE | 2024-05-18 12:18 | P.PN ---
Subjective Progress Note Date: 05/18/24 Subjective: Patient seen and examined at bedside. No acute events overnight. Pertinent positives and negatives as discussed above, a complete review of systems was performed and all other systems are negative. Vitals Signs Reviewed. General: Nontoxic, no distress, appears at stated age Derm: Warm, dry Head: Atraumatic, normocephalic, symmetric Eyes: EOMI, no lid lag, anicteric sclera Mouth: No lip lesion, mucus membranes moist Cardiovascular: S1S2 reg, no murmur Lungs: CTA bilateral, no rhonchi, no rales, no accessory muscle use Abdominal: Soft, nontender to palpation, no guarding, no appreciable organomegaly Ext: No gross muscle atrophy, no edema, no contractures, right ankle/foot and external fixation device, covered in dressing Neuro: CN II-XI grossly intact, no focal neuro deficits Psych: Alert, oriented, appropriate affect Data Reviewed Today: Pertinent Labs: WBC 8.68, hemoglobin 10.6, sodium 131, creatinine 1.2 Imaging: No new imaging Assessment and Plan: Active: Right ankle fracture with dislocation status post external fixation -Orthopedic surgery planning for transfer -On oral [place] as needed, gabapentin 100 3 times daily, Flexeril 10 3 times daily, IV Dilaudid as needed, monitor for sedation -Bowel regimen and DVT prophylaxis per orthopedics Normocytic anemia -Likely in the setting of acute illness -No active bleeding Euvolemic hyponatremia -Continue to follow, hold off further IV fluids -Urine sodium and urine osmolality pending -TSH pending Hypertension -Continue atenolol 50 twice daily, hydralazine 50 3 times daily, losartan 100 daily Hypothyroidism -Continue levothyroxine 100 mcg daily Depression/anxiety -Continue duloxetine 30 mg daily, amitriptyline 20 nightly GERD -Continue pantoprazole 40 daily Thank you for allowing us to participate in the care of this pleasant patient. Do not hesitate to contact us with questions. Someone can be reached from the [facility] hospitalist group all hours of the day at [phone] or via perfect serve. Objective - Vital Signs Vital signs: Vital Signs Temp 98.7 F 05/18/24 07:24 Pulse 86 05/18/24 07:24 Resp 15 05/18/24 07:24 BP 110/52 05/18/24 07:24 Pulse Ox 93 L 05/18/24 07:24 FiO2 Intake & Output 05/17/24 05/18/24 05/18/24 18:59 06:59 18:59 Intake Total 480 Output Total 950 Balance 480 -950 Intake: Oral 480 Output: Urine 950 Other: Voiding Method External Catheter External Catheter - Labs CBC & Chem 7: 05/18/24 04:01 05/18/24 04:01 Labs: Abnormal Lab Results - Last 24 Hours (Table) 05/18/24 05/18/24 Range/Units 04:01 04:01 RBC 3.56 L (4.10-5.20) X 10*6/uL Hgb 10.6 L (12.0-15.0) g/dL Hct 32.6 L (37.2-46.3) % Monocytes # 1.04 H (0.20-1.00) X 10*3/uL Eosinophils # 0.48 H (0.04-0.35) X 10*3/uL Sodium 131 L (135-145) mmol/L Est GFR (CKD-EPI) 45 L (>=60) BUN/Creatinine Ratio 21.25 H (12.00-20.00) Ratio Calcium 8.3 L (8.7-10.3) mg/dL
[2024-05-18] MEDS: HYDROcodone/APAP 7.5-325MG 1 EACH TAB PO PRN (23:34)
[2024-05-19 09:16] LABS: HCT 34.4 % (37.2-46.3); HGB 10.7 g/dL (12.0-15.0); MCHC 31.1 g/dL (32.0-37.0); MCV 93.2 FL (80.0-97.0); Mean Platelet Volume 9.9 FL (9.5-12.2); NRBC Per 100 WBC 0 X 10*3/uL (0.00-0.01); Platelet Count 202 X 10*3/uL (140-440); RBC 3.69 X 10*6/uL (4.10-5.20); RDW 12.9 % (11.5-14.5); WBC 8.49 X 10*3/uL (4.50-10.00)
[2024-05-19 09:17] LABS: Basophils # (A) 0.03 X 10*3/uL (0.00-0.10); Basophils % (A) 0.4 %; Eosinophils # (A) 0.41 X 10*3/uL (0.04-0.35); Eosinophils % (A) 4.8 %; Lymphocytes # (A) 0.83 X 10*3/uL (0.90-5.00); Lymphocytes % (A) 9.8 %; Monocytes # (A) 1.08 X 10*3/uL (0.20-1.00); Monocytes % (A) 12.7 %; Neutrophils % (A) 71.8 %
[2024-05-19 09:41] LABS: Blood Urea Nitrogen 32.2 mg/dL (9.0-27.0); Calcium 8.2 mg/dL (8.7-10.3); Carbon Dioxide 22.5 mmol/L (21.6-31.8); Chloride 98 mmol/L (96-109); Glucose 98 mg/dL (70-110); Sodium 130 mmol/L (135-145)
--- NOTE | 2024-05-19 11:50 | P.PN ---
Subjective Progress Note Date: 05/19/24 Principal diagnosis: Right ankle fracture dislocation trimalleolar grade 2 open s/p FFS Patient was seen at bedside this morning sitting up in chair with legs elevated and pillow beneath right lower extremity with external fixation device present to right lower extremity. Patient says there is improvement in regards to the pain in the right lower extremity. Patient states most of the pain is located just distal to the right knee where her external fixation device is located on the right lower extremity. Patient denies any other significant areas of pain at this time. Patient is hoping to be transferred to [facility]. Staff on 4 S. working on this transfer. Objective - Vital Signs Vital signs: Vital Signs Temp 97.7 F 05/19/24 07:17 Pulse 59 L 05/19/24 07:17 Resp 18 05/19/24 09:00 BP 128/78 05/19/24 07:17 Pulse Ox 94 L 05/19/24 07:17 FiO2 Intake & Output 05/18/24 05/19/24 05/19/24 18:59 06:59 18:59 Intake Total 1000 Output Total 700 850 Balance 300 -850 Intake: Oral 1000 Output: Urine 700 850 Straight 700 850 Other: Voiding Method External Catheter External Catheter # Bowel Movements 0 - Exam External fixation devices present to the right lower extremity. Jesús bandage appears to be clean, dry, intact on exam today. Maintain dressing clean, dry, intact. Nursing to clean pin sites with alcohol daily. Patient does have good sensation throughout the right foot. Cap refill under 3 seconds in digits in the right foot. There is moderate to significant tenderness to patient extending distally from the right knee near the portal sites where the pins are placed. Nontender to palpation throughout rest of extremities on exam. Patient does have limited range of motion of the right lower extremity from the knee to the foot secondary to pain and external fixation device in place. Patient is able to flex and extend the hip on the right lower extremity. Patient does have good range of motion throughout the left lower extremity and bilateral upper extremities on exam. Radial pulse intact, 2+ bilaterally. Negative Homans bilaterally. - Labs CBC & Chem 7: 05/19/24 03:03 05/19/24 03:03 Labs: Abnormal Lab Results - Last 24 Hours (Table) 05/19/24 05/19/24 05/19/24 Range/Units 03:03 03:03 04:00 RBC 3.69 L (4.10-5.20) X 10*6/uL Hgb 10.7 L (12.0-15.0) g/dL Hct 34.4 L (37.2-46.3) % MCHC 31.1 L (32.0-37.0) g/dL Lymphocytes # 0.83 L (0.90-5.00) X 10*3/uL Monocytes # 1.08 H (0.20-1.00) X 10*3/uL Eosinophils # 0.41 H (0.04-0.35) X 10*3/uL Sodium 130 L (135-145) mmol/L BUN 32.2 H (9.0-27.0) mg/dL Est GFR (CKD-EPI) 38 L (>=60) BUN/Creatinine Ratio 23.00 H (12.00-20.00) Ratio Calcium 8.2 L (8.7-10.3) mg/dL Urine Osmolality 309 L (400-1100) mOsm/kg Ur Random Sodium (40-220) mmol/L 05/19/24 Range/Units 04:00 RBC (4.10-5.20) X 10*6/uL Hgb (12.0-15.0) g/dL Hct (37.2-46.3) % MCHC (32.0-37.0) g/dL Lymphocytes # (0.90-5.00) X 10*3/uL Monocytes # (0.20-1.00) X 10*3/uL Eosinophils # (0.04-0.35) X 10*3/uL Sodium (135-145) mmol/L BUN (9.0-27.0) mg/dL Est GFR (CKD-EPI) (>=60) BUN/Creatinine Ratio (12.00-20.00) Ratio Calcium (8.7-10.3) mg/dL Urine Osmolality (400-1100) mOsm/kg Ur Random Sodium <20 L (40-220) mmol/L Assessment and Plan Assessment: Right ankle fracture dislocation trimalleolar grade 2 open s/p FFS Postop day 4 status post: 1. RIGHT ANKLE CLOSED REDUCTION WITH EXTERNAL FIXATION PLACEMENT 2. RIGHT ANKLE INSTRUMENTATION, EXTERNAL FIXATION Plan: 1. Right ankle fracture dislocation trimalleolar grade 2 open -right ankle closed reduction with external fixation placement; right ankle instrumentation, external fixation surgery performed , 05/15/2024. Patient stable at bedside this morning on 4 S. with external fixation device present over right lower extremity. Dressing appears to be clean, dry, intact over external fixation device present to the right lower extremity. Patient to be nonweightbearing to the right lower extremity at this time. Nursing to clean pin sites daily with alcohol. Pt has complex trimal fracture dislocation impending open medially with large medial/posterior extending comminuted fragment with lateral malleolus fracture and syndesmotic injury. Currently stable in Ex Fix. Discussed case with Dr. Barahona, Ortho Trauma [facility] [place] [place]. Also, discussed with pt and . We will transfer her to [facility] [place] [place] for higher level of care due to complexity of fracture case, need for orthopedic trauma care for appropriate treatment of fracture for optimal patient outcome. She is amendable to this. Nursing and case management working on transfer of patient to [facility] 2. Appreciate medical management 3. Pain management -Percocet; Flexeril; gabapentin 4. DVT prophylaxis -aspirin 5. GI prophylaxis -senna 6. PT/OT -nonweightbearing right lower extremity 7. Encourage incentive spirometer use 8. Discharge planning -staff on 4 S. is in process of transferring patient to [facility]. Dr. Barahona accepting patient at [facility]. Time with Patient: Less than 30
--- NOTE | 2024-05-19 12:01 | P.PN ---
Subjective Progress Note Date: 05/19/24 Subjective: Patient seen and examined at bedside. No acute events overnight. Pertinent positives and negatives as discussed above, a complete review of systems was performed and all other systems are negative. Vitals Signs Reviewed. General: Nontoxic, no distress, appears at stated age Derm: Warm, dry Head: Atraumatic, normocephalic, symmetric Eyes: EOMI, no lid lag, anicteric sclera Mouth: No lip lesion, mucus membranes moist Cardiovascular: S1S2 reg, no murmur Lungs: CTA bilateral, no rhonchi, no rales, no accessory muscle use Abdominal: Soft, nontender to palpation, no guarding, no appreciable organomegaly Ext: No gross muscle atrophy, no edema, no contractures, right ankle/foot and external fixation device, covered in dressing Neuro: CN II-XI grossly intact, no focal neuro deficits Psych: Alert, oriented, appropriate affect Data Reviewed Today: Pertinent Labs: WBC 8.49, hemoglobin 10.7, sodium 130, creatinine 1.4, urine osmolality 309, urine sodium less than 20, TSH 4.39 Imaging: No new imaging Assessment and Plan: Active: Right ankle fracture with dislocation status post external fixation -Orthopedic surgery note reviewed, planning for transfer -On oral [place] as needed, gabapentin 100 3 times daily, Flexeril 10 3 times daily, IV Dilaudid as needed, monitor for sedation -Bowel regimen and DVT prophylaxis per orthopedics Normocytic anemia -Likely in the setting of acute illness -No active bleeding Hyponatremia, possibly hypovolemic -Based on urine studies as well as patient's overall clinical picture, patient has been diet negative for the last few days, will give normal saline at 75 cc an hour -Repeat BMP in the afternoon Hypertension -Continue atenolol 50 twice daily, hydralazine 50 3 times daily, losartan 100 daily Hypothyroidism -Continue levothyroxine 100 mcg daily Depression/anxiety -Continue duloxetine 30 mg daily, amitriptyline 20 nightly GERD -Continue pantoprazole 40 daily Thank you for allowing us to participate in the care of this pleasant patient. Do not hesitate to contact us with questions. Someone can be reached from the [facility] hospitalist group all hours of the day at [phone] or via perfect serve. Objective - Vital Signs Vital signs: Vital Signs Temp 97.7 F 05/19/24 07:17 Pulse 59 L 12/30/24 07:17 Resp 18 05/19/24 09:00 BP 128/78 05/19/24 07:17 Pulse Ox 94 L 05/19/24 07:17 FiO2 Intake & Output 05/18/24 05/19/24 05/19/24 18:59 06:59 18:59 Intake Total 1000 Output Total 700 850 Balance 300 -850 Intake: Oral 1000 Output: Urine 700 850 Straight 700 850 Other: Voiding Method External Catheter External Catheter # Bowel Movements 0 - Labs CBC & Chem 7: 05/19/24 03:03 05/19/24 03:03 Labs: Abnormal Lab Results - Last 24 Hours (Table) 05/19/24 05/19/24 05/19/24 Range/Units 03:03 03:03 04:00 RBC 3.69 L (4.10-5.20) X 10*6/uL Hgb 10.7 L (12.0-15.0) g/dL Hct 34.4 L (37.2-46.3) % MCHC 31.1 L (32.0-37.0) g/dL Lymphocytes # 0.83 L (0.90-5.00) X 10*3/uL Monocytes # 1.08 H (0.20-1.00) X 10*3/uL Eosinophils # 0.41 H (0.04-0.35) X 10*3/uL Sodium 130 L (135-145) mmol/L BUN 32.2 H (9.0-27.0) mg/dL Est GFR (CKD-EPI) 38 L (>=60) BUN/Creatinine Ratio 23.00 H (12.00-20.00) Ratio Calcium 8.2 L (8.7-10.3) mg/dL Urine Osmolality 309 L (400-1100) mOsm/kg Ur Random Sodium (40-220) mmol/L 05/19/24 Range/Units 04:00 RBC (4.10-5.20) X 10*6/uL Hgb (12.0-15.0) g/dL Hct (37.2-46.3) % MCHC (32.0-37.0) g/dL Lymphocytes # (0.90-5.00) X 10*3/uL Monocytes # (0.20-1.00) X 10*3/uL Eosinophils # (0.04-0.35) X 10*3/uL Sodium (135-145) mmol/L BUN (9.0-27.0) mg/dL Est GFR (CKD-EPI) (>=60) BUN/Creatinine Ratio (12.00-20.00) Ratio Calcium (8.7-10.3) mg/dL Urine Osmolality (400-1100) mOsm/kg Ur Random Sodium <20 L (40-220) mmol/L
[2024-05-19] MEDS: HYDROcodone/APAP 10-325MG 1 EACH TAB PO PRN (12:56)
[2024-05-19] MEDS: SODIUM CHLORIDE 0.9% 1,000 ML IV SCH (13:47)
[2024-05-19 19:16] LABS: African American GFR (CKD) 40 (>60 ml/min/1.73 sqM); Anion Gap 6 mmol/L; Blood Urea Nitrogen 37 mg/dL (7-17); Calcium 8.3 mg/dL (8.4-10.2); Carbon Dioxide 27 mmol/L (22-30); Chloride 94 mmol/L (98-107); Glucose 91 mg/dL (74-99); Non-African American GFR(CKD) 35 (>60 ml/min/1.73 sqM); Potassium 4.5 mmol/L (3.5-5.1); Sodium 127 mmol/L (137-145)
[2024-05-19] MEDS: CALCIUM CARBONATE 500 MG CHEWABLE PO PRN (19:59)
[2024-05-20 08:53] LABS: BUN/Creat Ratio 25.17 Ratio (12.00-20.00); Blood Urea Nitrogen 30.2 mg/dL (9.0-27.0); Carbon Dioxide 22.1 mmol/L (21.6-31.8); Chloride 103 mmol/L (96-109); Glucose 100 mg/dL (70-110); Magnesium 2.5 mg/dL (1.5-2.4); Potassium 4.9 mmol/L (3.5-5.5); Sodium 133 mmol/L (135-145)
--- NOTE | 2024-05-20 12:35 | P.PN ---
Subjective Progress Note Date: 05/20/24 Subjective: Patient seen and examined at bedside. No acute events overnight. Pertinent positives and negatives as discussed above, a complete review of systems was performed and all other systems are negative. Vitals Signs Reviewed. General: Nontoxic, no distress, appears at stated age Derm: Warm, dry Head: Atraumatic, normocephalic, symmetric Eyes: EOMI, no lid lag, anicteric sclera Mouth: No lip lesion, mucus membranes moist Cardiovascular: S1S2 reg, no murmur Lungs: CTA bilateral, no rhonchi, no rales, no accessory muscle use Abdominal: Soft, nontender to palpation, no guarding, no appreciable organomegaly Ext: No gross muscle atrophy, no edema, no contractures, right ankle/foot and external fixation device, covered in dressing Neuro: CN II-XI grossly intact, no focal neuro deficits Psych: Alert, oriented, appropriate affect Data Reviewed Today: Pertinent Labs: Sodium 133, creatinine 1.2, magnesium 2.5 Imaging: No new imaging Assessment and Plan: Active: Right ankle fracture with dislocation status post external fixation -Orthopedic surgery note reviewed, planning for transfer -On oral [place] as needed, gabapentin 100 3 times daily, Flexeril 10 3 times daily, IV Dilaudid as needed, monitor for sedation -Bowel regimen and DVT prophylaxis per orthopedics Normocytic anemia -Likely in the setting of acute illness -No active bleeding Hyponatremia, possibly hypovolemic -Based on urine studies as well as patient's overall clinical picture, patient has been diet negative for the last few days, she was started on normal saline 75 cc an hour, and then had an acute drop in her sodium to 127 -Fluids now discontinued, sodium has been uptrending to 133. Nephrology also consulted. Hypertension -Continue atenolol 50 twice daily, hydralazine 50 3 times daily, losartan 100 daily Hypothyroidism -Continue levothyroxine 100 mcg daily Depression/anxiety -Continue duloxetine 30 mg daily, amitriptyline 20 nightly GERD -Continue pantoprazole 40 daily Thank you for allowing us to participate in the care of this pleasant patient. Do not hesitate to contact us with questions. Someone can be reached from the [facility] hospitalist group all hours of the day at [phone] or via perfect serve. Objective - Vital Signs Vital signs: Vital Signs Temp 97.9 F 05/20/24 07:10 Pulse 52 L 05/20/24 07:10 Resp 18 05/20/24 07:10 BP 167/79 05/20/24 07:10 Pulse Ox 98 05/20/24 07:10 FiO2 Intake & Output 05/19/24 05/20/24 05/20/24 18:59 06:59 18:59 Output Total 860 1000 650 Balance -860 -1000 -650 Output: Urine 860 1000 650 Straight 610 Other: Voiding Method External Catheter External Catheter External Catheter - Labs CBC & Chem 7: 05/19/24 03:03 05/20/24 03:01 Labs: Abnormal Lab Results - Last 24 Hours (Table) 05/19/24 05/20/24 Range/Units 17:59 03:01 Sodium 127 L 133 L (137-145) mmol/L Chloride 94 L (98-107) mmol/L BUN 37 H 30.2 H (7-17) mg/dL Creatinine 1.42 H (0.52-1.04) mg/dL Est GFR (CKD-EPI) 45 L (>=60) BUN/Creatinine Ratio 25.17 H (12.00-20.00) Ratio Calcium 8.3 L 8.0 L (8.4-10.2) mg/dL Magnesium 2.5 H (1.5-2.4) mg/dL
--- NOTE | 2024-05-20 12:53 | P.NPCON ---
History of Present Illness - Reason for Consult hyponatremia - History of Present Illness patient is an 83-year-old female status post emergent closed reduction and external fixation of a right ankle fracture on 05/16/2024. Underlying history of CK D stage IIIa with baseline creatinine around 1.2-1.4 mg/dL. Patient was noted to have a drop in serum sodium to 127 yesterday. She was given normal saline and sodium improved to 133 today. Saline was discontinued earlier this morning. Patient also reports that she has had decreased urine output. 1.86 L of urine output documented for 24 hours. Currently with an external catheter. Bladder scan showed 560 mL yesterday. No complaints of chest pain shortness of breath nausea or vomiting. Patient is complaining off heartburn. Serum creatinine has decreased to 1.2 today from 1.4 yesterday. Past Medical History Past Medical History: Coronary Artery Disease (CAD), Deep Vein Thrombosis (DVT), GERD/Reflux, Hyperlipidemia, Hypertension, Musculoskeletal Disorder, Osteoarthritis (OA), Thyroid Disorder Additional Past Medical History / Comment(s): Hx of DVT right leg about 5 yrs ago, hx migraines, vetebra "out of place," low back pain History of Any Multi-Drug Resistant Organisms: None Reported Past Surgical History: Back Surgery, Heart Catheterization With Stent, Tonsillectomy, Tubal Ligation Additional Past Surgical History / Comment(s): BILATERAL CATARACTS, COLONOSCOPY. one cardiac stent, Pain procedure, back surgery april Past Anesthesia/Blood Transfusion Reactions: No Reported Reaction Date of Last Stent Placement:: [id number] Past Psychological History: No Psychological Hx Reported Smoking Status: Never smoker - Past Family History Mother Family Medical History: No Reported History father Family Medical History: Coronary Artery Disease (CAD) Medications and Allergies Home Medications Medication Instructions Recorded Confirmed Type Levothyroxine Sodium [Levoxyl] 100 mcg PO DAILY 11/24/15 05/15/24 History Omeprazole [PriLOSEC] 20 mg PO DAILY 11/24/15 05/15/24 History Atorvastatin [Lipitor] 40 mg PO HS 12/14/20 05/15/24 History Losartan Potassium 100 mg PO DAILY 12/14/20 05/15/24 History DULoxetine HCL [Cymbalta] 30 mg PO DAILY 08/10/21 05/15/24 History Aspirin [Adult Low Dose Aspirin EC] 81 mg PO HS 08/25/21 05/15/24 History Calcium Carbonate/Vitamin D3 1 tab PO BID@0900,1300 01/13/22 05/15/24 History [Calcium 600-Vit D3 10 mcg (400 Iu)] Acetaminophen Tab [Tylenol Tab] 500 mg PO Q6H PRN 05/05/22 05/15/24 History Ascorbic Acid [Vitamin C] 2,000 mg PO DAILY 02/02/23 05/15/24 History atenoloL [Tenormin] 50 mg PO BID 02/02/23 05/15/24 History Amitriptyline HCl [Elavil] 20 mg PO HS 05/15/24 05/15/24 History Cyanocobalamin (Vitamin B-12) 2,500 mcg PO DAILY 05/15/24 05/15/24 History [Vitamin B-12] Magnesium 200 mg PO DAILY 05/15/24 05/15/24 History hydrALAZINE HCL [Apresoline] 50 mg PO TID 05/15/24 05/15/24 History Allergies Allergy/AdvReac Type Severity Reaction Status Date / Time No Known Allergies Allergy Verified 05/15/24 19:18 Physical Exam Vitals: Vital Signs Temp Pulse Resp BP Pulse Ox 05/20/24 07:10 97.9 F 52 L 18 167/79 98 05/20/24 00:44 98.6 F 61 16 135/61 94 L 05/19/24 20:59 110/60 05/19/24 19:17 98.4 F 61 19 90/57 94 L 05/19/24 15:28 55 L 106/60 05/19/24 14:00 97.7 F 65 18 90/56 94 L Intake and Output 05/19/24 05/20/24 05/20/24 22:59 06:59 14:59 Output Total 860 1000 650 Balance -860 -1000 -650 Output: Urine 860 1000 650 Straight 610 Other: Voiding Method External Catheter External Catheter examination shows patient is awake comfortable acute distress. Alert oriented 3. Examination of the heart S1 and S2 Examination of the lungs bilateral breath sounds are heard Abdomen is soft nontender Examination of lower extremities shows right leg in external fixator. No edema noted in the left leg [employer] exam grossly intact Results - Lab Results Most recent lab results Calcium 8.0 mg/dL (8.7-10.3) L 05/20/24 03:01 Magnesium 2.5 mg/dL (1.5-2.4) H 05/20/24 03:01 05/19/24 03:03 05/20/24 03:01 Assessment and Plan Assessment: 1. Hyponatremia, appears to be hypovolemic and improved with normal saline. Urine retention also contributing to hyponatremia. Serum sodium was 133 today. 2. Right ankle fractures status post closed reduction and external fixation. 3. Chronic kidney disease stage IIIa with baseline creatinine 1.2-1.4 mg/dL. Check UA 4. Hypothyroidism maintained on supplementation Plan: repeat sodium later today. Repeat bladder scan May continue off of saline for now Check UA Repeat labs in a.m. Check TSH Thank you for the consultation. We will continue to follow the patient with you during her hospitalization.
[2024-05-20 14:42] VITALS: RESP 16
[2024-05-20] MEDS: FAMOTIDINE 20 MG TAB PO SCH (16:55)
[2024-05-20 20:44] VITALS: TEMP 98.5
[2024-05-21 01:14] VITALS: BP 110/68; PULSE 74
[2024-05-21] MEDS ORDERED: FAMOTIDINE 20 MG TAB PO SCH (09:00)
== END 2024-05-21 02:51 | disposition short-term general hospital (02) | DRG 493 ==
LOC: EC 13:39 → 4SSUR 17:47 → OBSVTOIN 05-16 10:51
PROVIDERS: ADMIT Orthopaedic Surgery; ATTEND Orthopaedic Surgery
PROC: 0QSG35Z Reposition Right Tibia with External Fixation Device, Percutaneous Approach (ICD-10-PCS; principal; 2024-05-15 17:57)
DX: S82.851B Displaced trimalleolar fracture of right lower leg, initial encounter for open fracture type I or II (principal); E87.1 Hypo-osmolality and hyponatremia; N18.31 Chronic kidney disease, stage 3a; I12.9 Hypertensive chronic kidney disease with stage 1 through stage 4 chronic kidney disease, or unspecified chronic kidney disease; I25.10 Atherosclerotic heart disease of native coronary artery without angina pectoris; K21.9 Gastro-esophageal reflux disease without esophagitis; E78.5 Hyperlipidemia, unspecified; M19.90 Unspecified osteoarthritis, unspecified site; E03.9 Hypothyroidism, unspecified; D64.9 Anemia, unspecified; F32.A Depression, unspecified; F41.9 Anxiety disorder, unspecified; W00.0XXA Fall on same level due to ice and snow, initial encounter; Z79.899 Other long term (current) drug therapy; Z79.890 Hormone replacement therapy; Z79.82 Long term (current) use of aspirin; Z86.718 Personal history of other venous thrombosis and embolism
CPT/HCPCS: 27840; 80048; 80053; 83735; 83935; 84300; 84443; 85025; 85610; 85730; 86850; 86900; 86901; 96365; 96375; 99152; 99285

== ENCOUNTER → 2024-09-29 | Outpatient (CLI) | payer MEDICARE ==
[2024-09-29 18:45] LABS: Basophils # (A) 0.04 X 10*3/uL (0.00-0.10); Basophils % (A) 0.6 %; Eosinophils # (A) 0.25 X 10*3/uL (0.04-0.35); Eosinophils % (A) 3.6 %; HCT 36.8 % (37.2-46.3); HGB 11.6 g/dL (12.0-15.0); Lymphocytes # (A) 0.94 X 10*3/uL (0.90-5.00); Lymphocytes % (A) 13.7 %; MCH 27.7 pg (27.0-32.0); MCHC 31.5 g/dL (32.0-37.0); MCV 87.8 FL (80.0-97.0); Mean Platelet Volume 9.5 FL (9.5-12.2); Monocytes # (A) 0.97 X 10*3/uL (0.20-1.00); Monocytes % (A) 14.1 %; NRBC Per 100 WBC 0 X 10*3/uL (0.00-0.01); Neutrophils # (A) 4.64 X 10*3/uL (1.80-7.70); Neutrophils % (A) 67.7 %; Platelet Count 278 X 10*3/uL (140-440); RBC 4.19 X 10*6/uL (4.10-5.20); RDW 15.4 % (11.5-14.5); WBC 6.86 X 10*3/uL (4.50-10.00)
[2024-09-29 20:32] LABS: Centromere Antibody <0.2 AI; Centromere Antibody Interp Negative (Negative); DNA Double-Stranded Negative (Negative)
[2024-09-29 22:25] LABS: ALT 17 U/L (8-44); AST 22 U/L (13-35); Albumin 4.1 g/dL (3.8-4.9); Albumin/Globulin Ratio 1.78 Ratio (1.60-3.17); Alkaline Phosphatase 68 U/L (41-126); BUN/Creat Ratio 28.75 Ratio (12.00-20.00); Blood Urea Nitrogen 34.5 mg/dL (9.0-27.0); Calcium 10.2 mg/dL (8.7-10.3); Carbon Dioxide 24.6 mmol/L (21.6-31.8); Chloride 104 mmol/L (96-109); Chol/HDL Ratio 2.66 Ratio; Globulin 2.3 g/dL (1.6-3.3); Glucose 90 mg/dL (70-110); LDL Cholesterol,Calculated 61.8 mg/dL (0.0-131.0); Magnesium 1.9 mg/dL (1.5-2.4); Potassium 4.9 mmol/L (3.5-5.5); Rheumatoid Factor, Qnt <15 IU/mL (0-15); Sodium 140 mmol/L (135-145); Total Bilirubin 0.3 mg/dL (0.3-1.2); Total Protein 6.4 g/dL (6.2-8.2)
[2024-09-30 02:20] LABS: Cyclic Citrull Pep IgG Unit <1.5 U/mL (<=3.9); Cyclic Citrullinated Pep IgG Negative
== END | disposition home or self-care (01) ==
LOC: LABWHC1 12:28
PROVIDERS: ATTEND Internal Medicine
DX: E03.9 Hypothyroidism, unspecified (principal); M81.0 Age-related osteoporosis without current pathological fracture; N18.30 Chronic kidney disease, stage 3 unspecified; M47.816 Spondylosis without myelopathy or radiculopathy, lumbar region
CPT/HCPCS: 36415; 80053; 80061; 82306; 83735; 83970; 84439; 84443; 85025; 86038; 86200; 86225; 86235; 86431

== ENCOUNTER → 2024-11-06 | Outpatient (CLI) | payer MEDICARE ==
[2024-11-06] MEDS: DENOSUMAB 60 MG/ML 1 ML SYRINGE SQ NR (13:46)
[2024-11-06 13:47] VITALS: BP 123/74; PULSE 60; RESP 18; TEMP 97.8
== END ==
LOC: PROCWHC3 13:26
PROVIDERS: ATTEND Internal Medicine
DX: M81.0 Age-related osteoporosis without current pathological fracture (principal)
CPT/HCPCS: 96372; J0897

== ENCOUNTER → 2024-11-13 | Outpatient (CLI) | payer MEDICARE ==
--- NOTE | 2024-11-13 21:33 | XR ---
EXAMINATION TYPE: XR shoulder complete RT DATE OF EXAM: 11/13/2024 10:44 AM COMPARISON: None. CLINICAL INDICATION: Female, 84 years old with history of M25.511 Right shoulder pain, Pain TECHNIQUE: XR shoulder complete RT view(s) obtained. FINDINGS: The humeral head articulates with the glenoid. The acromio-clavicular junction is normal. No acute fractures or dislocations are evident. A follow up study can be performed 7-10 days from acute trauma for continued pain. MRI can be perfor med if soft tissue evaluation would be of benefit. IMPRESSION: 1. No acute osseous shoulder abnormality. [facility], , 11/13/2024 9:30 PM
== END | disposition home or self-care (01) ==
LOC: RADXRMAIN 10:25
PROVIDERS: ATTEND Internal Medicine
DX: M25.511 Pain in right shoulder (principal)

== ENCOUNTER 2024-11-16 12:05 | Emergency (ER) | payer MEDICARE ==
[2024-11-16 12:10] VITALS: RESP 18
--- NOTE | 2024-11-16 12:16 | ED ---
General Adult HPI - General Chief complaint: Nausea/Vomiting/Diarrhea Stated complaint: Back Pain/Vomiting Time Seen by Provider: 11/16/24 12:11 Source: patient Mode of arrival: ambulatory Limitations: no limitations - History of Present Illness Initial comments: Patient presents to the ED with her for evaluation. Patient states that she felt a fairly sudden "spasm" and pain in her right lumbar back after bending over to pick something up yesterday evening. Patient states that this pain has continued since then, and she states that she has not gotten much sleep due to the pain. Patient also states that she has had associated nausea and vomiting. Patient has a history of lumbar fusion surgery performed by Dr. Taylor. Patient also has a history of abdominal aneurysms. Patient denies trauma or fall, fever or chills, headache, focal numbness/weakness/neuro deficit, leg pain/numbness/weakness, incontinence, urinary retention, dy suria/hematuria/urinary frequency/urinary symptoms, chest pain, dyspnea, dizziness, abdominal pain, diarrhea or constipation, bloody or melanotic stool, hematemesis, or any other symptoms or complaints. Patient denies taking any medication for her pain today. Patient states that her pain is currently 9/10 in severity. - Related Data Home Medications Medication Instructions Recorded Confirmed Levothyroxine Sodium [Levoxyl] 100 mcg PO DAILY 11/24/15 11/06/24 Omeprazole [PriLOSEC] 20 mg PO DAILY 11/24/15 11/06/24 Atorvastatin [Lipitor] 40 mg PO HS 12/14/20 11/06/24 Losartan Potassium 100 mg PO DAILY 12/14/20 11/06/24 DULoxetine HCL [Cymbalta] 30 mg PO DAILY 08/10/21 11/06/24 Aspirin [Adult Low Dose Aspirin EC] 81 mg PO HS 08/25/21 11/06/24 Calcium Carbonate/Vitamin D3 1 tab PO BID@0900,1300 01/13/22 11/06/24 [Calcium 600-Vit D3 10 mcg (400 Iu)] Acetaminophen Tab [Tylenol Tab] 500 mg PO Q6H PRN 05/05/22 11/06/24 Ascorbic Acid [Vitamin C] 2,000 mg PO DAILY 02/02/23 11/06/24 atenoloL [Tenormin] 50 mg PO BID 02/02/23 11/06/24 Amitriptyline HCl [Elavil] 20 mg PO HS 05/15/24 11/06/24 Cyanocobalamin (Vitamin B-12) 2,500 mcg PO DAILY 05/15/24 11/06/24 [Vitamin B-12] Magnesium 200 mg PO DAILY 05/15/24 11/06/24 hydrALAZINE HCL [Apresoline] 50 mg PO TID 05/15/24 11/06/24 Allergies Allergy/AdvReac Type Severity Reaction Status Date / Time No Known Allergies Allergy Verified 11/16/24 12:09 Review of Systems ROS Statement: Those systems with pertinent positive or pertinent negative responses have been documented in the HPI. ROS Other: All systems not noted in ROS Statement are negative. Past Medical History Past Medical History: Coronary Artery Disease (CAD), Deep Vein Thrombosis (DVT), GERD/Reflux, Hyperlipidemia, Hypertension, Musculoskeletal Disorder, Osteoarthr itis (OA), Thyroid Disorder Additional Past Medical History / Comment(s): Hx of DVT right leg about 5 yrs ago, hx migraines, vetebra "out of place," low back pain History of Any Multi-Drug Resistant Organisms: None Reported Past Surgical History: Back Surgery, Heart Catheterization With Stent, Tonsillectomy, Tubal Ligation Additional Past Surgical History / Comment(s): BILATERAL CATARACTS, COLONOSCOPY. one cardiac stent, Pain procedure, back surgery april Past Anesthesia/Blood Transfusion Reactions: No Reported Reaction Date of Last Stent Placement:: [id number] Past Psychological History: No Psychological Hx Reported Smoking Status: Never smoker - Past Family History Mother Family Medical History: No Reported History father Family Medical History: Coronary Artery Disease (CAD) General Exam Limitations: no limitations General appearance: alert Head exam: Present: atraumatic Eye exam: Present: normal appearance ENT exam: Present: mucous membranes moist Respiratory exam: Present: normal lung sounds bilaterally. Absent: respiratory distress, wheezes, rales, rhonchi, stridor Cardiovascular Exam: Present: regular rate, normal rhythm, normal heart sounds, other (Normal radial and dorsalis pedis pulses bilaterally) GI/Abdominal exam: Present: soft. Absent: distended, tenderness, guarding Extremities exam: Present: full ROM, other (No evidence of lower extremity neurological deficit or saddle anesthesia on exam). Absent: tenderness, pedal edema, calf tenderness Back exam: Present: normal inspection. Absent: tenderness, CVA tenderness (R), CVA tenderness (L) Neurological exam: Present: alert, oriented X3. Absent: motor sensory deficit Psychiatric exam: Present: normal affect Skin exam: Present: warm, dry, normal color Course Vital Signs 11/16/24 11/16/24 11/16/24 12:06 13:39 14:12 Temperature 98.0 F Pulse Rate 60 65 Respiratory 18 18 Rate Blood Pressure 224/97 210/104 202/97 O2 Sat by Pulse 97 93 L Oximetry 11/16/24 14:19 Temperature Pulse Rate Respiratory Rate Blood Pressure 194/92 O2 Sat by Pulse Oximetry - Reevaluation(s) Reevaluation #1: 11/16/24 14:24 Patient reports improvement in her pain and nausea with ED treatment. Patient's blood pressure is still elevated, but has improved since her arrival to the ED. I suspect that her pain may be contributing to her elevated blood pressure, but patient does report having underlying hypertension. Patient denies development of any new symptoms while in the ED. Patient and are aware the patient's test results, and they both feel comfortable with the patient being discharged home at this time. They were counseled about lumbar back pain, nausea/vomiting and hypertension. They were clearly explained return and follow-up instructions. They were instructed to have the patient follow-up closely with her primary care provider. They feel comfortable with this plan. Patient will be discharged home at this time with starter packs for Tylenol 3's and ODT Zofran provided in the ED. Medical Decision Making - Medical Decision Making Was pt. sent in by a medical professional or institution ([facility]IL[facility], TRAINING OFFICER, urgent care, hospital, or custodial...) When possible be specific @ -No Did you speak to anyone other than the patient for history (EMS, parent, family, police, friend...)? What history was obtained from this source @ -No Did you review nursing and triage notes (agree or disagree)? Why? @ -I reviewed and agree with nursing and triage notes Were old charts reviewed (outside hosp., previous admission, EMS record, old EKG, old radiological studies, urgent care reports/EKG's, custodial records)? Report findings @ -No old charts were reviewed Differential Diagnosis (chest pain, altered mental status, abdominal pain women, abdominal pain men, vaginal bleeding, weakness, fever, dyspnea, syncope, headache, dizziness, GI bleed, back pain, seizure, CVA, palpatations, mental health, musculoskeletal)? @ -Differential Back Pain: Strain, cauda equina syndrome, epidural abscess, vertebral osteomyelitis, discitis, fracture, subluxation, disc herniation, DJD, spinal stenosis, dissection, AAA, pancreatitis, pyelonephritis, kidney stone, this is not meant to be an all-inclusive list. EKG interpreted by me (3pts min.). @ -None done X-rays interpreted by me (1pt min.). @ -None done CT interpreted by me (1pt min.). @ -CT abdomen/pelvis with IV contrast was reviewed myself and shows no acute abdominal process or acute fracture. I agree with the radiologist's interpretation as above. U/S interpreted by me (1pt. min.). @ -None done What testing was considered but not performed or refused? (CT, X-rays, U/S, labs)? Why? @ -None What meds were considered but not given or refused? Why? @ -None Did you discuss the management of the patient with other professionals (professionals i.e. , PA, TRAINING OFFICER, lab, RT, psych nurse, nephrology social worker, video library assistant, teacher, employee service officer, rn case manager)? Give summary @ -No Was smoking cessation discussed for >3mins.? @ -No Was critical care preformed (if so, how long)? @ -No Were there social determinants of health that impacted care today? How? (Homelessness, low income, unemployed, alcoholism, drug addiction, transportation, low edu. Level, literacy, decrease access to med. care, residential, rehab)? @ -No Was there de-escalation of care discussed even if they declined (Discuss DNR or withdrawal of care, Hospice)? DNR status @ -No What co-morbidities impacted this encounter? (DM, HTN, Smoking, COPD, CAD, Cancer, CVA, ARF, Chemo, Hep., AIDS, mental health diagnosis, sleep apnea, morbid obesity)? @ -None Was patient admitted / discharged? Hospital course, mention meds given and route, prescriptions, significant lab abnormalities, going to OR and other pertinent info. @ -Patient's pain, nausea and blood pressure have improved with ED management. Patient has a normal lower extremity neurological exam without any evidence of saddle anesthesia. Patient CT is negative for renal stones or ruptured aneurysm. Patient's UA is fairly unremarkable. I suspect that the patient's back pain is musculoskeletal in etiology. Will discharge the patient home at this time with her . Strict return and follow-up instructions were provided. Patient and feel comfortable with this plan. Undiagnosed new problem with uncertain prognosis? @ -No Drug Therapy requiring intensive monitoring for toxicity (Heparin, Nitro, Insulin, Cardizem)? @ -No Were any procedures done? @ -No Diagnosis/symptom? @ -Lumbar back pain Acute, or Chronic, or Acute on Chronic? @ -Acute on chronic Uncomplicated (without systemic symptoms) or Complicated (systemic symptoms)? @ -Default Side effects of treatment? @ -No Exacerbation, Progression, or Severe Exacerbation? @ -No Poses a threat to life or bodily function? How? (Chest pain, [place], [place], pneumonia, PE, COPD, DKA, ARF, appy, cholecystitis, CVA, Diverticulitis, Homicidal, Suicidal, threat to staff... and all critical care pts) @ -No Diagnosis/symptom? @ -Nausea and vomiting Acute, or Chronic, or Acute on Chronic? @ -Acute Uncomplicated (without systemic symptoms) or Complicated (systemic symptoms)? @ -Default Side effects of treatment? @ -None Exacerbation, Progression, or Severe Exacerbation] @ -No Poses a threat to life or bodily function? @ -No Diagnosis/symptom? @ -Elevated blood pressure Acute, or Chronic, or Acute on Chronic? @ -Acute on chronic Uncomplicated (without systemic symptoms) or Complicated (systemic symptoms)? @ -Default Side effects of treatment? @ -None Exacerbation, Progression, or Severe Exacerbation] @ -No Poses a threat to life or bodily function? @ -No - Lab Data Result diagrams: 11/16/24 12:42 11/16/24 12:42 Lab Results 11/16/24 11/16/24 11/16/24 Range/Units 12:42 12:42 13:38 WBC 13.18 H (4.50-10.00) 10*3/uL RBC 3.80 L (4.10-5.20) 10*6/uL Hgb 10.9 L (12.0-15.0) g/dL Hct 33.7 L (37.2-46.3) % MCV 88.7 (80.0-97.0) fL MCH 28.7 (27.0-32.0) pg MCHC 32.3 (32.0-37.0) g/dL Plt Count 252 (140-440) 10*3/uL MPV 9.1 L (9.5-12.2) fL Immature Gran % (Auto) 0.5 % Neutrophils % 78.6 % Lymphocytes % 6.5 % Monocytes % 14.1 % Eosinophils % 0.1 % Basophils % 0.2 % Immature Gran # 0.07 H (0.00-0.04) 10*3/uL Neutrophils # 10.35 H (1.80-7.70) 10*3/uL Lymphocytes # 0.86 L (0.90-5.00) 10*3/uL Monocytes # 1.86 H (0.20-1.00) 10*3/uL Eosinophils # 0.01 L (0.04-0.35) 10*3/uL Basophils # 0.03 (0.00-0.10) 10*3/uL Sodium 131 L (137-145) mmol/L Potassium 4.6 (3.5-5.1) mmol/L Chloride 99 (98-107) mmol/L Carbon Dioxide 20 L (22-30) mmol/L Anion Gap 12 mmol/L BUN 42 H (7-17) mg/dL Creatinine 0.87 (0.52-1.04) mg/dL Est GFR (CKD-EPI)AfAm 72 (>60 ml/min/1.73 sqM) Est GFR (CKD-EPI)NonAf 62 (>60 ml/min/1.73 sqM) Glucose 115 H (74-99) mg/dL Calcium 10.1 (8.4-10.2) mg/dL Total Bilirubin 0.7 (0.2-1.3) mg/dL AST 34 (14-36) U/L ALT 19 (4-34) U/L Alkaline Phosphatase 78 (38-126) U/L Total Protein 7.1 (6.3-8.2) g/dL Albumin 4.5 (3.5-5.0) g/dL Lipase 92 (23-300) U/L Urine Color Colorless Urine Appearance Clear (Clear) Urine pH 6.5 (5.0-8.0) Ur Specific [place] 1.027 (1.001-1.035) Urine Protein Negative (Negative) Urine Glucose (UA) Negative (Negative) Urine Ketones Negative (Negative) Urine Blood Negative (Negative) Urine Nitrite Negative (Negative) Urine Bilirubin Negative (Negative) Urine Urobilinogen <2.0 (<2.0) mg/dL Ur Leukocyte Esterase Negative (Negative) - Radiology Data CT abdomen/pelvis with IV contrast: 1. No evidence for acute abdominal process. 2. Postsurgical changes spine with hardware intact. No evidence for spinal f racture. 3. Stable compression deformities throughout the spine. 4. Fusiform abdominal aortic aneurysm up to 4.5 cm stable back to 04/09/2024 given differences in technique. 5. Colonic diverticulosis. 6. Atrophic right kidney. 7. Severe atherosclerosis throughout the visualized arterial vasculature. Disposition Clinical Impression: Lumbar back pain, Nausea and vomiting, Elevated blood pressure reading Disposition: HOME SELF-CARE Condition: Stable Instructions (If sedation given, give patient instructions): Acute Nausea and Vomiting (ED), Hypertension (ED), Back Pain (ED) Additional Instructions: Return to the ER immediately should develop new or worsening pain, persistent vomiting, a fever, chest pain, shortness of breath, feeling dizzy or faint, leg numbness or weakness, trouble controlling your bladder or bowels, or new or worsening symptoms. Follow-up closely with your primary care provider. Is patient prescribed a controlled substance at d/c from ED?: No Referrals: Levi Garg DO [Primary Care Provider] - 1-2 days Time of Disposition: 14:33
[2024-11-16] MEDS: ONDANSETRON 4 MG/2 ML VIAL IVP STA (12:39)
[2024-11-16] MEDS: HYDROmorphone 1 MG/ML 1 ML SYRINGE IVP STA (12:40)
[2024-11-16] MEDS: SODIUM CHLORIDE 0.9% 500 ML 500 ML IV STA (12:41)
[2024-11-16 12:46] LABS: Basophils # (A) 0.03 10*3/uL (0.00-0.10); Basophils % (A) 0.2 %; Eosinophils # (A) 0.01 10*3/uL (0.04-0.35); Eosinophils % (A) 0.1 %; HCT 33.7 % (37.2-46.3); HGB 10.9 g/dL (12.0-15.0); Lymphocytes # (A) 0.86 10*3/uL (0.90-5.00); Lymphocytes % (A) 6.5 %; MCH 28.7 pg (27.0-32.0); MCHC 32.3 g/dL (32.0-37.0); MCV 88.7 fL (80.0-97.0); Mean Platelet Volume 9.1 fL (9.5-12.2); Monocytes # (A) 1.86 10*3/uL (0.20-1.00); Monocytes % (A) 14.1 %; Neutrophils # (A) 10.35 10*3/uL (1.80-7.70); Neutrophils % (A) 78.6 %; Platelet Count 252 10*3/uL (140-440); RDW 17.6 % (11.5-14.5); WBC 13.18 10*3/uL (4.50-10.00)
[2024-11-16 13:00] LABS: ALT 19 U/L (4-34); African American GFR (CKD) 72 (>60 ml/min/1.73 sqM); Albumin 4.5 g/dL (3.5-5.0); Anion Gap 12 mmol/L; Blood Urea Nitrogen 42 mg/dL (7-17); Calcium 10.1 mg/dL (8.4-10.2); Carbon Dioxide 20 mmol/L (22-30); Chloride 99 mmol/L (98-107); Glucose 115 mg/dL (74-99); Lipase 92 U/L (23-300); Non-African American GFR(CKD) 62 (>60 ml/min/1.73 sqM); Sodium 131 mmol/L (137-145); Total Bilirubin 0.7 mg/dL (0.2-1.3); Total Protein 7.1 g/dL (6.3-8.2)
[2024-11-16 13:02] LABS: AST 34 U/L (14-36); Alkaline Phosphatase 78 U/L (38-126); Potassium 4.6 mmol/L (3.5-5.1)
[2024-11-16 13:47] LABS: Appearance,Urine Clear (Clear); Bilirubin,Urine Negative (Negative); Blood,Urine Negative (Negative); Color,Urine Colorless; Glucose,Urine (UA) Negative (Negative); Ketones,Urine Negative (Negative); Leukocyte Esterase,Urine Negative (Negative); Nitrite,Urine Negative (Negative); PH, Urine 6.5 (5.0-8.0); Protein,Urine Negative (Negative); Specific Gravity,Urine 1.027 (1.001-1.035); Urobilinogen,Urine <2.0 mg/dL (<2.0)
[2024-11-16] MEDS: HYDROmorphone 0.5 MG/0.5 ML SYRINGE IVP STA (13:51)
[2024-11-16] MEDS: hydrALAZINE HCL 20 MG/ML 1 ML VIAL IVP STA (13:53)
--- NOTE | 2024-11-16 13:55 | CT ---
EXAMINATION TYPE: CT abdomen pelvis w con DATE OF EXAM: 11/16/2024 1:29 PM COMPARISON: 04/09/2024. CLINICAL INDICATION: Female, 84 years old with history of Right lumbar back pain, vomiting, h/o AAA; PT HAVING LOWER LUMBAR BACK PAIN AND VOMITING. HX OF AAA TECHNIQUE: Axial CT abdomen pelvis w con;Sagittal and coronal reformats were created on a separate w orkstation. Contrast used:100 mL of Isovue 300 with IV Contrast, (none if empty) Oral contrast used: without Oral Contrast (none if empty) CT DLP: 769.2 mGycm, Automated exposure control for dose reduction was used. FINDINGS: LOWER CHEST: Unremarkable ABDOMEN LIVER: Unremarkable GALLBLADDER AND BILE DUCTS: Unremarkable. PANCREAS: Unremarkable. SPLEEN: Unremarkable. ADRENAL GLANDS: Unremarkable. KIDNEYS AND URETERS: Atrophic right kidney. No evidence of hydronephrosis or obstructing renal calcul us. The ureters are unremarkable. PELVIS BLADDER: No evidence for wall thickening or mass given limitations of exam. REPRODUCTIVE: The uterus is surgically absent. ABDOMEN & PELVIS STOMACH AND BOWEL: No evidence of bowel obstruction. Scattered colonic diverticula. PERITONEUM/RETROPERITONEUM: No evidence of pneumoperitoneum or free fluid. VASCULATURE: No evidence of aortic aneurysm. Severe atherosclerosis of the arterial vasculature. Ther e is fusiform aneurysmal dilation up to 4.5 cm with mural thrombus. MUSCULOSKELETAL: No acute osseous abnormalities. Moderate disc degeneration changes are present throu ghout the thoracolumbar spine. Stable L1 vertebral body spur endplate deformity, stable biconcave def ormity to the L3 vertebral body. Fixation hardware for L5 and S1 is intact. Discectomy at L4-L5 and L 5-S1 is present. LYMPH NODES: No gross evidence for lymphadenopathy. SOFT TISSUE/ABDOMINAL WALL: Fat-containing umbilical hernia. IMPRESSION: 1. No evidence for acute abdominal process. 2. Postsurgical changes spine with hardware intact. No evidence for spinal fracture. 3. Stable compression deformities throughout the spine. 4. Fusiform abdominal aortic aneurysm up to 4.5 cm stable back to 04/09/2024 given differences in [place]. 5. Colonic diverticulosis. 6. Atrophic right kidney. 7. Severe atherosclerosis throughout the visualized arterial vasculature. [facility], , 11/16/2024 1:52 PM
[2024-11-16 14:38] VITALS: BP 199/95; PULSE 68; TEMP 98.2
[2024-11-16] MEDS: ACET/COD 300 MG/30 MG STARTER PACK 6 TAB BTL PO STA (14:38)
[2024-11-16] MEDS: ONDANSETRON 4 MG ODT STARTER PACK 2 TAB BTL PO STA (14:38)
== END 2024-11-16 14:48 | disposition home or self-care (01) ==
LOC: EC 12:05
DX: R11.2 Nausea with vomiting, unspecified (principal); M54.50 Low back pain, unspecified; R03.0 Elevated blood-pressure reading, without diagnosis of hypertension; K57.30 Diverticulosis of large intestine without perforation or abscess without bleeding; I70.90 Unspecified atherosclerosis; N26.1 Atrophy of kidney (terminal)
CPT/HCPCS: 36415; 80053; 83690; 85025; 81003; 74177; 99284; 96374; 96375 ×2; 96376; 96361; J0360; J2405; J1171 ×2; S0119; Q9967